=== PATIENT | male | born 1965 | race Caucasian/White ===

== ENCOUNTER 2016-12-04 13:49 | Inpatient (IN) | payer MEDICAID ==
[~2016-12-04] VITALS: Ht 185.4 cm; Wt 93.5 kg
[~2016-12-04 13:49] MED LIST: ASPI-496 PO; ATOR20TA9 PO; BLOOD PRESSURE MED; CARV3.1212 PO; DOCU-131 PO; GABA-826 PO; GABA300C10 PO; INSU100C5 SQ-INSULIN; INSU100I13 SQ; INSU100V8 SQ; LISI-167 PO; LOVA10TA PO; METF500T4 PO; NICO1PAT13 TD; NOVALOG SQ-INSULIN; OMEP-110 PO; OXYC5TAB3 PO; PANT40TA3 PO; POLY17PO5 PO; TRAM50TA2 PO; TRAZ100T15 PO; [UNRECOGNIZED DRUG - REMARK]
[2016-12-04] MEDS ORDERED: ONDANSETRON 2MG/ML, 2ML ONE (14:23)
[2016-12-04] MEDS ORDERED: FAMOTIDINE 20 MG/2 ML ONE (14:23)
[2016-12-04] MEDS ORDERED: FAMOTIDINE 20 MG/2 ML IVPush ONE (14:30)
[2016-12-04] MEDS ORDERED: ONDANSETRON 2MG/ML, 2ML IVPush ONE (14:30)
[2016-12-04] MEDS ORDERED: SODIUM CHLORIDE 0.9% 1,000ML IVBOLUS ONE ×2 (14:30→15:30)
[2016-12-04 14:34] LABS: PH, VENOUS 7.413 pH (7.320-7.420)
[2016-12-04 14:38] LABS: HEMATOCRIT 43.4 % (39.2-51.8); HEMOGLOBIN 14.2 g/dL (13.7-18.0); WHITE BLOOD COUNT 15.6 x10^3/uL (3.4-10)
[2016-12-04 14:47] LABS: ASPARTATE AMINO TRANSFERASE 10 U/L (15-37); BLOOD UREA NITROGEN 30 mg/dL (7-18)
[2016-12-04 14:53] LABS: IS PT STATUS REG ER OR PRE ER? YES
[2016-12-04] MEDS ORDERED: INSULIN REGULAR 100 UNITS/ML, 3ML VIAL IVPush ONE (15:00)
[2016-12-04] MEDS ORDERED: INSULIN SINGLE DOSE, ER SQ-INSULIN ONE (15:19)
[2016-12-04 17:54] VITALS: BP 101/65
[2016-12-04] MEDS ORDERED: ACETAMINOPHEN 325 MG TABLET PO PRN (18:30)
[2016-12-04] MEDS ORDERED: BISACODYL 10 MG SUPP PR PRN (18:30)
[2016-12-04] MEDS ORDERED: hydrALAzine 20 MG/ML, 1ML IVPush PRN (18:30)
[2016-12-04] MEDS ORDERED: ENALAPRILAT 1.25 MG/ML, 2ML IVPush PRN (18:30)
[2016-12-04] MEDS ORDERED: POLYETHYLENE GLYCOL 17 GM PACKET PO PRN (18:30)
[2016-12-04] MEDS ORDERED: ONDANSETRON 2MG/ML, 2ML IVPush PRN (18:30)
[2016-12-04] MEDS: INSULIN DETEMIR 100 UNITS/ML, PEN SQ-INSULIN SCH (19:07)
[2016-12-04 19:35] VITALS: BP 122/67
[2016-12-04] MEDS: HEPARIN 5,000 UNITS/ML, 1ML SQ SCH (19:35)
[2016-12-04] MEDS: PANTOPROZOLE 40MG TABLET PO SCH (19:35)
[2016-12-04] MEDS: SODIUM CHLORIDE 0.9% 1,000 ML IV SCH (19:36)
[2016-12-04] MEDS: OXYcodone IR 5MG TABLET PO PRN (19:43)
[2016-12-04] MEDS: INSULIN ASPART 100 UNITS/ML, PEN SQ-INSULIN SCH (21:00)
[2016-12-04] MEDS ORDERED: GABAPENTIN 300 MG CAPSULE PO SCH (21:00)
[2016-12-04] MEDS ORDERED: OMEPRAZOLE 20 MG CAPSULE.DR PO SCH (21:00)
[2016-12-04] MEDS: ATORVASTATIN 20 MG TABLET PO SCH (21:01)
[2016-12-04] MEDS: CARVEDILOL 3.125 MG TABLET PO SCH (21:01)
[2016-12-04] MEDS: GABAPENTIN 300 MG CAPSULE PO SCH (21:02)
[2016-12-05 00:07] LABS: IS PT STATUS REG ER OR PRE ER? NO
[2016-12-05] MEDS: HYDROmorphone 2 MG/ML, 1ML IVPush PRN ×2 (00:19→07:59)
[2016-12-05] MEDS: HEPARIN 5,000 UNITS/ML, 1ML SQ SCH ×3 (02:30→18:25)
[2016-12-05 05:35] VITALS: BP 124/72
[2016-12-05 05:59] LABS: HEMATOCRIT 38.3 % (39.2-51.8); HEMOGLOBIN 12.5 g/dL (13.7-18.0); WHITE BLOOD COUNT 13.4 x10^3/uL (3.4-10)
[2016-12-05 06:21] LABS: IS PT STATUS REG ER OR PRE ER? NO
[2016-12-05 06:22] LABS: ASPARTATE AMINO TRANSFERASE 57 U/L (15-37); BLOOD UREA NITROGEN 33 mg/dL (7-18)
[2016-12-05] MEDS: INSULIN DETEMIR 100 UNITS/ML, PEN SQ-INSULIN SCH ×2 (07:13→21:42)
[2016-12-05] MEDS: SODIUM CHLORIDE 0.9% 1,000 ML IV SCH (07:16)
[2016-12-05 07:51] VITALS: BP 104/63
[2016-12-05] MEDS: INSULIN ASPART 100 UNITS/ML, PEN SQ-INSULIN SCH ×4 (07:58→21:43)
[2016-12-05] MEDS ORDERED: INSULIN DETEMIR 100 UNITS/ML, PEN SQ-INSULIN ONE (08:00)
[2016-12-05] MEDS: GABAPENTIN 300 MG CAPSULE PO SCH ×3 (08:03→21:15)
[2016-12-05] MEDS: CARVEDILOL 3.125 MG TABLET PO SCH ×2 (08:03→21:15)
[2016-12-05] MEDS: PANTOPROZOLE 40MG TABLET PO SCH (08:03)
[2016-12-05] MEDS: ASPIRIN 81 MG TABLET EC PO SCH (08:03)
[2016-12-05] MEDS ORDERED: CEFTRIAXONE PMX 2GM/50ML 50 ML IV SCH (08:30)
[2016-12-05] MEDS ORDERED: VANCOMYCIN PMX 1GM/200ML 200 ML IV ONE (09:00)
[2016-12-05] MEDS ORDERED: VANCOMYCIN PER PHARMACY MC PRN (09:00)
[2016-12-05] MEDS ORDERED: PHARMACOKINETIC CONSULTATION MC ONE (09:30)
[2016-12-05] MEDS ORDERED: PHARMACOKINETIC MONITORING MC PRN (09:30)
[2016-12-05] MEDS: VANCOMYCIN 1,900 MG in SODIUM CHLORIDE 0.9% 250 ML IV SCH (10:24)
[2016-12-05 14:56] VITALS: BP 133/76
[2016-12-05] MEDS: OXYcodone IR 5MG TABLET PO PRN ×2 (16:54→21:41)
[2016-12-05 18:42] VITALS: BP 102/62
[2016-12-05] MEDS ORDERED: GADOBUTROL 10 MMOL/10 ML PFS ONE (19:26)
[2016-12-05] MEDS: ATORVASTATIN 20 MG TABLET PO SCH (21:15)
[2016-12-06 02:00] VITALS: BP 113/64
[2016-12-06] MEDS: HEPARIN 5,000 UNITS/ML, 1ML SQ SCH ×3 (02:01→18:30)
[2016-12-06 05:04] LABS: HEMATOCRIT 34.1 % (39.2-51.8); HEMOGLOBIN 11.2 g/dL (13.7-18.0); WHITE BLOOD COUNT 9.7 x10^3/uL (3.4-10)
[2016-12-06 05:10] LABS: BLOOD UREA NITROGEN 39 mg/dL (7-18)
[2016-12-06 06:38] VITALS: BP 123/76
[2016-12-06] MEDS: ASPIRIN 81 MG TABLET EC PO SCH (08:19)
[2016-12-06] MEDS: PANTOPROZOLE 40MG TABLET PO SCH (08:19)
[2016-12-06] MEDS: GABAPENTIN 300 MG CAPSULE PO SCH ×3 (08:19→20:46)
[2016-12-06] MEDS: INSULIN DETEMIR 100 UNITS/ML, PEN SQ-INSULIN SCH ×2 (08:20→20:44)
[2016-12-06] MEDS: INSULIN ASPART 100 UNITS/ML, PEN SQ-INSULIN SCH ×4 (08:21→20:45)
[2016-12-06] MEDS: CARVEDILOL 3.125 MG TABLET PO SCH ×2 (08:22→20:46)
[2016-12-06] MEDS: VANCOMYCIN 1,900 MG in SODIUM CHLORIDE 0.9% 250 ML IV SCH (10:06)
[2016-12-06] MEDS: SODIUM CHLORIDE 0.9% 1,000 ML IV SCH ×2 (12:21→20:46)
[2016-12-06 14:08] VITALS: BP 108/64
[2016-12-06 18:30] VITALS: BP 112/60
[2016-12-06 18:55] VITALS: BP 110/65
[2016-12-06] MEDS: ATORVASTATIN 20 MG TABLET PO SCH (20:45)
[2016-12-06] MEDS: OXYcodone IR 5MG TABLET PO PRN (20:45)
[2016-12-07 02:15] VITALS: BP 148/81
[2016-12-07] MEDS: HEPARIN 5,000 UNITS/ML, 1ML SQ SCH ×3 (02:22→20:17)
[2016-12-07] MEDS: OXYcodone IR 5MG TABLET PO PRN ×4 (02:22→20:51)
[2016-12-07 05:38] LABS: BLOOD UREA NITROGEN 37 mg/dL (7-18)
[2016-12-07] MEDS: INSULIN ASPART 100 UNITS/ML, PEN SQ-INSULIN SCH ×4 (07:00→20:19)
[2016-12-07 07:15] VITALS: BP 118/73
[2016-12-07] MEDS: PANTOPROZOLE 40MG TABLET PO SCH (07:30)
[2016-12-07] MEDS ORDERED: NICOTINE 21 MG/24 HR PATCH.TD24 TD ONE (08:00)
[2016-12-07] MEDS: INSULIN DETEMIR 100 UNITS/ML, PEN SQ-INSULIN SCH ×2 (09:23→20:20)
[2016-12-07] MEDS ORDERED: REGADENOSON 0.4 MG/5 ML SYRINGE ONE (10:52)
[2016-12-07] MEDS: GABAPENTIN 300 MG CAPSULE PO SCH ×3 (11:45→20:18)
[2016-12-07] MEDS: CARVEDILOL 3.125 MG TABLET PO SCH ×2 (11:46→20:17)
[2016-12-07] MEDS: ASPIRIN 81 MG TABLET EC PO SCH (11:46)
[2016-12-07] MEDS: VANCOMYCIN 1,900 MG in SODIUM CHLORIDE 0.9% 250 ML IV SCH (11:46)
[2016-12-07 15:32] VITALS: BP 121/75
[2016-12-07 19:00] VITALS: BP 100/67
[2016-12-07 19:50] VITALS: BP 137/76
[2016-12-07] MEDS: ATORVASTATIN 20 MG TABLET PO SCH (20:18)
[2016-12-08 02:00] VITALS: BP 103/65
[2016-12-08] MEDS: OXYcodone IR 5MG TABLET PO PRN ×2 (04:35→14:05)
[2016-12-08] MEDS: HEPARIN 5,000 UNITS/ML, 1ML SQ SCH ×3 (04:50→20:18)
[2016-12-08 06:33] VITALS: BP 125/79
[2016-12-08] MEDS: INSULIN ASPART 100 UNITS/ML, PEN SQ-INSULIN SCH ×5 (08:10→21:00)
[2016-12-08] MEDS: CARVEDILOL 3.125 MG TABLET PO SCH ×2 (08:11→20:17)
[2016-12-08] MEDS: INSULIN DETEMIR 100 UNITS/ML, PEN SQ-INSULIN SCH ×3 (08:11→21:31)
[2016-12-08] MEDS: PANTOPROZOLE 40MG TABLET PO SCH (08:11)
[2016-12-08] MEDS: GABAPENTIN 300 MG CAPSULE PO SCH ×4 (08:12→20:17)
[2016-12-08] MEDS: ASPIRIN 81 MG TABLET EC PO SCH (08:12)
[2016-12-08] MEDS: VANCOMYCIN 1,900 MG in SODIUM CHLORIDE 0.9% 250 ML IV SCH (09:55)
[2016-12-08 13:31] VITALS: BP 151/93
[2016-12-08 20:00] VITALS: BP 142/80
[2016-12-08] MEDS: ATORVASTATIN 20 MG TABLET PO SCH (20:17)
[2016-12-09 03:15] VITALS: BP 127/73
[2016-12-09] MEDS: OXYcodone IR 5MG TABLET PO PRN ×3 (04:23→21:38)
[2016-12-09] MEDS: HEPARIN 5,000 UNITS/ML, 1ML SQ SCH ×3 (04:24→21:35)
[2016-12-09 07:12] VITALS: BP 122/73
[2016-12-09] MEDS: INSULIN ASPART 100 UNITS/ML, PEN SQ-INSULIN SCH ×4 (07:56→21:49)
[2016-12-09] MEDS: INSULIN DETEMIR 100 UNITS/ML, PEN SQ-INSULIN SCH ×2 (07:57→21:48)
[2016-12-09] MEDS: GABAPENTIN 300 MG CAPSULE PO SCH ×3 (07:58→21:36)
[2016-12-09] MEDS: PANTOPROZOLE 40MG TABLET PO SCH (07:58)
[2016-12-09] MEDS: ASPIRIN 81 MG TABLET EC PO SCH (07:58)
[2016-12-09] MEDS: CARVEDILOL 3.125 MG TABLET PO SCH ×2 (07:59→21:36)
[2016-12-09] MEDS ORDERED: INSULIN DETEMIR 100 UNITS/ML, PEN SQ-INSULIN SCH (08:00)
[2016-12-09] MEDS ORDERED: IBUPROFEN 200 MG TABLET PO PRN (08:30)
[2016-12-09] MEDS ORDERED: HYDROmorphone 2MG TABLET PO PRN (08:30)
[2016-12-09] MEDS: VANCOMYCIN 1,900 MG in SODIUM CHLORIDE 0.9% 250 ML IV SCH (10:35)
[2016-12-09] MEDS: NICOTINE 21 MG/24 HR PATCH.TD24 TD SCH (10:35)
[2016-12-09 13:02] VITALS: BP 123/76
[2016-12-09] MEDS: DOCUSATE 100 MG CAPSULE PO PRN (17:31)
[2016-12-09 19:02] VITALS: BP 122/62
[2016-12-09] MEDS: ATORVASTATIN 20 MG TABLET PO SCH (21:36)
[2016-12-09] MEDS ORDERED: ENALAPRILAT 1.25 MG/ML, 2ML IVPush PRN (22:28)
[2016-12-10 02:35] VITALS: BP 122/69
[2016-12-10 05:09] LABS: HEMATOCRIT 28.5 % (39.2-51.8); HEMOGLOBIN 9.4 g/dL (13.7-18.0); WHITE BLOOD COUNT 14.7 x10^3/uL (3.4-10)
[2016-12-10 05:16] LABS: BLOOD UREA NITROGEN 55 mg/dL (7-18)
[2016-12-10] MEDS: HEPARIN 5,000 UNITS/ML, 1ML SQ SCH ×3 (05:25→22:24)
[2016-12-10] MEDS: INSULIN ASPART 100 UNITS/ML, PEN SQ-INSULIN SCH ×4 (07:00→20:07)
[2016-12-10 07:40] VITALS: BP 113/73
[2016-12-10] MEDS ORDERED: SODIUM CHLORIDE 0.9% 1,000 ML IV SCH (08:30)
[2016-12-10] MEDS: PANTOPROZOLE 40MG TABLET PO SCH (08:58)
[2016-12-10] MEDS: GABAPENTIN 300 MG CAPSULE PO SCH ×3 (08:59→20:05)
[2016-12-10] MEDS: CARVEDILOL 3.125 MG TABLET PO SCH ×2 (08:59→20:05)
[2016-12-10] MEDS: ASPIRIN 81 MG TABLET EC PO SCH (08:59)
[2016-12-10] MEDS: NICOTINE 21 MG/24 HR PATCH.TD24 TD SCH (08:59)
[2016-12-10] MEDS: INSULIN DETEMIR 100 UNITS/ML, PEN SQ-INSULIN SCH ×3 (09:00→20:07)
[2016-12-10 10:21] LABS: BLOOD UREA NITROGEN 59 mg/dL (7-18)
[2016-12-10 12:07] LABS: A/G RATIO 0.8 (0.7-1.7); ALBUMIN 2.5 g/dL (2.9-4.4); ALPHA-1-GLOBULIN 0.4 g/dL (0.0-0.4); BETA GLOBULIN 0.9 g/dL (0.7-1.3); GAMMA GLOBULIN 0.5 g/dL (0.4-1.8); PROTEIN TOTAL 5.7 g/dL (6.0-8.5)
[2016-12-10 13:20] VITALS: BP 178/82
[2016-12-10] MEDS: OXYcodone IR 5MG TABLET PO PRN (13:27)
[2016-12-10] MEDS: ERTAPENEM 1 GM in SODIUM CHLORIDE 0.9% 50 ML IV SCH (14:46)
[2016-12-10] MEDS: DOCUSATE 100 MG CAPSULE PO PRN (17:35)
[2016-12-10 19:37] VITALS: BP 110/67
[2016-12-10] MEDS: ATORVASTATIN 20 MG TABLET PO SCH (20:05)
[2016-12-11 01:56] VITALS: BP 100/66
[2016-12-11] MEDS: HEPARIN 5,000 UNITS/ML, 1ML SQ SCH ×3 (05:04→21:33)
[2016-12-11 06:35] VITALS: BP 109/71
[2016-12-11] MEDS: INSULIN ASPART 100 UNITS/ML, PEN SQ-INSULIN SCH ×4 (07:00→21:27)
[2016-12-11 07:19] LABS: ASPARTATE AMINO TRANSFERASE 32 U/L (15-37); BLOOD UREA NITROGEN 68 mg/dL (7-18)
[2016-12-11 07:20] LABS: HEMATOCRIT 25.9 % (39.2-51.8); HEMOGLOBIN 8.7 g/dL (13.7-18.0); WHITE BLOOD COUNT 17.3 x10^3/uL (3.4-10)
[2016-12-11 08:20] LABS: DIFF TOTAL CELLS COUNTED 100 CELL DIFF
[2016-12-11 08:21] LABS: VERIFY COUNTS? YES
[2016-12-11] MEDS: ASPIRIN 81 MG TABLET EC PO SCH (08:44)
[2016-12-11] MEDS: DOCUSATE 100 MG CAPSULE PO PRN (08:44)
[2016-12-11] MEDS: NICOTINE 21 MG/24 HR PATCH.TD24 TD SCH (08:45)
[2016-12-11] MEDS: PANTOPROZOLE 40MG TABLET PO SCH (08:45)
[2016-12-11] MEDS: GABAPENTIN 300 MG CAPSULE PO SCH ×3 (08:45→19:38)
[2016-12-11] MEDS: CARVEDILOL 3.125 MG TABLET PO SCH ×2 (08:45→19:38)
[2016-12-11] MEDS ORDERED: SODIUM POLYSTYRENE SULFONATE ORAL SUSP PO ONE (10:00)
[2016-12-11] MEDS: INSULIN DETEMIR 100 UNITS/ML, PEN SQ-INSULIN SCH ×2 (11:00→21:33)
[2016-12-11] MEDS: ERTAPENEM 1 GM in SODIUM CHLORIDE 0.9% 50 ML IV SCH (14:32)
[2016-12-11] MEDS: OXYcodone IR 5MG TABLET PO PRN ×2 (14:42→21:27)
[2016-12-11 16:16] VITALS: BP 113/69
[2016-12-11] MEDS: ATORVASTATIN 20 MG TABLET PO SCH (19:38)
[2016-12-11 21:17] VITALS: BP 102/65
[2016-12-12] MEDS: HEPARIN 5,000 UNITS/ML, 1ML SQ SCH ×3 (02:56→23:04)
[2016-12-12 03:49] VITALS: BP 115/63
[2016-12-12 07:38] VITALS: BP 118/69
[2016-12-12] MEDS: INSULIN ASPART 100 UNITS/ML, PEN SQ-INSULIN SCH ×4 (08:45→20:52)
[2016-12-12] MEDS: NICOTINE 21 MG/24 HR PATCH.TD24 TD SCH (08:47)
[2016-12-12] MEDS: PANTOPROZOLE 40MG TABLET PO SCH (08:47)
[2016-12-12] MEDS: CARVEDILOL 3.125 MG TABLET PO SCH ×2 (08:47→21:03)
[2016-12-12] MEDS: GABAPENTIN 300 MG CAPSULE PO SCH ×3 (08:47→21:03)
[2016-12-12] MEDS: ASPIRIN 81 MG TABLET EC PO SCH (08:47)
[2016-12-12] MEDS: OXYcodone IR 5MG TABLET PO PRN ×2 (08:48→13:21)
[2016-12-12 11:04] LABS: HEMATOCRIT 26.6 % (39.2-51.8); HEMOGLOBIN 8.9 g/dL (13.7-18.0); WHITE BLOOD COUNT 20.8 x10^3/uL (3.4-10)
[2016-12-12 11:11] LABS: BLOOD UREA NITROGEN 80 mg/dL (7-18)
[2016-12-12] MEDS ORDERED: FUROSEMIDE 40 MG/4 ML IV ONE (11:30)
[2016-12-12 11:36] LABS: DIFF TOTAL CELLS COUNTED 100 CELL DIFF
[2016-12-12 11:37] LABS: VERIFY COUNTS? YES
[2016-12-12 11:46] LABS: POLYCHROMASIA 1+
[2016-12-12 13:17] VITALS: BP 110/69
[2016-12-12] MEDS: INSULIN DETEMIR 100 UNITS/ML, PEN SQ-INSULIN SCH ×2 (13:17→23:00)
[2016-12-12] MEDS: ERTAPENEM 1 GM in SODIUM CHLORIDE 0.9% 50 ML IV SCH (13:49)
[2016-12-12 19:49] VITALS: BP 106/56
[2016-12-12] MEDS: ATORVASTATIN 20 MG TABLET PO SCH (21:03)
[2016-12-13] MEDS: OXYcodone IR 5MG TABLET PO PRN ×2 (00:20→06:07)
[2016-12-13 00:24] VITALS: BP 123/68
[2016-12-13 05:19] LABS: HEMATOCRIT 26.9 % (39.2-51.8); WHITE BLOOD COUNT 20.1 x10^3/uL (3.4-10)
[2016-12-13] MEDS: HEPARIN 5,000 UNITS/ML, 1ML SQ SCH ×3 (05:23→21:55)
[2016-12-13 05:30] LABS: BLOOD UREA NITROGEN 80 mg/dL (7-18)
[2016-12-13 06:34] VITALS: BP 123/72
[2016-12-13] MEDS: PANTOPROZOLE 40MG TABLET PO SCH (08:20)
[2016-12-13] MEDS: ASPIRIN 81 MG TABLET EC PO SCH (08:20)
[2016-12-13] MEDS: GABAPENTIN 300 MG CAPSULE PO SCH ×3 (08:21→21:55)
[2016-12-13] MEDS: CARVEDILOL 3.125 MG TABLET PO SCH (08:21)
[2016-12-13] MEDS: NICOTINE 21 MG/24 HR PATCH.TD24 TD SCH (08:22)
[2016-12-13] MEDS: INSULIN ASPART 100 UNITS/ML, PEN SQ-INSULIN SCH ×4 (08:22→22:29)
[2016-12-13] MEDS: INSULIN DETEMIR 100 UNITS/ML, PEN SQ-INSULIN SCH ×2 (12:08→22:08)
[2016-12-13 13:12] VITALS: BP 118/73
[2016-12-13] MEDS: ALBUMIN HUMAN 25% 100 ML IV SCH ×2 (13:43→19:24)
[2016-12-13] MEDS: ERTAPENEM 0.5 GM in SODIUM CHLORIDE 0.9% 50 ML IV SCH (15:19)
[2016-12-13] MEDS ORDERED: PHENYLEPHRINE 10 MG/ML ONE (17:18)
[2016-12-13] MEDS ORDERED: MIDAZOLAM 1 MG/ML, 2ML ONE (17:20)
[2016-12-13] MEDS ORDERED: FENTANYL PF 250 MCG/5ML ONE (17:20)
[2016-12-13] MEDS ORDERED: PROMETHAZINE 25 MG/ML, 1ML IV PRN ×2 (18:00)
[2016-12-13] MEDS ORDERED: MIDAZOLAM 1 MG/ML, 2ML IV PRN ×2 (18:00)
[2016-12-13] MEDS ORDERED: LABETALOL 5MG/ML, 20ML IV PRN ×2 (18:00)
[2016-12-13] MEDS ORDERED: hydrALAzine 20 MG/ML, 1ML IV PRN ×2 (18:00)
[2016-12-13] MEDS ORDERED: OXYcodone 5 MG/5 ML ORAL.SOL UDC PO PRN ×2 (18:00)
[2016-12-13] MEDS ORDERED: ONDANSETRON 2MG/ML, 2ML IVPush PRN ×2 (18:00)
[2016-12-13] MEDS ORDERED: FENTANYL PF 100 MCG/2ML IV PRN ×2 (18:00)
[2016-12-13] MEDS ORDERED: HYDROmorphone 1 MG/ML, 1ML IV PRN ×2 (18:00)
[2016-12-13] MEDS ORDERED: ALBUTEROL SULFATE 2.5 MG/3 ML NPPB PRN ×2 (18:00)
[2016-12-13] MEDS ORDERED: MEPERIDINE/PF 25MG/0.5ML IVPush PRN ×2 (18:00)
[2016-12-13 20:47] VITALS: BP 111/62
[2016-12-13] MEDS: ATORVASTATIN 20 MG TABLET PO SCH (21:54)
[2016-12-14] MEDS: ALBUMIN HUMAN 25% 100 ML IV SCH ×4 (01:09→19:00)
[2016-12-14 03:43] VITALS: BP 116/67
[2016-12-14 05:32] LABS: HEMOGLOBIN 7.9 g/dL (13.7-18.0); WHITE BLOOD COUNT 21.9 x10^3/uL (3.4-10)
[2016-12-14 06:05] LABS: ASPARTATE AMINO TRANSFERASE 26 U/L (15-37); BLOOD UREA NITROGEN 92 mg/dL (7-18)
[2016-12-14 08:05] VITALS: BP 100/54
[2016-12-14] MEDS: INSULIN ASPART 100 UNITS/ML, PEN SQ-INSULIN SCH ×4 (08:12→23:33)
[2016-12-14] MEDS: PANTOPROZOLE 40MG TABLET PO SCH (08:13)
[2016-12-14] MEDS: ASPIRIN 81 MG TABLET EC PO SCH (08:13)
[2016-12-14] MEDS: GABAPENTIN 300 MG CAPSULE PO SCH ×3 (08:13→23:32)
[2016-12-14] MEDS ORDERED: ALBUMIN HUMAN 25% 100 ML IV SCH (10:30)
[2016-12-14] MEDS ORDERED: INSULIN REGULAR 100 UNITS/ML, 3ML VIAL IVPush ONE (11:00)
[2016-12-14] MEDS ORDERED: DEXTROSE 50%, 50ML SYRINGE IVPush ONE (11:00)
[2016-12-14] MEDS: INSULIN DETEMIR 100 UNITS/ML, PEN SQ-INSULIN SCH ×2 (11:00→23:34)
[2016-12-14 11:55] VITALS: BP 112/56
[2016-12-14 12:20] VITALS: BP 122/70
[2016-12-14 12:45] VITALS: BP 114/66
[2016-12-14] MEDS: ERTAPENEM 0.5 GM in SODIUM CHLORIDE 0.9% 50 ML IV SCH (16:20)
[2016-12-14] MEDS: ATORVASTATIN 20 MG TABLET PO SCH (23:32)
[2016-12-15] MEDS: ALBUMIN HUMAN 25% 100 ML IV SCH ×2 (00:49→08:17)
[2016-12-15 03:18] VITALS: BP 155/75
[2016-12-15] MEDS: OXYcodone IR 5MG TABLET PO PRN (03:19)
[2016-12-15 05:45] LABS: BLOOD UREA NITROGEN 62 mg/dL (7-18)
[2016-12-15 05:47] LABS: HEMOGLOBIN 7.6 g/dL (13.7-18.0); WHITE BLOOD COUNT 16.9 x10^3/uL (3.4-10)
[2016-12-15 05:49] LABS: HEMATOCRIT 22.6 % (39.2-51.8)
[2016-12-15] MEDS: PANTOPROZOLE 40MG TABLET PO SCH (07:30)
[2016-12-15] MEDS: INSULIN ASPART 100 UNITS/ML, PEN SQ-INSULIN SCH ×4 (07:59→21:00)
[2016-12-15 08:45] LABS: HEP B SURF. AB < 3.1 mIU/mL (0.0-10.0)
[2016-12-15 09:00] VITALS: BP 118/63
[2016-12-15] MEDS: GABAPENTIN 300 MG CAPSULE PO SCH ×3 (09:32→21:00)
[2016-12-15] MEDS: ASPIRIN 81 MG TABLET EC PO SCH (09:32)
[2016-12-15 10:30] VITALS: BP 120/63
[2016-12-15] MEDS: INSULIN DETEMIR 100 UNITS/ML, PEN SQ-INSULIN SCH ×2 (11:13→22:17)
[2016-12-15 14:31] VITALS: BP 127/71
[2016-12-15] MEDS: ERTAPENEM 0.5 GM in SODIUM CHLORIDE 0.9% 50 ML IV SCH (15:00)
[2016-12-15] MEDS ORDERED: LORazepam 2 MG/ML, 1ML IVPush ONE (16:30)
[2016-12-15 20:27] VITALS: BP 118/66
[2016-12-15] MEDS: ATORVASTATIN 20 MG TABLET PO SCH (21:00)
[2016-12-16] MEDS: OXYcodone IR 5MG TABLET PO PRN ×3 (03:58→17:24)
[2016-12-16 05:48] VITALS: BP 132/72
[2016-12-16 07:42] VITALS: BP 153/79
[2016-12-16] MEDS: PANTOPROZOLE 40MG TABLET PO SCH (08:27)
[2016-12-16] MEDS: INSULIN ASPART 100 UNITS/ML, PEN SQ-INSULIN SCH ×4 (08:27→21:00)
[2016-12-16] MEDS: GABAPENTIN 300 MG CAPSULE PO SCH ×3 (08:27→21:11)
[2016-12-16] MEDS: ASPIRIN 81 MG TABLET EC PO SCH (08:27)
[2016-12-16] MEDS: INSULIN DETEMIR 100 UNITS/ML, PEN SQ-INSULIN SCH ×2 (11:42→22:47)
[2016-12-16] MEDS: NICOTINE 21 MG/24 HR PATCH.TD24 TD SCH (12:24)
[2016-12-16 13:18] VITALS: BP 125/69
[2016-12-16] MEDS: ERTAPENEM 0.5 GM in SODIUM CHLORIDE 0.9% 50 ML IV SCH (15:59)
[2016-12-16] MEDS ORDERED: DAPTOMYCIN IVPB SCH (16:00)
[2016-12-16] MEDS ORDERED: SODIUM CHLORIDE 0.9% IVPB SCH (16:00)
[2016-12-16] MEDS: DAPTOMYCIN 600 MG in SODIUM CHLORIDE 0.9% 100 ML IVPB SCH (18:24)
[2016-12-16 18:51] VITALS: BP 157/86
[2016-12-16] MEDS: ATORVASTATIN 20 MG TABLET PO SCH (21:11)
[2016-12-17 02:25] VITALS: BP 143/81
[2016-12-17 05:40] LABS: HEMOGLOBIN 8.1 g/dL (13.7-18.0); WHITE BLOOD COUNT 13.8 x10^3/uL (3.4-10)
[2016-12-17 06:33] LABS: ASPARTATE AMINO TRANSFERASE 38 U/L (15-37); BLOOD UREA NITROGEN 54 mg/dL (7-18)
[2016-12-17 08:00] VITALS: BP 158/85
[2016-12-17] MEDS: INSULIN ASPART 100 UNITS/ML, PEN SQ-INSULIN SCH ×4 (08:30→20:57)
[2016-12-17] MEDS: GABAPENTIN 300 MG CAPSULE PO SCH ×3 (08:31→20:56)
[2016-12-17] MEDS: PANTOPROZOLE 40MG TABLET PO SCH (08:31)
[2016-12-17] MEDS: ASPIRIN 81 MG TABLET EC PO SCH (08:31)
[2016-12-17] MEDS: OXYcodone IR 5MG TABLET PO PRN ×3 (08:35→20:56)
[2016-12-17] MEDS: INSULIN DETEMIR 100 UNITS/ML, PEN SQ-INSULIN SCH ×2 (11:59→22:56)
[2016-12-17] MEDS: NICOTINE 21 MG/24 HR PATCH.TD24 TD SCH (12:44)
[2016-12-17 12:50] VITALS: BP 143/71
[2016-12-17] MEDS: ERTAPENEM 0.5 GM in SODIUM CHLORIDE 0.9% 50 ML IV SCH (15:35)
[2016-12-17 19:30] VITALS: BP 160/85
[2016-12-17] MEDS: ATORVASTATIN 20 MG TABLET PO SCH (20:56)
[2016-12-17 21:31] LABS: IS PT STATUS REG ER OR PRE ER? NO
[2016-12-18 02:59] VITALS: BP 127/75
[2016-12-18 06:39] VITALS: BP 140/69
[2016-12-18] MEDS: PANTOPROZOLE 40MG TABLET PO SCH (08:57)
[2016-12-18] MEDS: ASPIRIN 81 MG TABLET EC PO SCH (08:57)
[2016-12-18] MEDS: INSULIN ASPART 100 UNITS/ML, PEN SQ-INSULIN SCH ×4 (08:57→21:00)
[2016-12-18] MEDS: GABAPENTIN 300 MG CAPSULE PO SCH ×3 (08:57→21:11)
[2016-12-18] MEDS: NICOTINE 21 MG/24 HR PATCH.TD24 TD SCH (11:34)
[2016-12-18] MEDS: INSULIN DETEMIR 100 UNITS/ML, PEN SQ-INSULIN SCH ×2 (11:34→22:15)
[2016-12-18 11:47] LABS: BLOOD UREA NITROGEN 58 mg/dL (7-18)
[2016-12-18 11:52] LABS: ASPARTATE AMINO TRANSFERASE 25 U/L (15-37)
[2016-12-18 13:02] VITALS: BP 155/79
[2016-12-18] MEDS: ERTAPENEM 0.5 GM in SODIUM CHLORIDE 0.9% 50 ML IV SCH (15:24)
[2016-12-18] MEDS: OXYcodone IR 5MG TABLET PO PRN ×2 (16:29→21:11)
[2016-12-18] MEDS: DAPTOMYCIN 600 MG in SODIUM CHLORIDE 0.9% 100 ML IVPB SCH (18:02)
[2016-12-18 19:04] VITALS: BP 152/77
[2016-12-18] MEDS: ATORVASTATIN 20 MG TABLET PO SCH (21:11)
[2016-12-18] MEDS: DOCUSATE 100 MG CAPSULE PO SCH (21:11)
[2016-12-19 04:45] VITALS: BP 132/67
[2016-12-19 05:33] LABS: HEMATOCRIT 24.6 % (39.2-51.8); WHITE BLOOD COUNT 11.9 x10^3/uL (3.4-10)
[2016-12-19 05:42] LABS: ASPARTATE AMINO TRANSFERASE 20 U/L (15-37); BLOOD UREA NITROGEN 59 mg/dL (7-18)
[2016-12-19 06:48] VITALS: BP 138/71
[2016-12-19] MEDS: INSULIN ASPART 100 UNITS/ML, PEN SQ-INSULIN SCH ×4 (08:28→21:00)
[2016-12-19] MEDS: PANTOPROZOLE 40MG TABLET PO SCH (08:28)
[2016-12-19] MEDS: ASPIRIN 81 MG TABLET EC PO SCH (08:28)
[2016-12-19] MEDS: DOCUSATE 100 MG CAPSULE PO SCH ×2 (08:28→22:13)
[2016-12-19] MEDS: GABAPENTIN 300 MG CAPSULE PO SCH ×3 (08:29→22:13)
[2016-12-19] MEDS: OXYcodone IR 5MG TABLET PO PRN ×2 (12:48→21:28)
[2016-12-19] MEDS: INSULIN DETEMIR 100 UNITS/ML, PEN SQ-INSULIN SCH ×2 (12:49→21:32)
[2016-12-19] MEDS: NICOTINE 21 MG/24 HR PATCH.TD24 TD SCH (12:50)
[2016-12-19 12:55] VITALS: BP 144/77
[2016-12-19] MEDS: ERTAPENEM 0.5 GM in SODIUM CHLORIDE 0.9% 50 ML IV SCH (17:02)
[2016-12-19 20:00] VITALS: BP 123/60
[2016-12-19] MEDS: ATORVASTATIN 20 MG TABLET PO SCH (21:28)
[2016-12-20 01:37] VITALS: BP 119/65
[2016-12-20] MEDS: OXYcodone IR 5MG TABLET PO PRN ×3 (03:30→22:20)
[2016-12-20 05:40] LABS: HEMATOCRIT 23.3 % (39.2-51.8); HEMOGLOBIN 7.7 g/dL (13.7-18.0); WHITE BLOOD COUNT 13.1 x10^3/uL (3.4-10)
[2016-12-20 05:55] LABS: BLOOD UREA NITROGEN 62 mg/dL (7-18)
[2016-12-20 06:47] VITALS: BP 110/62
[2016-12-20] MEDS: INSULIN ASPART 100 UNITS/ML, PEN SQ-INSULIN SCH ×4 (07:00→21:00)
[2016-12-20] MEDS: ASPIRIN 81 MG TABLET EC PO SCH (08:01)
[2016-12-20] MEDS: PANTOPROZOLE 40MG TABLET PO SCH (08:01)
[2016-12-20] MEDS: DOCUSATE 100 MG CAPSULE PO SCH ×2 (08:02→20:30)
[2016-12-20] MEDS: GABAPENTIN 300 MG CAPSULE PO SCH ×3 (08:02→20:30)
[2016-12-20 09:22] VITALS: BP 138/75
[2016-12-20] MEDS: INSULIN DETEMIR 100 UNITS/ML, PEN SQ-INSULIN SCH ×2 (11:08→22:20)
[2016-12-20] MEDS: NICOTINE 21 MG/24 HR PATCH.TD24 TD SCH (11:11)
[2016-12-20 13:22] VITALS: BP 153/80
[2016-12-20] MEDS: ERTAPENEM 0.5 GM in SODIUM CHLORIDE 0.9% 50 ML IV SCH (17:08)
[2016-12-20] MEDS: DAPTOMYCIN 600 MG in SODIUM CHLORIDE 0.9% 100 ML IVPB SCH (20:29)
[2016-12-20] MEDS: ATORVASTATIN 20 MG TABLET PO SCH (20:30)
[2016-12-20 20:40] VITALS: BP 148/71
[2016-12-21 01:38] VITALS: BP 125/72
[2016-12-21 06:22] LABS: HEMATOCRIT 23.3 % (39.2-51.8); HEMOGLOBIN 7.6 g/dL (13.7-18.0); WHITE BLOOD COUNT 9.6 x10^3/uL (3.4-10)
[2016-12-21 06:24] LABS: BLOOD UREA NITROGEN 58 mg/dL (7-18)
[2016-12-21] MEDS: INSULIN ASPART 100 UNITS/ML, PEN SQ-INSULIN SCH ×4 (07:00→22:21)
[2016-12-21] MEDS: PANTOPROZOLE 40MG TABLET PO SCH (07:30)
[2016-12-21 07:51] VITALS: BP 120/69
[2016-12-21] MEDS: ASPIRIN 81 MG TABLET EC PO SCH (09:00)
[2016-12-21] MEDS: GABAPENTIN 300 MG CAPSULE PO SCH ×3 (09:00→20:58)
[2016-12-21] MEDS: DOCUSATE 100 MG CAPSULE PO SCH ×2 (09:00→20:57)
[2016-12-21] MEDS: INSULIN DETEMIR 100 UNITS/ML, PEN SQ-INSULIN SCH ×2 (11:00→22:20)
[2016-12-21] MEDS: NICOTINE 21 MG/24 HR PATCH.TD24 TD SCH (12:00)
[2016-12-21 12:42] VITALS: BP 143/75
[2016-12-21] MEDS: ERTAPENEM 0.5 GM in SODIUM CHLORIDE 0.9% 50 ML IV SCH (15:34)
[2016-12-21] MEDS: OXYcodone IR 5MG TABLET PO PRN ×2 (15:45→20:58)
[2016-12-21 18:39] VITALS: BP 156/78
[2016-12-21] MEDS: ATORVASTATIN 20 MG TABLET PO SCH (20:58)
[2016-12-22 01:37] VITALS: BP 122/74
[2016-12-22 07:53] VITALS: BP 125/78
[2016-12-22] MEDS: INSULIN ASPART 100 UNITS/ML, PEN SQ-INSULIN SCH ×4 (08:00→20:47)
[2016-12-22 08:50] LABS: HEMATOCRIT 25.6 % (39.2-51.8); HEMOGLOBIN 8.3 g/dL (13.7-18.0); WHITE BLOOD COUNT 9.4 x10^3/uL (3.4-10)
[2016-12-22 09:02] LABS: BLOOD UREA NITROGEN 33 mg/dL (7-18)
[2016-12-22] MEDS: ASPIRIN 81 MG TABLET EC PO SCH (10:24)
[2016-12-22] MEDS: DOCUSATE 100 MG CAPSULE PO SCH ×2 (10:24→20:47)
[2016-12-22] MEDS: GABAPENTIN 300 MG CAPSULE PO SCH ×3 (10:24→20:47)
[2016-12-22] MEDS: HEPARIN 5,000 UNITS/ML, 1ML SQ SCH ×2 (10:25→19:32)
[2016-12-22] MEDS: OXYcodone IR 5MG TABLET PO PRN ×2 (12:19→20:20)
[2016-12-22] MEDS: NICOTINE 21 MG/24 HR PATCH.TD24 TD SCH (12:57)
[2016-12-22] MEDS: INSULIN DETEMIR 100 UNITS/ML, PEN SQ-INSULIN SCH ×2 (12:57→23:05)
[2016-12-22] MEDS ORDERED: OXYcodone IR 5MG TABLET ONE (13:33)
[2016-12-22 14:15] VITALS: BP 164/89
[2016-12-22] MEDS ORDERED: OXYcodone IR 5MG TABLET PO PRN (14:30)
[2016-12-22] MEDS: ERTAPENEM 0.5 GM in SODIUM CHLORIDE 0.9% 50 ML IV SCH (17:30)
[2016-12-22] MEDS ORDERED: POLYETHYLENE GLYCOL 17 GM PACKET PO PRN (18:30)
[2016-12-22] MEDS ORDERED: ONDANSETRON 2MG/ML, 2ML IVPush PRN (18:30)
[2016-12-22] MEDS: DAPTOMYCIN 600 MG in SODIUM CHLORIDE 0.9% 100 ML IVPB SCH (19:32)
[2016-12-22 20:25] VITALS: BP 135/88
[2016-12-22] MEDS: ATORVASTATIN 20 MG TABLET PO SCH (20:46)
[2016-12-23] MEDS: OXYcodone IR 5MG TABLET PO PRN ×4 (00:17→20:21)
[2016-12-23] MEDS: HEPARIN 5,000 UNITS/ML, 1ML SQ SCH ×3 (04:20→20:21)
[2016-12-23 04:22] VITALS: BP 125/77
[2016-12-23 04:50] LABS: HEMATOCRIT 24.6 % (39.2-51.8); WHITE BLOOD COUNT 9.2 x10^3/uL (3.4-10)
[2016-12-23 04:58] LABS: BLOOD UREA NITROGEN 23 mg/dL (7-18)
[2016-12-23] MEDS: INSULIN ASPART 100 UNITS/ML, PEN SQ-INSULIN SCH ×4 (07:00→20:27)
[2016-12-23 08:36] VITALS: BP 149/88
[2016-12-23] MEDS: DOCUSATE 100 MG CAPSULE PO SCH ×2 (09:28→20:21)
[2016-12-23] MEDS: GABAPENTIN 300 MG CAPSULE PO SCH ×3 (09:28→20:21)
[2016-12-23] MEDS: ASPIRIN 81 MG TABLET EC PO SCH (09:28)
[2016-12-23] MEDS: NICOTINE 21 MG/24 HR PATCH.TD24 TD SCH (11:47)
[2016-12-23] MEDS: INSULIN DETEMIR 100 UNITS/ML, PEN SQ-INSULIN SCH ×2 (12:30→23:00)
[2016-12-23 13:22] VITALS: BP 146/79
[2016-12-23] MEDS: ERTAPENEM 0.5 GM in SODIUM CHLORIDE 0.9% 50 ML IV SCH (15:19)
[2016-12-23] MEDS: ATORVASTATIN 20 MG TABLET PO SCH (20:21)
[2016-12-24] MEDS: HEPARIN 5,000 UNITS/ML, 1ML SQ SCH ×3 (04:29→20:43)
[2016-12-24 04:31] VITALS: BP 154/94
[2016-12-24] MEDS: INSULIN ASPART 100 UNITS/ML, PEN SQ-INSULIN SCH ×4 (07:00→20:44)
[2016-12-24] MEDS: DOCUSATE 100 MG CAPSULE PO SCH ×2 (08:30→20:43)
[2016-12-24] MEDS: ASPIRIN 81 MG TABLET EC PO SCH (08:30)
[2016-12-24] MEDS: GABAPENTIN 300 MG CAPSULE PO SCH ×3 (08:31→20:43)
[2016-12-24 09:49] VITALS: BP 148/82
[2016-12-24] MEDS: INSULIN DETEMIR 100 UNITS/ML, PEN SQ-INSULIN SCH ×2 (13:17→23:00)
[2016-12-24] MEDS: NICOTINE 21 MG/24 HR PATCH.TD24 TD SCH (13:18)
[2016-12-24] MEDS: ERTAPENEM 0.5 GM in SODIUM CHLORIDE 0.9% 50 ML IV SCH (15:05)
[2016-12-24] MEDS: OXYcodone IR 5MG TABLET PO PRN ×2 (15:11→20:51)
[2016-12-24 15:15] VITALS: BP 155/85
[2016-12-24 20:27] VITALS: BP 144/72
[2016-12-24] MEDS: DAPTOMYCIN 600 MG in SODIUM CHLORIDE 0.9% 100 ML IVPB SCH (20:29)
[2016-12-24] MEDS: ATORVASTATIN 20 MG TABLET PO SCH (20:43)
[2016-12-24] MEDS: NICOTINE 7 MG/24 HR PATCH.TD24 TD SCH (20:44)
[2016-12-24 23:08] VITALS: BP 123/71
[2016-12-25] MEDS: OXYcodone IR 5MG TABLET PO PRN ×2 (00:53→05:25)
[2016-12-25] MEDS: HEPARIN 5,000 UNITS/ML, 1ML SQ SCH ×3 (04:12→21:38)
[2016-12-25 05:26] VITALS: BP 131/77
[2016-12-25 06:40] LABS: HEMATOCRIT 24.8 % (39.2-51.8); HEMOGLOBIN 8.1 g/dL (13.7-18.0); WHITE BLOOD COUNT 7.8 x10^3/uL (3.4-10)
[2016-12-25 06:52] LABS: BLOOD UREA NITROGEN 28 mg/dL (7-18)
[2016-12-25 07:00] VITALS: BP 120/70
[2016-12-25] MEDS: GABAPENTIN 300 MG CAPSULE PO SCH ×3 (08:35→21:38)
[2016-12-25] MEDS: ASPIRIN 81 MG TABLET EC PO SCH (08:35)
[2016-12-25] MEDS: DOCUSATE 100 MG CAPSULE PO SCH ×2 (08:35→21:38)
[2016-12-25] MEDS: INSULIN ASPART 100 UNITS/ML, PEN SQ-INSULIN SCH ×4 (08:36→21:00)
[2016-12-25] MEDS: NICOTINE 21 MG/24 HR PATCH.TD24 TD SCH (12:00)
[2016-12-25] MEDS: INSULIN DETEMIR 100 UNITS/ML, PEN SQ-INSULIN SCH (12:04)
[2016-12-25 12:16] LABS: BLOOD UREA NITROGEN 31 mg/dL (7-18)
[2016-12-25 14:06] VITALS: BP 145/72
[2016-12-25] MEDS: ERTAPENEM 0.5 GM in SODIUM CHLORIDE 0.9% 50 ML IV SCH (15:57)
[2016-12-25 20:14] VITALS: BP 144/79
[2016-12-25] MEDS: NICOTINE 7 MG/24 HR PATCH.TD24 TD SCH (21:38)
[2016-12-25] MEDS: ATORVASTATIN 20 MG TABLET PO SCH (21:38)
[2016-12-26] MEDS: INSULIN DETEMIR 100 UNITS/ML, PEN SQ-INSULIN SCH ×3 (00:06→22:23)
[2016-12-26] MEDS: HEPARIN 5,000 UNITS/ML, 1ML SQ SCH ×3 (05:05→22:02)
[2016-12-26 06:36] LABS: HEMATOCRIT 27.2 % (39.2-51.8); HEMOGLOBIN 8.8 g/dL (13.7-18.0); WHITE BLOOD COUNT 8.5 x10^3/uL (3.4-10)
[2016-12-26 06:49] LABS: BLOOD UREA NITROGEN 42 mg/dL (7-18)
[2016-12-26 06:58] LABS: FERRITIN 317.9 ng/mL (26-388); TOTAL IRON BINDING CAPACITY 290 mcg/dL (250-450)
[2016-12-26] MEDS: DOCUSATE 100 MG CAPSULE PO SCH ×2 (09:00→22:01)
[2016-12-26] MEDS: INSULIN ASPART 100 UNITS/ML, PEN SQ-INSULIN SCH ×4 (09:41→22:24)
[2016-12-26] MEDS: GABAPENTIN 300 MG CAPSULE PO SCH ×3 (09:42→22:01)
[2016-12-26] MEDS: ASPIRIN 81 MG TABLET EC PO SCH (09:42)
[2016-12-26] MEDS: ERGOCALCIFEROL 50,000 UNIT CAPSULE PO SCH (09:47)
[2016-12-26] MEDS: NICOTINE 21 MG/24 HR PATCH.TD24 TD SCH (11:43)
[2016-12-26 13:39] VITALS: BP 150/82
[2016-12-26] MEDS: ERTAPENEM 0.5 GM in SODIUM CHLORIDE 0.9% 50 ML IV SCH (16:18)
[2016-12-26 20:08] VITALS: BP 155/89
[2016-12-26] MEDS: NICOTINE 7 MG/24 HR PATCH.TD24 TD SCH (21:59)
[2016-12-26] MEDS: ATORVASTATIN 20 MG TABLET PO SCH (22:01)
[2016-12-26] MEDS: DAPTOMYCIN 600 MG in SODIUM CHLORIDE 0.9% 100 ML IVPB SCH (22:05)
[2016-12-27] MEDS: HEPARIN 5,000 UNITS/ML, 1ML SQ SCH ×3 (05:24→19:39)
[2016-12-27 05:37] VITALS: BP 127/74
[2016-12-27 06:08] LABS: HEMATOCRIT 25.1 % (39.2-51.8); HEMOGLOBIN 8.2 g/dL (13.7-18.0); WHITE BLOOD COUNT 9.3 x10^3/uL (3.4-10)
[2016-12-27 06:19] LABS: BLOOD UREA NITROGEN 48 mg/dL (7-18)
[2016-12-27] MEDS: INSULIN ASPART 100 UNITS/ML, PEN SQ-INSULIN SCH ×4 (07:00→21:50)
[2016-12-27] MEDS: ASPIRIN 81 MG TABLET EC PO SCH (10:04)
[2016-12-27] MEDS: GABAPENTIN 300 MG CAPSULE PO SCH ×3 (10:04→21:37)
[2016-12-27] MEDS: DOCUSATE 100 MG CAPSULE PO SCH ×2 (10:04→21:37)
[2016-12-27] MEDS: NICOTINE 21 MG/24 HR PATCH.TD24 TD SCH (13:02)
[2016-12-27 13:07] VITALS: BP 148/82
[2016-12-27] MEDS: INSULIN DETEMIR 100 UNITS/ML, PEN SQ-INSULIN SCH ×2 (13:16→21:54)
[2016-12-27] MEDS: ERTAPENEM 0.5 GM in SODIUM CHLORIDE 0.9% 50 ML IV SCH (15:51)
[2016-12-27 19:50] VITALS: BP 145/72
[2016-12-27] MEDS: ATORVASTATIN 20 MG TABLET PO SCH (21:36)
[2016-12-27] MEDS: NICOTINE 7 MG/24 HR PATCH.TD24 TD SCH (21:43)
[2016-12-28] MEDS: HEPARIN 5,000 UNITS/ML, 1ML SQ SCH ×3 (04:57→21:52)
[2016-12-28 05:43] VITALS: BP 122/86
[2016-12-28 06:24] LABS: HEMATOCRIT 24.9 % (39.2-51.8); WHITE BLOOD COUNT 8.6 x10^3/uL (3.4-10)
[2016-12-28 06:29] LABS: BLOOD UREA NITROGEN 52 mg/dL (7-18)
[2016-12-28 08:15] VITALS: BP 136/83
[2016-12-28] MEDS: DOCUSATE 100 MG CAPSULE PO SCH ×2 (09:00→21:00)
[2016-12-28] MEDS: ASPIRIN 81 MG TABLET EC PO SCH (09:00)
[2016-12-28] MEDS: INSULIN ASPART 100 UNITS/ML, PEN SQ-INSULIN SCH ×4 (10:01→23:58)
[2016-12-28] MEDS: GABAPENTIN 300 MG CAPSULE PO SCH ×3 (10:01→21:51)
[2016-12-28] MEDS: NICOTINE 21 MG/24 HR PATCH.TD24 TD SCH (12:35)
[2016-12-28] MEDS: INSULIN DETEMIR 100 UNITS/ML, PEN SQ-INSULIN SCH ×2 (12:36→22:04)
[2016-12-28 15:44] VITALS: BP 160/88
[2016-12-28] MEDS: ERTAPENEM 0.5 GM in SODIUM CHLORIDE 0.9% 50 ML IV SCH (16:01)
[2016-12-28 20:00] VITALS: BP 160/80
[2016-12-28] MEDS: DAPTOMYCIN 600 MG in SODIUM CHLORIDE 0.9% 100 ML IVPB SCH (21:48)
[2016-12-28] MEDS: ATORVASTATIN 20 MG TABLET PO SCH (21:50)
[2016-12-28] MEDS: NICOTINE 7 MG/24 HR PATCH.TD24 TD SCH (21:51)
[2016-12-29 01:12] VITALS: BP 147/80
[2016-12-29] MEDS: HEPARIN 5,000 UNITS/ML, 1ML SQ SCH ×3 (05:44→20:21)
[2016-12-29] MEDS: INSULIN ASPART 100 UNITS/ML, PEN SQ-INSULIN SCH ×4 (05:57→20:22)
[2016-12-29 06:17] LABS: HEMATOCRIT 26.5 % (39.2-51.8); HEMOGLOBIN 8.6 g/dL (13.7-18.0); WHITE BLOOD COUNT 9.2 x10^3/uL (3.4-10)
[2016-12-29 06:26] LABS: BLOOD UREA NITROGEN 54 mg/dL (7-18)
[2016-12-29] MEDS: DOCUSATE 100 MG CAPSULE PO SCH (08:59)
[2016-12-29 09:02] VITALS: BP 135/81
[2016-12-29] MEDS: GABAPENTIN 300 MG CAPSULE PO SCH ×3 (09:17→19:53)
[2016-12-29] MEDS: ASPIRIN 81 MG TABLET EC PO SCH (09:17)
[2016-12-29] MEDS ORDERED: DIPHENOXYLATE/ATROPINE TABLET PO PRN (10:30)
[2016-12-29] MEDS: NICOTINE 21 MG/24 HR PATCH.TD24 TD SCH (11:42)
[2016-12-29] MEDS: INSULIN DETEMIR 100 UNITS/ML, PEN SQ-INSULIN SCH ×2 (11:45→22:47)
[2016-12-29] MEDS ORDERED: DIPHENOXYLATE/ATROPINE TABLET PO SCH (12:30)
[2016-12-29] MEDS: HYDROmorphone 2MG TABLET PO PRN ×2 (14:27→20:22)
[2016-12-29] MEDS: ERTAPENEM 0.5 GM in SODIUM CHLORIDE 0.9% 50 ML IV SCH (15:19)
[2016-12-29 15:31] VITALS: BP 159/91
[2016-12-29 18:46] VITALS: BP 156/92
[2016-12-29] MEDS: DIPHENOXYLATE/ATROPINE TABLET PO SCH (19:53)
[2016-12-29] MEDS: NICOTINE 7 MG/24 HR PATCH.TD24 TD SCH (19:54)
[2016-12-29] MEDS: ATORVASTATIN 20 MG TABLET PO SCH (19:54)
[2016-12-30] MEDS: HYDROmorphone 2MG TABLET PO PRN ×4 (00:42→21:50)
[2016-12-30 03:16] VITALS: BP 149/80
[2016-12-30 03:59] LABS: HEMATOCRIT 25.5 % (39.2-51.8); HEMOGLOBIN 8.1 g/dL (13.7-18.0); WHITE BLOOD COUNT 8.5 x10^3/uL (3.4-10)
[2016-12-30] MEDS: DIPHENOXYLATE/ATROPINE TABLET PO SCH ×5 (04:00→20:14)
[2016-12-30 04:11] LABS: BLOOD UREA NITROGEN 55 mg/dL (7-18)
[2016-12-30] MEDS: INSULIN ASPART 100 UNITS/ML, PEN SQ-INSULIN SCH ×4 (07:00→21:00)
[2016-12-30] MEDS: HEPARIN 5,000 UNITS/ML, 1ML SQ SCH ×3 (07:38→21:50)
[2016-12-30] MEDS: ASPIRIN 81 MG TABLET EC PO SCH (08:39)
[2016-12-30] MEDS: GABAPENTIN 300 MG CAPSULE PO SCH ×3 (08:39→20:14)
[2016-12-30 09:00] VITALS: BP 142/85
[2016-12-30] MEDS: NICOTINE 21 MG/24 HR PATCH.TD24 TD SCH (12:02)
[2016-12-30] MEDS: INSULIN DETEMIR 100 UNITS/ML, PEN SQ-INSULIN SCH ×2 (12:02→21:51)
[2016-12-30] MEDS: ERTAPENEM 0.5 GM in SODIUM CHLORIDE 0.9% 50 ML IV SCH (15:33)
[2016-12-30 19:46] VITALS: BP 150/92
[2016-12-30] MEDS: ATORVASTATIN 20 MG TABLET PO SCH (20:15)
[2016-12-30] MEDS: NICOTINE 7 MG/24 HR PATCH.TD24 TD SCH (20:17)
[2016-12-30] MEDS: DAPTOMYCIN 600 MG in SODIUM CHLORIDE 0.9% 100 ML IVPB SCH (21:50)
[2016-12-31] MEDS: HYDROmorphone 2MG TABLET PO PRN ×3 (01:38→19:43)
[2016-12-31 01:54] LABS: BLOOD UREA NITROGEN 50 mg/dL (7-18)
[2016-12-31 02:08] VITALS: BP 155/90
[2016-12-31] MEDS: HEPARIN 5,000 UNITS/ML, 1ML SQ SCH ×3 (06:31→21:23)
[2016-12-31] MEDS: DIPHENOXYLATE/ATROPINE TABLET PO SCH ×5 (06:31→19:52)
[2016-12-31] MEDS: INSULIN ASPART 100 UNITS/ML, PEN SQ-INSULIN SCH ×4 (06:37→19:53)
[2016-12-31 06:51] VITALS: BP 117/64
[2016-12-31] MEDS: ASPIRIN 81 MG TABLET EC PO SCH (08:28)
[2016-12-31] MEDS: GABAPENTIN 300 MG CAPSULE PO SCH ×3 (08:28→19:51)
[2016-12-31] MEDS: INSULIN DETEMIR 100 UNITS/ML, PEN SQ-INSULIN SCH ×2 (11:48→21:23)
[2016-12-31] MEDS: NICOTINE 21 MG/24 HR PATCH.TD24 TD SCH (12:00)
[2016-12-31 13:34] VITALS: BP 160/88
[2016-12-31] MEDS: CALCIUM ACETATE 667 MG CAPSULE PO SCH ×2 (16:24→19:51)
[2016-12-31] MEDS: ERTAPENEM 0.5 GM in SODIUM CHLORIDE 0.9% 50 ML IV SCH (16:26)
[2016-12-31] MEDS: ATORVASTATIN 20 MG TABLET PO SCH (19:51)
[2016-12-31] MEDS: NICOTINE 7 MG/24 HR PATCH.TD24 TD SCH (19:54)
[2016-12-31 20:01] VITALS: BP 155/89
[2017-01-01 05:52] LABS: HEMATOCRIT 25.4 % (39.2-51.8); HEMOGLOBIN 8.3 g/dL (13.7-18.0); WHITE BLOOD COUNT 8.2 x10^3/uL (3.4-10)
[2017-01-01] MEDS: DIPHENOXYLATE/ATROPINE TABLET PO SCH ×4 (06:00→21:13)
[2017-01-01] MEDS: HEPARIN 5,000 UNITS/ML, 1ML SQ SCH ×3 (06:02→22:47)
[2017-01-01 06:14] LABS: ASPARTATE AMINO TRANSFERASE 55 U/L (15-37); BLOOD UREA NITROGEN 44 mg/dL (7-18)
[2017-01-01] MEDS: INSULIN ASPART 100 UNITS/ML, PEN SQ-INSULIN SCH ×4 (06:40→21:12)
[2017-01-01] MEDS ORDERED: DEXTROSE 50%, 50ML SYRINGE IVPush STA (06:43)
[2017-01-01] MEDS: D5%-0.9% NACL 1,000 ML IV SCH (06:57)
[2017-01-01 07:51] VITALS: BP 168/84
[2017-01-01] MEDS: CALCIUM ACETATE 667 MG CAPSULE PO SCH ×3 (08:51→21:13)
[2017-01-01] MEDS: GABAPENTIN 300 MG CAPSULE PO SCH ×3 (08:51→21:13)
[2017-01-01] MEDS: ASPIRIN 81 MG TABLET EC PO SCH (08:51)
[2017-01-01] MEDS ORDERED: DEXTROSE 50%, 50ML SYRINGE ONE (09:52)
[2017-01-01] MEDS ORDERED: DEXTROSE 50%, 50ML SYRINGE IVPush ONE (10:00)
[2017-01-01] MEDS ORDERED: ROPIvacaine/PF 0.5%, 20 ML ONE (10:03)
[2017-01-01] MEDS ORDERED: FENTANYL PF 100 MCG/2ML ONE ×2 (10:04)
[2017-01-01] MEDS ORDERED: MIDAZOLAM 1 MG/ML, 2ML ONE (10:04)
[2017-01-01] MEDS: ERTAPENEM 0.5 GM in SODIUM CHLORIDE 0.9% 50 ML IV SCH (10:05)
[2017-01-01] MEDS ORDERED: PROPOFOL 10 MG/ML, 20ML ONE (10:24)
[2017-01-01] MEDS ORDERED: SUCCINYLCHOLINE 20 MG/ML, 10ML ONE (10:24)
[2017-01-01] MEDS ORDERED: ONDANSETRON 2MG/ML, 2ML ONE (10:24)
[2017-01-01] MEDS ORDERED: EPHEDRINE 50 MG/ML, 1ML ONE (10:24)
[2017-01-01] MEDS: INSULIN DETEMIR 100 UNITS/ML, PEN SQ-INSULIN SCH ×2 (10:44→22:47)
[2017-01-01] MEDS: NICOTINE 21 MG/24 HR PATCH.TD24 TD SCH (10:45)
[2017-01-01] MEDS ORDERED: ONDANSETRON 2MG/ML, 2ML IVPush PRN (11:30)
[2017-01-01] MEDS ORDERED: hydrALAzine 20 MG/ML, 1ML IV PRN (11:30)
[2017-01-01] MEDS ORDERED: MIDAZOLAM 1 MG/ML, 2ML IV PRN (11:30)
[2017-01-01] MEDS ORDERED: PROMETHAZINE 25 MG/ML, 1ML IV PRN (11:30)
[2017-01-01] MEDS ORDERED: LABETALOL 5MG/ML, 20ML IV PRN (11:30)
[2017-01-01] MEDS ORDERED: MEPERIDINE/PF 25MG/0.5ML IVPush PRN (11:30)
[2017-01-01] MEDS ORDERED: HYDROcodone/APAP 7.5-325MG/15ML UDC PO PRN (11:30)
[2017-01-01] MEDS ORDERED: OXYcodone 5 MG/5 ML ORAL.SOL UDC PO PRN (11:30)
[2017-01-01] MEDS ORDERED: ACETAMINOPHEN 325 MG TABLET PO PRN (11:30)
[2017-01-01] MEDS ORDERED: EPHEDRINE 50 MG/ML, 1ML IVPush PRN (11:30)
[2017-01-01] MEDS ORDERED: FENTANYL PF 100 MCG/2ML IV PRN (11:30)
[2017-01-01] MEDS ORDERED: HYDROmorphone 1 MG/ML, 1ML ONE (12:37)
[2017-01-01] MEDS: HYDROmorphone 1 MG/ML, 1ML IV PRN ×2 (12:40→12:50)
[2017-01-01 13:19] VITALS: BP 181/99
[2017-01-01 15:05] VITALS: BP 162/88
[2017-01-01] MEDS: OXYcodone IR 5MG TABLET PO PRN ×2 (19:41→21:19)
[2017-01-01 20:38] VITALS: BP 165/78
[2017-01-01] MEDS: NICOTINE 7 MG/24 HR PATCH.TD24 TD SCH (21:00)
[2017-01-01] MEDS: ATORVASTATIN 20 MG TABLET PO SCH (21:13)
[2017-01-01] MEDS: DAPTOMYCIN 600 MG in SODIUM CHLORIDE 0.9% 100 ML IVPB SCH (23:00)
[2017-01-01] MEDS: HYDROmorphone 2MG TABLET PO PRN (23:00)
[2017-01-02] VITALS (7 sets, daily range): BP systolic 120–162; BP diastolic 69–89
[2017-01-02] MEDS ORDERED: KETOROLAC 30 MG/1 ML IVPush SCH (01:00)
[2017-01-02] MEDS: OXYcodone IR 5MG TABLET PO PRN (01:02)
[2017-01-02 05:35] LABS: BLOOD UREA NITROGEN 42 mg/dL (7-18)
[2017-01-02 05:39] LABS: HEMOGLOBIN 7.1 g/dL (13.7-18.0); WHITE BLOOD COUNT 9.1 x10^3/uL (3.4-10)
[2017-01-02 05:57] LABS: HEMATOCRIT 21.8 % (39.2-51.8)
[2017-01-02] MEDS: HEPARIN 5,000 UNITS/ML, 1ML SQ SCH ×3 (07:00→23:29)
[2017-01-02] MEDS ORDERED: KETOROLAC 30 MG/1 ML IVPush PRN (07:00)
[2017-01-02] MEDS: INSULIN ASPART 100 UNITS/ML, PEN SQ-INSULIN SCH ×4 (07:08→20:40)
[2017-01-02] MEDS: DIPHENOXYLATE/ATROPINE TABLET PO SCH ×4 (07:08→21:44)
[2017-01-02] MEDS ORDERED: HYDROmorphone 2MG TABLET ONE ×4 (08:00→21:42)
[2017-01-02] MEDS: HYDROmorphone 4MG TABLET PO PRN ×4 (08:03→21:44)
[2017-01-02] MEDS: morphine SULFATE 10 MG/ML, 1ML IVPush PRN ×4 (09:06→23:29)
[2017-01-02] MEDS: ERGOCALCIFEROL 50,000 UNIT CAPSULE PO SCH (09:29)
[2017-01-02] MEDS: GABAPENTIN 300 MG CAPSULE PO SCH ×3 (09:29→21:44)
[2017-01-02] MEDS: CALCIUM ACETATE 667 MG CAPSULE PO SCH (09:29)
[2017-01-02] MEDS: D5%-0.9% NACL 1,000 ML IV SCH (09:29)
[2017-01-02] MEDS: ASPIRIN 81 MG TABLET EC PO SCH (09:29)
[2017-01-02] MEDS: NICOTINE 21 MG/24 HR PATCH.TD24 TD SCH (11:03)
[2017-01-02] MEDS: INSULIN DETEMIR 100 UNITS/ML, PEN SQ-INSULIN SCH ×2 (11:03→20:40)
[2017-01-02] MEDS ORDERED: FUROSEMIDE 20 MG/2 ML IV ONE (11:30)
[2017-01-02] MEDS ORDERED: SODIUM POLYSTYRENE SULFONATE ORAL SUSP PO ONE (11:30)
[2017-01-02] MEDS: SODIUM BICARBONATE 650 MG TABLET PO SCH ×2 (13:10→21:44)
[2017-01-02 15:21] LABS: PATH.CAST-FLAG NOT PRESENT; SPERM-FLAG NOT PRESENT; SRC-FLAG NOT PRESENT; XTAL-FLAG NOT PRESENT; YLC-FLAG NOT PRESENT
[2017-01-02] MEDS: ERTAPENEM 0.5 GM in SODIUM CHLORIDE 0.9% 50 ML IV SCH (15:53)
[2017-01-02] MEDS: NICOTINE 7 MG/24 HR PATCH.TD24 TD SCH (21:00)
[2017-01-02] MEDS: ATORVASTATIN 20 MG TABLET PO SCH (21:44)
[2017-01-03 02:01] VITALS: BP 130/83
[2017-01-03] MEDS: HYDROmorphone 2MG TABLET PO PRN ×2 (02:03→06:00)
[2017-01-03] MEDS: morphine SULFATE 10 MG/ML, 1ML IVPush PRN ×2 (04:39→19:59)
[2017-01-03 05:22] LABS: HEMATOCRIT 27.5 % (39.2-51.8); HEMOGLOBIN 9.1 g/dL (13.7-18.0); WHITE BLOOD COUNT 11.6 x10^3/uL (3.4-10)
[2017-01-03 05:25] LABS: BLOOD UREA NITROGEN 41 mg/dL (7-18)
[2017-01-03 05:28] LABS: ASPARTATE AMINO TRANSFERASE 64 U/L (15-37)
[2017-01-03] MEDS: DIPHENOXYLATE/ATROPINE TABLET PO SCH ×4 (06:00→21:00)
[2017-01-03] MEDS: HEPARIN 5,000 UNITS/ML, 1ML SQ SCH ×2 (06:37→15:56)
[2017-01-03 07:46] VITALS: BP 146/85
[2017-01-03] MEDS: INSULIN ASPART 100 UNITS/ML, PEN SQ-INSULIN SCH ×4 (08:29→21:04)
[2017-01-03] MEDS: GABAPENTIN 300 MG CAPSULE PO SCH ×3 (08:38→21:07)
[2017-01-03] MEDS: SODIUM BICARBONATE 650 MG TABLET PO SCH ×2 (08:38→21:04)
[2017-01-03] MEDS: OXYcodone IR 5MG TABLET PO PRN (08:38)
[2017-01-03] MEDS: ASPIRIN 81 MG TABLET EC PO SCH (08:38)
[2017-01-03] MEDS: INSULIN DETEMIR 100 UNITS/ML, PEN SQ-INSULIN SCH ×2 (10:00→22:31)
[2017-01-03] MEDS: NICOTINE 21 MG/24 HR PATCH.TD24 TD SCH (12:00)
[2017-01-03 14:42] VITALS: BP 157/82
[2017-01-03] MEDS: ERTAPENEM 0.5 GM in SODIUM CHLORIDE 0.9% 50 ML IV SCH (15:56)
[2017-01-03 20:59] VITALS: BP 135/70
[2017-01-03] MEDS: NICOTINE 7 MG/24 HR PATCH.TD24 TD SCH (21:00)
[2017-01-03] MEDS: ATORVASTATIN 20 MG TABLET PO SCH (21:04)
[2017-01-03] MEDS: DAPTOMYCIN 600 MG in SODIUM CHLORIDE 0.9% 100 ML IVPB SCH (22:30)
[2017-01-04] MEDS: morphine SULFATE 10 MG/ML, 1ML IVPush PRN (00:21)
[2017-01-04] MEDS: HEPARIN 5,000 UNITS/ML, 1ML SQ SCH ×3 (00:23→16:00)
[2017-01-04] MEDS: HYDROmorphone 2MG TABLET PO PRN (01:30)
[2017-01-04 01:43] VITALS: BP 155/82
[2017-01-04 05:02] LABS: HEMATOCRIT 24.2 % (39.2-51.8); HEMOGLOBIN 7.9 g/dL (13.7-18.0); WHITE BLOOD COUNT 11.3 x10^3/uL (3.4-10)
[2017-01-04 05:33] LABS: BLOOD UREA NITROGEN 40 mg/dL (7-18)
[2017-01-04] MEDS: DIPHENOXYLATE/ATROPINE TABLET PO SCH ×3 (05:55→16:00)
[2017-01-04 06:45] VITALS: BP 123/73
[2017-01-04] MEDS: INSULIN ASPART 100 UNITS/ML, PEN SQ-INSULIN SCH ×3 (07:28→16:39)
[2017-01-04] MEDS: SODIUM BICARBONATE 650 MG TABLET PO SCH (09:31)
[2017-01-04] MEDS: GABAPENTIN 300 MG CAPSULE PO SCH ×2 (09:31→16:41)
[2017-01-04] MEDS: OXYcodone IR 5MG TABLET PO PRN ×2 (09:31→16:39)
[2017-01-04] MEDS: ASPIRIN 81 MG TABLET EC PO SCH (09:35)
[2017-01-04] MEDS: INSULIN DETEMIR 100 UNITS/ML, PEN SQ-INSULIN SCH (09:35)
[2017-01-04] MEDS: NICOTINE 21 MG/24 HR PATCH.TD24 TD SCH (10:57)
[2017-01-04 14:00] VITALS: BP 152/91
[2017-01-04] MEDS ORDERED: ERGO500017 PO (14:24)
[2017-01-04] MEDS ORDERED: SODI650T PO (14:24)
[2017-01-04] MEDS: ERTAPENEM 0.5 GM in SODIUM CHLORIDE 0.9% 50 ML IV SCH (15:00)
[2017-01-04 16:32] VITALS: BP 171/83
[2017-01-04 17:17] VITALS: BP 179/101
== END 2017-01-04 17:45 | DRG 853 ==
LOC: ED 16:37 → EDIP 16:38 → ED 17:04 → 3NE 17:42 → 4EST 12-14 19:56 → 4WST 12-20 22:24 → 4NOR 12-28 15:18
PROVIDERS: ADMIT Internal Medicine; ATTEND Family Medicine
PROC: 0JBQ0ZZ Excision of Right Foot Subcutaneous Tissue and Fascia, Open Approach (ICD-10-PCS; 2016-12-13)
PROC: 02HV33Z Insertion of Infusion Device into Superior Vena Cava, Percutaneous Approach (ICD-10-PCS; 2016-12-14)
PROC: B518YZA Fluoroscopy of Superior Vena Cava using Other Contrast, Guidance (ICD-10-PCS; 2016-12-14)
PROC: 5A1D60Z (ICD-10-PCS; 2016-12-14)
PROC: 0Y6H0Z1 Detachment at Right Lower Leg, High, Open Approach (ICD-10-PCS; 2017-01-01)
PROC: 0JBR0ZZ Excision of Left Foot Subcutaneous Tissue and Fascia, Open Approach (ICD-10-PCS; 2017-01-01)
PROC: 0T9B70Z Drainage of Bladder with Drainage Device, Via Natural or Artificial Opening (ICD-10-PCS; principal; 2017-01-02)
PROC: 30233N1 Transfusion of Nonautologous Red Blood Cells into Peripheral Vein, Percutaneous Approach (ICD-10-PCS; 2017-01-02)
DX: A40.1 Sepsis due to streptococcus, group B (principal); N17.0 Acute kidney failure with tubular necrosis; R65.20 Severe sepsis without septic shock; E43 Unspecified severe protein-calorie malnutrition; G93.40 Encephalopathy, unspecified; I13.2 Hypertensive heart and chronic kidney disease with heart failure and with stage 5 chronic kidney disease, or end stage renal disease; N18.6 End stage renal disease; L03.115 Cellulitis of right lower limb; E86.0 Dehydration; M87.88 Other osteonecrosis, other site; M86.171 Other acute osteomyelitis, right ankle and foot; I50.32 Chronic diastolic (congestive) heart failure; E87.1 Hypo-osmolality and hyponatremia; L02.611 Cutaneous abscess of right foot; N13.9 Obstructive and reflux uropathy, unspecified; W01.0XXA Fall on same level from slipping, tripping and stumbling without subsequent striking against object, initial encounter; E11.40 Type 2 diabetes mellitus with diabetic neuropathy, unspecified; E11.65 Type 2 diabetes mellitus with hyperglycemia; E78.5 Hyperlipidemia, unspecified; G47.33 Obstructive sleep apnea (adult) (pediatric); K21.9 Gastro-esophageal reflux disease without esophagitis; I25.10 Atherosclerotic heart disease of native coronary artery without angina pectoris; J44.9 Chronic obstructive pulmonary disease, unspecified; I25.2 Old myocardial infarction; D63.8 Anemia in other chronic diseases classified elsewhere; E11.69 Type 2 diabetes mellitus with other specified complication; E11.21 Type 2 diabetes mellitus with diabetic nephropathy; D75.89 Other specified diseases of blood and blood-forming organs; E55.9 Vitamin D deficiency, unspecified; E87.5 Hyperkalemia; F17.210 Nicotine dependence, cigarettes, uncomplicated; F41.9 Anxiety disorder, unspecified; L97.529 Non-pressure chronic ulcer of other part of left foot with unspecified severity; Z80.0 Family history of malignant neoplasm of digestive organs; Z83.3 Family history of diabetes mellitus; Z88.2 Allergy status to sulfonamides; Z90.49 Acquired absence of other specified parts of digestive tract; Z91.14 Patient's other noncompliance with medication regimen; Z99.2 Dependence on renal dialysis; Z99.81 Dependence on supplemental oxygen; Y93.89 Activity, other specified; Y92.89 Other specified places as the place of occurrence of the external cause; Y99.8 Other external cause status; Z68.27 Body mass index [BMI] 27.0-27.9, adult
CPT/HCPCS: 36415; 36556; 70553; 71020; 72141; 74000; 76770; 77001; 78452; 80048; 80053; 80061; 80069; 80202; 81001; 82010; 82306; 82390; 82436; 82525; 82550; 82570; 82607; 82728; 82746; 82803; 82947; 82962; 83036; 83540; 83550; 83605; 83690; 83735; 83970; 84100; 84133; 84155; 84156; 84165; 84300; 84439; 84443; 84484; 84550; 85025; 85651; 86140; 86480; 86704; 86706; 86850; 86900; 86923; 87040; 87070; 87075; 87077; 87086; 87102; 87147; 87176; 87181; 87186; 87205; 87324; 87340; 88305; 88307; 88311; 93005; 93017; 93306; 93922; 96361; 96374; 96375; A9585; C1894; J0878; J1170; J1335; J1644; J1815; J1940; J2250; J2405; J2704; J2785; J2795; J3010; J3370; J7042; P9047; A9502; C1751; C9898; J0330; J1642; J2060; J2270; J2370; J7030; J7050; P9016; S0028

== ENCOUNTER 2017-02-02 00:43 | Inpatient (IN) | payer MEDICAID ==
[~2017-02-02] VITALS: Ht 185.4 cm; Wt 84.9 kg
[~2017-02-02 00:43] MED LIST changes: +ERGO500017 PO; +NICO-486 TD; -NICO1PAT13 TD; +SODI650T PO
[2017-02-02] MEDS ORDERED: SODIUM CHLORIDE FLUSH 10ML SYR IVF ONE (01:00)
[2017-02-02] MEDS ORDERED: SODIUM CHLORIDE 0.9% 1,000ML IVBOLUS ONE (01:00)
[2017-02-02] MEDS ORDERED: MORPHINE SULFATE 4 MG/ML, 1ML IVPush PRN (01:00)
[2017-02-02] MEDS ORDERED: ONDANSETRON 2MG/ML, 2ML IVPush ONE (01:00)
[2017-02-02] MEDS ORDERED: PROMETHAZINE 25 MG/ML, 1ML IM ONE (01:00)
[2017-02-02] MEDS ORDERED: PROMETHAZINE 25 MG/ML, 1ML ONE (01:07)
[2017-02-02] MEDS ORDERED: MORPHINE SULFATE 4 MG/ML, 1ML ONE (01:07)
[2017-02-02] MEDS ORDERED: ONDANSETRON 2MG/ML, 2ML ONE (01:08)
[2017-02-02 01:14] LABS: HEMATOCRIT 33.5 % (39.2-51.8); HEMOGLOBIN 10.8 g/dL (13.7-18.0); WHITE BLOOD COUNT 9.9 x10^3/uL (3.4-10)
[2017-02-02 01:20] LABS: ASPARTATE AMINO TRANSFERASE 12 U/L (15-37); BLOOD UREA NITROGEN 21 mg/dL (7-18)
[2017-02-02 01:26] LABS: IS PT STATUS REG ER OR PRE ER? YES
[2017-02-02] MEDS ORDERED: ASPIRIN 81 MG TABLET CHEW PO ONE ×2 (01:30→02:00)
[2017-02-02] MEDS ORDERED: NITROGLYCERIN SINGLE TAB 0.4 MG SL PRN (01:30)
[2017-02-02] MEDS ORDERED: ATORVASTATIN 40 MG TABLET PO ONE (01:48)
[2017-02-02] MEDS ORDERED: NITROGLYCERIN 0.4 MG BOTTLE (25 TABS) SL PRN (02:00)
[2017-02-02] MEDS ORDERED: METOPROLOL TARTRATE 50 MG TABLET PO ONE (02:00)
[2017-02-02] MEDS ORDERED: NITROGLYCERIN 0.4 MG/SPRAY SL PRN (02:00)
[2017-02-02] MEDS ORDERED: morphine SULFATE 10 MG/ML, 1ML IVPush PRN (02:00)
[2017-02-02] MEDS ORDERED: HEPARIN 5,000 UNITS/ML, 1ML IV ONE (02:00)
[2017-02-02] MEDS ORDERED: hydrALAzine 20 MG/ML, 1ML IVPush PRN (02:00)
[2017-02-02] MEDS ORDERED: ONDANSETRON 2MG/ML, 2ML IVPush PRN (02:00)
[2017-02-02] MEDS ORDERED: HEPARIN 5,000 UNITS/ML, 1ML ONE (02:12)
[2017-02-02] MEDS ORDERED: HEPARIN 25,000 UNITS/500ML PMX 500 ML ONE (02:12)
[2017-02-02] MEDS: HEPARIN 25,000 UNITS/500ML PMX 500 ML IV PRN ×2 (02:21→20:18)
[2017-02-02] MEDS ORDERED: OXYC10TA6 PO (03:07)
[2017-02-02] MEDS ORDERED: INSU100C5 SQ-INSULIN (03:08)
[2017-02-02] MEDS ORDERED: ASPIRIN 81 MG TABLET CHEW ONE (03:14)
[2017-02-02 03:42] VITALS: BP 168/92
[2017-02-02 03:49] VITALS: BP 168/92
[2017-02-02] MEDS: SODIUM CHLORIDE 0.9% 1,000 ML IV SCH ×2 (04:41→15:19)
[2017-02-02] MEDS: INSULIN ASPART 100 UNITS/ML, PEN SQ-INSULIN SCH ×6 (05:46→20:26)
[2017-02-02 07:44] LABS: IS PT STATUS REG ER OR PRE ER? NO
[2017-02-02 08:09] VITALS: BP 149/90
[2017-02-02] MEDS: PANTOPRAZOLE 40 MG IV IVPush SCH (08:43)
[2017-02-02] MEDS: SODIUM CHLORIDE FLUSH 10ML SYR IVF SCH ×4 (08:45→20:19)
[2017-02-02] MEDS: HEPARIN 5,000 UNITS/ML, 1ML IV PRN ×2 (09:53→17:26)
[2017-02-02 13:05] LABS: BLOOD UREA NITROGEN 20 mg/dL (7-18)
[2017-02-02 13:06] LABS: IS PT STATUS REG ER OR PRE ER? NO
[2017-02-02] MEDS: LISINOPRIL 5 MG TABLET PO SCH (13:07)
[2017-02-02] MEDS ORDERED: POLYETHYLENE GLYCOL 17 GM PACKET ONE (13:41)
[2017-02-02] MEDS: OXYcodone IR 5MG TABLET PO PRN (13:43)
[2017-02-02 13:58] VITALS: BP 142/85
[2017-02-02] MEDS: CARVEDILOL 6.25 MG TABLET PO SCH (18:21)
[2017-02-02 19:08] LABS: IS PT STATUS REG ER OR PRE ER? NO
[2017-02-02 20:32] VITALS: BP 117/72
[2017-02-02] MEDS ORDERED: ATORVASTATIN 20 MG TABLET PO SCH (21:00)
[2017-02-03 00:18] VITALS: BP 149/89
[2017-02-03] MEDS: HEPARIN 5,000 UNITS/ML, 1ML IV PRN (00:23)
[2017-02-03] MEDS: OXYcodone IR 5MG TABLET PO PRN ×2 (00:30→09:22)
[2017-02-03] MEDS ORDERED: OMNIPAQUE 350 MG/ML, 100ML BOTTLE ONE (03:02)
[2017-02-03] MEDS: SODIUM CHLORIDE 0.9% 1,000 ML IV SCH (05:33)
[2017-02-03] MEDS: CARVEDILOL 6.25 MG TABLET PO SCH (05:34)
[2017-02-03] MEDS ORDERED: ASPIRIN 325 MG TABLET EC PO SCH (06:00)
[2017-02-03 06:33] LABS: HEMATOCRIT 29.3 % (39.2-51.8); HEMOGLOBIN 9.6 g/dL (13.7-18.0); WHITE BLOOD COUNT 8.2 x10^3/uL (3.4-10)
[2017-02-03 06:38] LABS: ASPARTATE AMINO TRANSFERASE 9 U/L (15-37); BLOOD UREA NITROGEN 26 mg/dL (7-18)
[2017-02-03] MEDS: INSULIN ASPART 100 UNITS/ML, PEN SQ-INSULIN SCH ×2 (07:00→11:28)
[2017-02-03 07:04] VITALS: BP 147/88
[2017-02-03] MEDS: SODIUM CHLORIDE FLUSH 10ML SYR IVF SCH ×2 (07:58)
[2017-02-03] MEDS: LISINOPRIL 5 MG TABLET PO SCH (07:58)
[2017-02-03] MEDS: PANTOPRAZOLE 40 MG IV IVPush SCH (07:58)
[2017-02-03] MEDS ORDERED: POLYETHYLENE GLYCOL 17 GM PACKET PO SCH (09:00)
[2017-02-03] MEDS ORDERED: LISI5TAB7 PO (16:09)
[2017-02-03] MEDS ORDERED: CARV12.543 PO (16:09)
[2017-02-03] MEDS ORDERED: ASPI-621 PO (16:09)
[2017-02-03] MEDS ORDERED: NITR0.4T SL (16:09)
[2017-02-03] MEDS ORDERED: CARVEDILOL 12.5 MG TABLET PO SCH (18:00)
== END 2017-02-03 16:40 | disposition home or self-care (01) | DRG 391 ==
LOC: ED 01:54 → EDIP 02:00 → 5SO 03:29
PROVIDERS: ADMIT Internal Medicine; ATTEND Internal Medicine
DX: K59.00 Constipation, unspecified (principal); I21.3 ST elevation (STEMI) myocardial infarction of unspecified site; I31.3 Pericardial effusion (noninflammatory); L97.929 Non-pressure chronic ulcer of unspecified part of left lower leg with unspecified severity; I13.0 Hypertensive heart and chronic kidney disease with heart failure and stage 1 through stage 4 chronic kidney disease, or unspecified chronic kidney disease; I50.9 Heart failure, unspecified; E11.22 Type 2 diabetes mellitus with diabetic chronic kidney disease; E11.51 Type 2 diabetes mellitus with diabetic peripheral angiopathy without gangrene; D64.9 Anemia, unspecified; E11.622 Type 2 diabetes mellitus with other skin ulcer; E11.65 Type 2 diabetes mellitus with hyperglycemia; E78.5 Hyperlipidemia, unspecified; F17.200 Nicotine dependence, unspecified, uncomplicated; I25.10 Atherosclerotic heart disease of native coronary artery without angina pectoris; I25.2 Old myocardial infarction; J44.9 Chronic obstructive pulmonary disease, unspecified; N18.9 Chronic kidney disease, unspecified; Z79.4 Long term (current) use of insulin; Z79.82 Long term (current) use of aspirin; Z79.899 Other long term (current) drug therapy; Z88.9 Allergy status to unspecified drugs, medicaments and biological substances; Z89.511 Acquired absence of right leg below knee; Z90.49 Acquired absence of other specified parts of digestive tract; Z91.14 Patient's other noncompliance with medication regimen; Z90.89 Acquired absence of other organs; Z72.0 Tobacco use; Z71.6 Tobacco abuse counseling; Z88.0 Allergy status to penicillin; Z88.2 Allergy status to sulfonamides; Z88.8 Allergy status to other drugs, medicaments and biological substances; Z91.041 Radiographic dye allergy status
CPT/HCPCS: 36415; 71010; 74176; 80048; 80053; 81001; 82010; 82800; 82962; 83036; 83690; 84484; 85025; 85520; 93005; 93306; 96361; 96372; 96374; 96375; J1644; J1815; J2405; J2550; Q9967; C9113; J2270; J7030

== ENCOUNTER 2018-06-10 09:49 | Inpatient (IN) | payer MEDICAID ==
[~2018-06-10] VITALS: Ht 185.4 cm; Wt 87.1 kg
[~2018-06-10 09:49] MED LIST changes: +ASPI81TA45 PO; +ATOR20TA37 PO; -ATOR20TA9 PO; +CARV12.543 PO; +LISI5TAB7 PO; +METF500T17 PO; -METF500T4 PO; +NITR0.4T SL; +OXYC10TA6 PO; +TRAZ-137 PO; -TRAZ100T15 PO
--- NOTE | 2018-06-10 10:06 | NUR ---
BIB [facility] FROM HOME C/O DAYS OF INCREASING TESTICULAR SWELLING AND PAIN. PT VERBALIZED HE HAS NOT VOIDED IN 3 DAYS, NO BM FOR 1 WEEK. PT STATES SOB AND BI-LAT LE EDEMA IS CHRONIC. PT REFUSES TO REMOVE PAJAMA BOTTOMS AND REFUSES TO WEAR A GOWN. PT IS VERBALLY HOSITLE IN ANSWERING QUESTIONS STATES "YOU SHOULD HAVE ALL OF THIS IN MY RECORD" DR PHILLIPS AT BEDSIDE.
[2018-06-10] MEDS ORDERED: SODIUM CHLORIDE FLUSH 10ML SYR IVF ONE (10:30)
[2018-06-10 10:50] LABS: BASOPHILS # (AUTO) 0.04 x10^3/uL (0-0.1); BASOPHILS % (AUTO) 1 % (0-1); EOSINOPHILS # (AUTO) 0.34 x10^3/uL (0-0.4); EOSINOPHILS % (AUTO) 6 % (1-7); LYMPHOCYTES # (AUTO) 1.93 x10^3/uL (1-3.4); LYMPHOCYTES % (AUTO) 32 % (22-44); MD NO; MEAN CORPUSCULAR HEMOGLOBIN 27.3 pg (27.5-34.5); MEAN CORPUSCULAR HGB CONC 32.7 g/dL (33.2-36.2); MEAN CORPUSCULAR VOLUME 83.3 fL (81-97); MEAN PLATELET VOLUME 7.5 fL (7.4-10.4); MONOCYTES # (AUTO) 0.39 x10^3/uL (0.2-0.8); MONOCYTES % (AUTO) 6 % (2-9); NEUTROPHILS # (AUTO) 3.36 x10^3/uL (1.8-6.8); NEUTROPHILS % (AUTO) 55 % (42-75); PLATELET COUNT 481 x10^3/uL (130-400); RED BLOOD COUNT 3.31 x10^6/uL (4.38-5.82); RED CELL DISTRIBUTION WIDTH 16.8 % (9.4-14.8)
[2018-06-10 11:01] LABS: ALANINE AMINOTRANSFERASE 9 U/L (12-78); ALBUMIN 1.7 g/dL (3.4-5.0); ANION GAP 7 mmol/L (5-15); CALCIUM 7.6 mg/dL (8.5-10.1); CHLORIDE 115 mmol/L (98-107); CREATININE 2.69 mg/dL (0.7-1.3)
[2018-06-10 11:05] LABS: ALKALINE PHOSPHATASE 79 U/L (45-117); BILIRUBIN,TOTAL 0.2 mg/dL (0.2-1.0); TOTAL PROTEIN 5.3 g/dL (6.4-8.2)
[2018-06-10 11:07] LABS: TROPONIN I 0.232 ng/mL (0.000-0.045)
[2018-06-10] MEDS ORDERED: FUROSEMIDE 40 MG/4 ML ONE (12:19)
[2018-06-10] MEDS ORDERED: OXYcodone IR 5MG TABLET ONE (12:19)
[2018-06-10] MEDS ORDERED: ASPIRIN 81 MG TABLET CHEW ONE (12:19)
[2018-06-10] MEDS ORDERED: ASPIRIN 81 MG TABLET CHEW PO ONE (12:30)
[2018-06-10] MEDS ORDERED: OXYcodone IR 5MG TABLET PO ONE (12:30)
[2018-06-10] MEDS ORDERED: OXYcodone/APAP 10/325MG TABLET PO ONE (12:30)
[2018-06-10] MEDS ORDERED: FUROSEMIDE 40 MG/4 ML IVPush ONE (12:30)
--- NOTE | 2018-06-10 12:48 | NUR ---
PT RESTING WITH EYES CLOSED, ARROUSES TO VERBAL STIMULI. MED NOTED FOR PAIN 12/20. PT AWARE OF PLAN FOR HOSPITAL ADMIT. CALL LIGHT W/I REACH
[2018-06-10 13:59] VITALS: BP 139/77
[2018-06-10] MEDS ORDERED: DOCUSATE 100 MG CAPSULE PO PRN (14:00)
[2018-06-10] MEDS ORDERED: NITROGLYCERIN 0.4 MG/SPRAY SL PRN (14:00)
[2018-06-10] MEDS ORDERED: DEXTROSE 4 GM TAB.CHEW PO PRN (14:00)
[2018-06-10] MEDS ORDERED: ACETAMINOPHEN 325 MG TABLET PO PRN (14:00)
[2018-06-10] MEDS ORDERED: DEXTROSE 50%, 50ML SYRINGE IVPush PRN (14:00)
[2018-06-10] MEDS ORDERED: TEMPLATE NON-FORMULARY MED. (Oxycodone Hcl** 10 MG) PO PRN (14:00)
[2018-06-10] MEDS ORDERED: GUAIFENESIN/DM 200-20MG, 10ML UDC PO PRN (14:00)
[2018-06-10] MEDS ORDERED: POLYETHYLENE GLYCOL 17 GM PACKET PO PRN (14:00)
[2018-06-10] MEDS ORDERED: NITROGLYCERIN 0.4 MG BOTTLE (25 TABS) SL PRN (14:00)
[2018-06-10] MEDS ORDERED: GLUCAGON 1 MG IM PRN (14:00)
[2018-06-10 14:16] VITALS: BP 139/77
[2018-06-10] MEDS: HEPARIN 5,000 UNITS/ML, 1ML SQ SCH ×2 (15:18→22:33)
[2018-06-10] MEDS: NICOTINE 14MG/24 HR PATCH.TD24 TD SCH (15:20)
[2018-06-10] MEDS: GABAPENTIN 300 MG CAPSULE PO SCH ×2 (15:24→21:00)
[2018-06-10] MEDS: INSULIN LISPRO 100 UNITS/ML, PEN SQ-INSULIN SCH ×2 (15:28→22:32)
[2018-06-10] MEDS ORDERED: METO25TA35 PO (18:00)
[2018-06-10] MEDS ORDERED: ATOR10TA9 PO (18:00)
[2018-06-10] MEDS ORDERED: CYCL5TAB PO (18:00)
[2018-06-10] MEDS ORDERED: ASPI-650 PO (18:00)
[2018-06-10] MEDS ORDERED: INSU100I34 SQ-INSULIN (18:00)
[2018-06-10] MEDS ORDERED: FURO80TA3 PO (18:00)
[2018-06-10] MEDS ORDERED: METO5TAB2 PO (18:00)
[2018-06-10] MEDS ORDERED: LIDOCAINE GEL 2%, 5ML TP ONE (18:00)
[2018-06-10 18:44] VITALS: BP 151/94
[2018-06-10] MEDS: FUROSEMIDE 20 MG/2 ML IV SCH (18:46)
[2018-06-10] MEDS: CARVEDILOL 12.5 MG TABLET PO SCH (18:46)
[2018-06-10 19:30] LABS: MICROSCOPIC INDICATED
[2018-06-10 19:53] LABS: CULTURE INDICATED? NO
[2018-06-10] MEDS ORDERED: SODIUM CHLORIDE FLUSH 10ML SYR IVF SCH (21:00)
[2018-06-10] MEDS ORDERED: ATORVASTATIN 20 MG TABLET PO SCH (21:00)
[2018-06-10] MEDS: SODIUM CHLORIDE FLUSH 10ML SYR IVF SCH (21:20)
[2018-06-10] MEDS: INSULIN GLARGINE 100 UNITS/ML, PEN SQ-INSULIN SCH (21:25)
[2018-06-11 00:37] VITALS: BP 158/90
[2018-06-11] MEDS: OXYcodone IR 5MG TABLET PO PRN ×2 (02:54→08:46)
[2018-06-11] MEDS: CARVEDILOL 12.5 MG TABLET PO SCH ×2 (05:17→17:20)
[2018-06-11] MEDS: HEPARIN 5,000 UNITS/ML, 1ML SQ SCH ×3 (05:17→22:16)
[2018-06-11 05:41] LABS: ALBUMIN 1.6 g/dL (3.4-5.0); ANION GAP 6 mmol/L (5-15); CALCIUM 7.2 mg/dL (8.5-10.1); CHLORIDE 114 mmol/L (98-107)
[2018-06-11 05:45] LABS: ALANINE AMINOTRANSFERASE 10 U/L (12-78); ALKALINE PHOSPHATASE 38 U/L (45-117); BILIRUBIN,TOTAL 0.2 mg/dL (0.2-1.0); CHOL/HDL RATIO 3.8; CHOLESTEROL, TOTAL 178 mg/dL (140-239); CREATININE 3.05 mg/dL (0.7-1.3); HDL CHOL % 26 % (26-37); HDL CHOLESTEROL (DIRECT) 47 mg/dL (40-60); LDL CHOLESTEROL,CALCULATED 113 mg/dL (54-169); LDL/HDL RATIO 2.4 (0.5-3.0); TOTAL PROTEIN 4.8 g/dL (6.4-8.2); TRIGLYCERIDES 92 mg/dL (50-200); TROPONIN I 0.228 ng/mL (0.000-0.045); VLDL CHOLESTEROL 18 mg/dL (0-25)
[2018-06-11] MEDS: INSULIN LISPRO 100 UNITS/ML, PEN SQ-INSULIN SCH ×4 (07:00→21:00)
[2018-06-11] MEDS: FUROSEMIDE 20 MG/2 ML IV SCH ×2 (08:32→17:19)
[2018-06-11] MEDS: POTASSIUM CHLORIDE 20 MEQ TAB.ER.PRT PO SCH ×2 (08:35→09:00)
[2018-06-11] MEDS: LISINOPRIL 5 MG TABLET PO SCH (08:40)
[2018-06-11] MEDS: SODIUM CHLORIDE FLUSH 10ML SYR IVF SCH ×2 (08:40→22:18)
[2018-06-11] MEDS: SENNA/DOCUSATE TABLET PO SCH (08:41)
[2018-06-11] MEDS: GABAPENTIN 300 MG CAPSULE PO SCH ×2 (08:41→14:46)
[2018-06-11] MEDS: INSULIN GLARGINE 100 UNITS/ML, PEN SQ-INSULIN SCH (08:42)
[2018-06-11] MEDS ORDERED: ASPIRIN 81 MG TABLET EC PO SCH (09:00)
[2018-06-11 10:44] VITALS: BP 120/78
[2018-06-11] MEDS ORDERED: ONDA4TAB7 PO (12:56)
[2018-06-11] MEDS: NICOTINE 14MG/24 HR PATCH.TD24 TD SCH (14:35)
[2018-06-11] MEDS: ALBUMIN HUMAN 25% 50 ML IV SCH ×2 (14:37→22:17)
[2018-06-11] MEDS ORDERED: MAGNESIUM SULFATE PMX 2GM/50ML 50 ML IV ONE (15:00)
[2018-06-11 15:47] VITALS: BP 136/76
[2018-06-11] MEDS ORDERED: METOCLOPRAMIDE 10MG TABLET PO PRN (16:30)
[2018-06-11 17:20] VITALS: BP 125/78
[2018-06-11] MEDS: CYCLOBENZAPRINE 10 MG TABLET PO SCH ×2 (17:20→22:16)
[2018-06-11] MEDS: METOPROLOL TARTRATE 50 MG TABLET PO SCH (17:46)
[2018-06-11 19:28] VITALS: BP 118/71
[2018-06-11] MEDS ORDERED: INSULIN GLARGINE 100 UNITS/ML, PEN SQ-INSULIN SCH (21:00)
[2018-06-11] MEDS: METOLAZONE 2.5 MG TABLET PO SCH (22:15)
[2018-06-11] MEDS: ATORVASTATIN 10 MG TABLET PO SCH (22:16)
[2018-06-12] VITALS (11 sets, daily range): BP systolic 118–154; BP diastolic 72–89
[2018-06-12] MEDS: OXYcodone IR 5MG TABLET PO PRN ×3 (01:21→20:44)
[2018-06-12 05:25] LABS: ANION GAP 8 mmol/L (5-15); CALCIUM 7.3 mg/dL (8.5-10.1); CHLORIDE 114 mmol/L (98-107)
[2018-06-12 05:28] LABS: CREATININE 3.25 mg/dL (0.7-1.3)
[2018-06-12 05:30] LABS: BASOPHILS # (AUTO) 0.03 x10^3/uL (0-0.1); BASOPHILS % (AUTO) 1 % (0-1); EOSINOPHILS # (AUTO) 0.24 x10^3/uL (0-0.4); EOSINOPHILS % (AUTO) 4 % (1-7); LYMPHOCYTES # (AUTO) 2.06 x10^3/uL (1-3.4); LYMPHOCYTES % (AUTO) 31 % (22-44); MD NO; MEAN CORPUSCULAR HEMOGLOBIN 27.8 pg (27.5-34.5); MEAN CORPUSCULAR VOLUME 84.4 fL (81-97); MEAN PLATELET VOLUME 7.9 fL (7.4-10.4); MONOCYTES # (AUTO) 0.59 x10^3/uL (0.2-0.8); MONOCYTES % (AUTO) 9 % (2-9); NEUTROPHILS # (AUTO) 3.67 x10^3/uL (1.8-6.8); NEUTROPHILS % (AUTO) 56 % (42-75); PLATELET COUNT 344 x10^3/uL (130-400); RED CELL DISTRIBUTION WIDTH 17.3 % (9.4-14.8)
[2018-06-12] MEDS: ALBUMIN HUMAN 25% 50 ML IV SCH ×3 (06:20→23:30)
[2018-06-12] MEDS: HEPARIN 5,000 UNITS/ML, 1ML SQ SCH ×3 (06:20→22:18)
[2018-06-12] MEDS: ASPIRIN 325 MG TABLET EC PO SCH (06:20)
[2018-06-12] MEDS: INSULIN LISPRO 100 UNITS/ML, PEN SQ-INSULIN SCH ×4 (07:00→20:44)
[2018-06-12] MEDS: POTASSIUM CHLORIDE 20 MEQ TAB.ER.PRT PO SCH ×2 (08:00→10:03)
[2018-06-12] MEDS: FUROSEMIDE 20 MG/2 ML IV SCH ×2 (10:01→20:42)
[2018-06-12] MEDS: SODIUM CHLORIDE FLUSH 10ML SYR IVF SCH ×2 (10:04→20:45)
[2018-06-12] MEDS: METOLAZONE 2.5 MG TABLET PO SCH ×2 (10:04→20:43)
[2018-06-12] MEDS: METOPROLOL TARTRATE 50 MG TABLET PO SCH ×2 (10:04→20:42)
[2018-06-12] MEDS: SENNA/DOCUSATE TABLET PO SCH (10:05)
[2018-06-12] MEDS: LISINOPRIL 5 MG TABLET PO SCH (10:05)
[2018-06-12] MEDS: CYCLOBENZAPRINE 10 MG TABLET PO SCH ×3 (10:06→20:43)
[2018-06-12] MEDS: NICOTINE 14MG/24 HR PATCH.TD24 TD SCH (13:58)
[2018-06-12] MEDS ORDERED: ALBUTEROL/IPRATROPIUM 2.5MG/0.5MG, 3 ML NPPB PRN (16:30)
[2018-06-12] MEDS: ALBUTEROL/IPRATROPIUM 2.5MG/0.5MG, 3 ML NPPB SCH (19:58)
[2018-06-12] MEDS: INSULIN GLARGINE 100 UNITS/ML, PEN SQ-INSULIN SCH (20:42)
[2018-06-12] MEDS: ATORVASTATIN 10 MG TABLET PO SCH (20:44)
[2018-06-13 00:34] VITALS: BP 144/87
[2018-06-13] MEDS: ALBUMIN HUMAN 25% 50 ML IV SCH ×3 (03:32→19:50)
[2018-06-13] MEDS: OXYcodone IR 5MG TABLET PO PRN ×4 (04:01→18:23)
[2018-06-13] MEDS: ASPIRIN 325 MG TABLET EC PO SCH (06:10)
[2018-06-13] MEDS: HEPARIN 5,000 UNITS/ML, 1ML SQ SCH ×3 (06:10→22:43)
[2018-06-13 07:00] VITALS: BP 124/79
[2018-06-13 07:32] LABS: BASOPHILS # (AUTO) 0.03 x10^3/uL (0-0.1); BASOPHILS % (AUTO) 0 % (0-1); EOSINOPHILS % (AUTO) 3 % (1-7); LYMPHOCYTES # (AUTO) 1.88 x10^3/uL (1-3.4); LYMPHOCYTES % (AUTO) 26 % (22-44); MD NO; MEAN CORPUSCULAR HGB CONC 32.9 g/dL (33.2-36.2); MEAN CORPUSCULAR VOLUME 85.2 fL (81-97); MEAN PLATELET VOLUME 7.9 fL (7.4-10.4); MONOCYTES # (AUTO) 0.73 x10^3/uL (0.2-0.8); MONOCYTES % (AUTO) 10 % (2-9); NEUTROPHILS # (AUTO) 4.29 x10^3/uL (1.8-6.8); NEUTROPHILS % (AUTO) 60 % (42-75); PLATELET COUNT 318 x10^3/uL (130-400); RED CELL DISTRIBUTION WIDTH 16.8 % (9.4-14.8)
[2018-06-13 07:37] LABS: ANION GAP 7 mmol/L (5-15); CALCIUM 7.9 mg/dL (8.5-10.1); CHLORIDE 114 mmol/L (98-107); CREATININE 3.43 mg/dL (0.7-1.3)
[2018-06-13] MEDS: INSULIN LISPRO 100 UNITS/ML, PEN SQ-INSULIN SCH ×4 (07:55→21:00)
[2018-06-13] MEDS: POTASSIUM CHLORIDE 20 MEQ TAB.ER.PRT PO SCH (08:51)
[2018-06-13] MEDS: METOLAZONE 2.5 MG TABLET PO SCH ×2 (08:51→22:44)
[2018-06-13] MEDS: LISINOPRIL 5 MG TABLET PO SCH (08:51)
[2018-06-13] MEDS: SENNA/DOCUSATE TABLET PO SCH (08:51)
[2018-06-13] MEDS: CYCLOBENZAPRINE 10 MG TABLET PO SCH ×3 (08:51→22:44)
[2018-06-13] MEDS: METOPROLOL TARTRATE 50 MG TABLET PO SCH ×2 (08:52→22:44)
[2018-06-13] MEDS: SODIUM CHLORIDE FLUSH 10ML SYR IVF SCH ×2 (12:05→22:46)
[2018-06-13] MEDS: ALBUTEROL/IPRATROPIUM 2.5MG/0.5MG, 3 ML NPPB SCH ×2 (12:40→21:30)
[2018-06-13 13:00] VITALS: BP 139/79
[2018-06-13] MEDS: FUROSEMIDE 20 MG/2 ML IV SCH ×2 (13:19→20:42)
[2018-06-13] MEDS: NICOTINE 14MG/24 HR PATCH.TD24 TD SCH (15:37)
[2018-06-13 18:55] VITALS: BP 144/76
[2018-06-13] MEDS: INSULIN GLARGINE 100 UNITS/ML, PEN SQ-INSULIN SCH (22:43)
[2018-06-13] MEDS: ATORVASTATIN 10 MG TABLET PO SCH (22:43)
[2018-06-14 00:49] VITALS: BP 122/77
[2018-06-14] MEDS: ALBUMIN HUMAN 25% 50 ML IV SCH ×2 (04:08→11:48)
[2018-06-14] MEDS: HEPARIN 5,000 UNITS/ML, 1ML SQ SCH ×3 (05:17→22:06)
[2018-06-14] MEDS: ASPIRIN 325 MG TABLET EC PO SCH (05:17)
[2018-06-14 05:35] LABS: BASOPHILS # (AUTO) 0.05 x10^3/uL (0-0.1); BASOPHILS % (AUTO) 1 % (0-1); EOSINOPHILS # (AUTO) 0.12 x10^3/uL (0-0.4); EOSINOPHILS % (AUTO) 2 % (1-7); LYMPHOCYTES # (AUTO) 1.17 x10^3/uL (1-3.4); LYMPHOCYTES % (AUTO) 16 % (22-44); MD NO; MEAN CORPUSCULAR HEMOGLOBIN 27.5 pg (27.5-34.5); MEAN CORPUSCULAR HGB CONC 32.6 g/dL (33.2-36.2); MEAN CORPUSCULAR VOLUME 84.5 fL (81-97); MEAN PLATELET VOLUME 8.2 fL (7.4-10.4); MONOCYTES # (AUTO) 0.81 x10^3/uL (0.2-0.8); MONOCYTES % (AUTO) 11 % (2-9); NEUTROPHILS # (AUTO) 5.04 x10^3/uL (1.8-6.8); NEUTROPHILS % (AUTO) 70 % (42-75); PLATELET COUNT 278 x10^3/uL (130-400); RED BLOOD COUNT 2.82 x10^6/uL (4.38-5.82)
[2018-06-14 05:39] LABS: ANION GAP 9 mmol/L (5-15); CALCIUM 7.3 mg/dL (8.5-10.1); CHLORIDE 114 mmol/L (98-107)
[2018-06-14 05:40] LABS: CREATININE 3.31 mg/dL (0.7-1.3)
[2018-06-14] MEDS: INSULIN LISPRO 100 UNITS/ML, PEN SQ-INSULIN SCH ×4 (07:00→21:00)
[2018-06-14] MEDS: SENNA/DOCUSATE TABLET PO SCH (09:00)
[2018-06-14] MEDS: ALBUTEROL/IPRATROPIUM 2.5MG/0.5MG, 3 ML NPPB SCH ×2 (09:00→21:00)
[2018-06-14] MEDS: POTASSIUM CHLORIDE 20 MEQ TAB.ER.PRT PO SCH (09:57)
[2018-06-14] MEDS: SODIUM CHLORIDE FLUSH 10ML SYR IVF SCH ×2 (09:58→20:59)
[2018-06-14 09:59] VITALS: BP 155/84
[2018-06-14] MEDS: METOPROLOL TARTRATE 50 MG TABLET PO SCH ×2 (09:59→20:57)
[2018-06-14] MEDS: METOLAZONE 2.5 MG TABLET PO SCH ×2 (09:59→20:57)
[2018-06-14] MEDS: CYCLOBENZAPRINE 10 MG TABLET PO SCH ×3 (09:59→20:57)
[2018-06-14] MEDS: LISINOPRIL 5 MG TABLET PO SCH (10:00)
[2018-06-14] MEDS: ONDANSETRON 2MG/ML, 2ML IVPush PRN ×2 (10:17→22:13)
[2018-06-14] MEDS: FUROSEMIDE 20 MG/2 ML IV SCH ×2 (12:26→20:53)
[2018-06-14] MEDS: NICOTINE 14MG/24 HR PATCH.TD24 TD SCH (16:07)
[2018-06-14 16:12] VITALS: BP 131/80
[2018-06-14] MEDS: OXYcodone IR 5MG TABLET PO PRN ×2 (16:19→20:56)
[2018-06-14 18:50] VITALS: BP 148/79
[2018-06-14] MEDS: ATORVASTATIN 10 MG TABLET PO SCH (20:57)
[2018-06-14] MEDS: INSULIN GLARGINE 100 UNITS/ML, PEN SQ-INSULIN SCH (21:02)
[2018-06-15] MEDS: ONDANSETRON 2MG/ML, 2ML IVPush PRN ×3 (03:26→22:43)
[2018-06-15] MEDS: OXYcodone IR 5MG TABLET PO PRN ×3 (03:40→22:10)
[2018-06-15 03:50] VITALS: BP 114/72
[2018-06-15 05:54] LABS: BASOPHILS # (AUTO) 0.03 x10^3/uL (0-0.1); BASOPHILS % (AUTO) 0 % (0-1); EOSINOPHILS # (AUTO) 0.12 x10^3/uL (0-0.4); EOSINOPHILS % (AUTO) 2 % (1-7); LYMPHOCYTES # (AUTO) 1.03 x10^3/uL (1-3.4); LYMPHOCYTES % (AUTO) 15 % (22-44); MD NO; MEAN CORPUSCULAR HEMOGLOBIN 27.2 pg (27.5-34.5); MEAN CORPUSCULAR HGB CONC 32.2 g/dL (33.2-36.2); MEAN CORPUSCULAR VOLUME 84.5 fL (81-97); MEAN PLATELET VOLUME 8.3 fL (7.4-10.4); MONOCYTES # (AUTO) 1.12 x10^3/uL (0.2-0.8); MONOCYTES % (AUTO) 16 % (2-9); NEUTROPHILS # (AUTO) 4.71 x10^3/uL (1.8-6.8); NEUTROPHILS % (AUTO) 67 % (42-75); PLATELET COUNT 273 x10^3/uL (130-400); RED BLOOD COUNT 2.91 x10^6/uL (4.38-5.82); RED CELL DISTRIBUTION WIDTH 16.8 % (9.4-14.8)
[2018-06-15 06:03] LABS: ALBUMIN 2.1 g/dL (3.4-5.0); CHLORIDE 113 mmol/L (98-107)
[2018-06-15 06:10] LABS: ALANINE AMINOTRANSFERASE 16 U/L (12-78); ALKALINE PHOSPHATASE 96 U/L (45-117); ANION GAP 10 mmol/L (5-15); BILIRUBIN,TOTAL 0.7 mg/dL (0.2-1.0); CALCIUM 8.2 mg/dL (8.5-10.1); CREATININE 3.66 mg/dL (0.7-1.3); TOTAL PROTEIN 5.5 g/dL (6.4-8.2)
[2018-06-15] MEDS: ASPIRIN 325 MG TABLET EC PO SCH (06:25)
[2018-06-15] MEDS: HEPARIN 5,000 UNITS/ML, 1ML SQ SCH ×3 (06:27→22:06)
[2018-06-15] MEDS: INSULIN LISPRO 100 UNITS/ML, PEN SQ-INSULIN SCH ×4 (07:00→20:05)
[2018-06-15] MEDS: FUROSEMIDE 20 MG/2 ML IV SCH ×2 (08:40→16:46)
[2018-06-15] MEDS: METOPROLOL TARTRATE 50 MG TABLET PO SCH ×2 (08:41→20:04)
[2018-06-15] MEDS: LISINOPRIL 5 MG TABLET PO SCH (08:41)
[2018-06-15] MEDS: CYCLOBENZAPRINE 10 MG TABLET PO SCH ×3 (08:42→20:03)
[2018-06-15] MEDS: SENNA/DOCUSATE TABLET PO SCH (08:44)
[2018-06-15] MEDS: METOLAZONE 2.5 MG TABLET PO SCH ×2 (08:44→20:02)
[2018-06-15] MEDS: SODIUM CHLORIDE FLUSH 10ML SYR IVF SCH ×2 (09:00→22:05)
[2018-06-15] MEDS: ALBUTEROL/IPRATROPIUM 2.5MG/0.5MG, 3 ML NPPB SCH ×2 (10:50→20:46)
[2018-06-15 13:01] VITALS: BP 122/73
[2018-06-15 13:22] LABS: BASOPHILS # (AUTO) 0.04 x10^3/uL (0-0.1); BASOPHILS % (AUTO) 1 % (0-1); EOSINOPHILS # (AUTO) 0.18 x10^3/uL (0-0.4); EOSINOPHILS % (AUTO) 3 % (1-7); LYMPHOCYTES # (AUTO) 1.46 x10^3/uL (1-3.4); LYMPHOCYTES % (AUTO) 20 % (22-44); MD NO; MEAN CORPUSCULAR HEMOGLOBIN 28.1 pg (27.5-34.5); MEAN CORPUSCULAR HGB CONC 33.1 g/dL (33.2-36.2); MEAN CORPUSCULAR VOLUME 85.1 fL (81-97); MEAN PLATELET VOLUME 8.1 fL (7.4-10.4); MONOCYTES # (AUTO) 1.04 x10^3/uL (0.2-0.8); MONOCYTES % (AUTO) 15 % (2-9); NEUTROPHILS # (AUTO) 4.43 x10^3/uL (1.8-6.8); NEUTROPHILS % (AUTO) 62 % (42-75); PLATELET COUNT 289 x10^3/uL (130-400); RED BLOOD COUNT 2.93 x10^6/uL (4.38-5.82); RED CELL DISTRIBUTION WIDTH 16.8 % (9.4-14.8)
[2018-06-15 13:35] LABS: ALANINE AMINOTRANSFERASE 17 U/L (12-78); ALBUMIN 2.1 g/dL (3.4-5.0); ANION GAP 9 mmol/L (5-15); CALCIUM 8.6 mg/dL (8.5-10.1); CHLORIDE 111 mmol/L (98-107); CREATININE 3.69 mg/dL (0.7-1.3)
[2018-06-15 13:37] LABS: ALKALINE PHOSPHATASE 106 U/L (45-117); BILIRUBIN,TOTAL 0.5 mg/dL (0.2-1.0); TOTAL PROTEIN 5.9 g/dL (6.4-8.2)
[2018-06-15] MEDS: NICOTINE 14MG/24 HR PATCH.TD24 TD SCH (14:05)
[2018-06-15 15:46] VITALS: BP 117/80
[2018-06-15 17:37] LABS: TROPONIN I 0.116 ng/mL (0.000-0.045)
[2018-06-15 19:09] VITALS: BP 118/70
[2018-06-15] MEDS: ATORVASTATIN 10 MG TABLET PO SCH (20:05)
[2018-06-15] MEDS: INSULIN GLARGINE 100 UNITS/ML, PEN SQ-INSULIN SCH (21:00)
[2018-06-15 21:24] LABS: TROPONIN I 0.114 ng/mL (0.000-0.045)
[2018-06-16] VITALS (7 sets, daily range): BP systolic 115–148; BP diastolic 75–98
[2018-06-16 00:54] LABS: TROPONIN I 0.121 ng/mL (0.000-0.045)
[2018-06-16] MEDS: NITROGLYCERIN 0.4 MG BOTTLE (25 TABS) SL PRN ×3 (02:26→02:40)
[2018-06-16] MEDS ORDERED: SODIUM CHLORIDE 0.9% 1,000ML IVBOLUS ONE (03:30)
[2018-06-16] MEDS ORDERED: DIGOXIN 0.25 MG/ML, 2ML IVPush ONE ×2 (03:30→09:30)
[2018-06-16] MEDS: ASPIRIN 325 MG TABLET EC PO SCH (06:00)
[2018-06-16] MEDS: HEPARIN 5,000 UNITS/ML, 1ML SQ SCH (06:15)
[2018-06-16] MEDS ORDERED: HEPARIN 5,000 UNITS/ML, 1ML IV ONE (07:00)
[2018-06-16] MEDS: INSULIN LISPRO 100 UNITS/ML, PEN SQ-INSULIN SCH ×4 (07:50→20:03)
[2018-06-16] MEDS: ONDANSETRON 2MG/ML, 2ML IVPush PRN ×2 (07:51→20:07)
[2018-06-16] MEDS: PANTOPRAZOLE 40 MG IV IVPush SCH ×2 (07:51→19:59)
[2018-06-16] MEDS: FUROSEMIDE 20 MG/2 ML IV SCH ×2 (07:51→16:31)
[2018-06-16] MEDS ORDERED: METOPROLOL 1 MG/ML, 5ML IVPush PRN (08:00)
[2018-06-16] MEDS: IRON SUCROSE COMPLEX 100MG/5ML IV SCH (08:03)
[2018-06-16] MEDS: CYCLOBENZAPRINE 10 MG TABLET PO SCH ×3 (08:03→20:00)
[2018-06-16] MEDS: METOPROLOL TARTRATE 50 MG TABLET PO SCH ×2 (08:03→20:01)
[2018-06-16] MEDS: SENNA/DOCUSATE TABLET PO SCH (08:03)
[2018-06-16] MEDS: METOLAZONE 2.5 MG TABLET PO SCH ×2 (08:04→20:00)
[2018-06-16] MEDS: OXYcodone IR 5MG TABLET PO PRN ×2 (08:04→20:20)
[2018-06-16] MEDS: SODIUM CHLORIDE FLUSH 10ML SYR IVF SCH ×2 (08:04→20:02)
[2018-06-16 08:32] LABS: BASOPHILS # (AUTO) 0.04 x10^3/uL (0-0.1); BASOPHILS % (AUTO) 1 % (0-1); EOSINOPHILS # (AUTO) 0.04 x10^3/uL (0-0.4); EOSINOPHILS % (AUTO) 1 % (1-7); LYMPHOCYTES # (AUTO) 1.18 x10^3/uL (1-3.4); LYMPHOCYTES % (AUTO) 14 % (22-44); MD NO; MEAN CORPUSCULAR HEMOGLOBIN 27.4 pg (27.5-34.5); MEAN CORPUSCULAR HGB CONC 32.4 g/dL (33.2-36.2); MEAN CORPUSCULAR VOLUME 84.7 fL (81-97); MEAN PLATELET VOLUME 8.8 fL (7.4-10.4); MONOCYTES # (AUTO) 0.77 x10^3/uL (0.2-0.8); MONOCYTES % (AUTO) 9 % (2-9); NEUTROPHILS # (AUTO) 6.17 x10^3/uL (1.8-6.8); NEUTROPHILS % (AUTO) 75 % (42-75); PLATELET COUNT 333 x10^3/uL (130-400); RED BLOOD COUNT 3.25 x10^6/uL (4.38-5.82); RED CELL DISTRIBUTION WIDTH 16.9 % (9.4-14.8)
[2018-06-16 08:40] LABS: ALBUMIN 1.9 g/dL (3.4-5.0); ANION GAP 10 mmol/L (5-15); CALCIUM 8.5 mg/dL (8.5-10.1); CHLORIDE 109 mmol/L (98-107); CREATININE 3.91 mg/dL (0.7-1.3)
[2018-06-16] MEDS: ALBUTEROL/IPRATROPIUM 2.5MG/0.5MG, 3 ML NPPB SCH ×2 (09:00→21:00)
[2018-06-16] MEDS ORDERED: AMIODARONE 150 MG in DEXTROSE 5% 100 ML IV ONE (10:00)
[2018-06-16] MEDS ORDERED: AMIODARONE 900 MG in DEXTROSE 5% 482 ML IV PRN (10:00)
[2018-06-16] MEDS: HEPARIN 25,000 UNITS/500ML PMX 500 ML IV PRN (10:01)
[2018-06-16 10:07] LABS: INTERNATIONAL NORMALIZED RATIO 1.08 (0.93-1.1); PROTHROMBIN TIME 11.4 Seconds (9.6-11.5)
[2018-06-16] MEDS ORDERED: FILTER 0.22 MICRON FOR AMIODARONE IV PRN (10:30)
[2018-06-16] MEDS: NICOTINE 14MG/24 HR PATCH.TD24 TD SCH (14:47)
[2018-06-16] MEDS: HEPARIN 5,000 UNITS/ML, 1ML IV PRN ×2 (16:30→22:58)
[2018-06-16] MEDS: ATORVASTATIN 10 MG TABLET PO SCH (20:02)
[2018-06-17] MEDS: ONDANSETRON 2MG/ML, 2ML IVPush PRN (03:21)
[2018-06-17] MEDS: OXYcodone IR 5MG TABLET PO PRN ×3 (03:30→20:15)
[2018-06-17 05:30] VITALS: BP 126/75
[2018-06-17] MEDS: HEPARIN 25,000 UNITS/500ML PMX 500 ML IV PRN (05:45)
[2018-06-17 06:26] LABS: ALBUMIN 1.8 g/dL (3.4-5.0); ANION GAP 9 mmol/L (5-15); CALCIUM 8.4 mg/dL (8.5-10.1); CHLORIDE 109 mmol/L (98-107); CREATININE 3.93 mg/dL (0.7-1.3)
[2018-06-17 06:26] LABS: BASOPHILS # (AUTO) 0.05 x10^3/uL (0-0.1); BASOPHILS % (AUTO) 1 % (0-1); EOSINOPHILS # (AUTO) 0.23 x10^3/uL (0-0.4); EOSINOPHILS % (AUTO) 4 % (1-7); LYMPHOCYTES # (AUTO) 1.59 x10^3/uL (1-3.4); LYMPHOCYTES % (AUTO) 25 % (22-44); MD NO; MEAN CORPUSCULAR HEMOGLOBIN 28.3 pg (27.5-34.5); MEAN CORPUSCULAR HGB CONC 33.3 g/dL (33.2-36.2); MEAN CORPUSCULAR VOLUME 85.1 fL (81-97); MONOCYTES # (AUTO) 0.58 x10^3/uL (0.2-0.8); MONOCYTES % (AUTO) 9 % (2-9); NEUTROPHILS # (AUTO) 3.85 x10^3/uL (1.8-6.8); NEUTROPHILS % (AUTO) 61 % (42-75); PLATELET COUNT 311 x10^3/uL (130-400); RED BLOOD COUNT 2.82 x10^6/uL (4.38-5.82); RED CELL DISTRIBUTION WIDTH 16.6 % (9.4-14.8)
[2018-06-17] MEDS: INSULIN LISPRO 100 UNITS/ML, PEN SQ-INSULIN SCH ×4 (07:00→20:20)
[2018-06-17] MEDS ORDERED: MAGNESIUM SULFATE 1 GM in SODIUM CHLORIDE 0.9% 50 ML IV ONE ×2 (07:00→10:00)
[2018-06-17] MEDS: ALBUTEROL/IPRATROPIUM 2.5MG/0.5MG, 3 ML NPPB SCH ×2 (09:00→20:58)
[2018-06-17 09:56] VITALS: BP 116/70
[2018-06-17] MEDS: SODIUM BICARBONATE 650 MG TABLET PO SCH ×2 (09:58→20:18)
[2018-06-17] MEDS: PANTOPRAZOLE 40 MG IV IVPush SCH ×2 (09:58→20:18)
[2018-06-17] MEDS: METOLAZONE 2.5 MG TABLET PO SCH ×2 (09:59→20:17)
[2018-06-17] MEDS: METOPROLOL TARTRATE 50 MG TABLET PO SCH ×2 (10:01→20:16)
[2018-06-17] MEDS: IRON SUCROSE COMPLEX 100MG/5ML IV SCH (10:02)
[2018-06-17] MEDS: CYCLOBENZAPRINE 10 MG TABLET PO SCH ×3 (10:02→20:16)
[2018-06-17] MEDS: SODIUM CHLORIDE FLUSH 10ML SYR IVF SCH ×2 (10:03→20:15)
[2018-06-17] MEDS: SENNA/DOCUSATE TABLET PO SCH (10:03)
[2018-06-17] MEDS: SEVELAMER CARBONATE 800MG TAB PO SCH ×2 (12:08→17:45)
[2018-06-17] MEDS: NICOTINE 14MG/24 HR PATCH.TD24 TD SCH (15:29)
[2018-06-17 15:45] VITALS: BP 112/71
[2018-06-17] MEDS: FUROSEMIDE 40 MG/4 ML IV SCH (17:43)
[2018-06-17] MEDS: ATORVASTATIN 10 MG TABLET PO SCH (20:16)
[2018-06-17 20:43] VITALS: BP 125/69
[2018-06-18 01:05] VITALS: BP 133/78
[2018-06-18] MEDS: OXYcodone IR 5MG TABLET PO PRN ×2 (01:23→15:40)
[2018-06-18 05:01] LABS: BASOPHILS # (AUTO) 0.03 x10^3/uL (0-0.1); BASOPHILS % (AUTO) 1 % (0-1); EOSINOPHILS # (AUTO) 0.18 x10^3/uL (0-0.4); EOSINOPHILS % (AUTO) 3 % (1-7); LYMPHOCYTES # (AUTO) 1.58 x10^3/uL (1-3.4); LYMPHOCYTES % (AUTO) 25 % (22-44); MD NO; MEAN CORPUSCULAR HGB CONC 32.9 g/dL (33.2-36.2); MEAN CORPUSCULAR VOLUME 84.9 fL (81-97); MEAN PLATELET VOLUME 8.6 fL (7.4-10.4); MONOCYTES # (AUTO) 0.75 x10^3/uL (0.2-0.8); MONOCYTES % (AUTO) 12 % (2-9); NEUTROPHILS # (AUTO) 3.72 x10^3/uL (1.8-6.8); NEUTROPHILS % (AUTO) 59 % (42-75); PLATELET COUNT 314 x10^3/uL (130-400); RED BLOOD COUNT 2.94 x10^6/uL (4.38-5.82); RED CELL DISTRIBUTION WIDTH 16.6 % (9.4-14.8)
[2018-06-18 05:15] LABS: ALBUMIN 1.9 g/dL (3.4-5.0); ANION GAP 9 mmol/L (5-15); CALCIUM 8.3 mg/dL (8.5-10.1); CHLORIDE 108 mmol/L (98-107); CREATININE 4.19 mg/dL (0.7-1.3)
[2018-06-18] MEDS: INSULIN LISPRO 100 UNITS/ML, PEN SQ-INSULIN SCH ×4 (07:00→21:10)
[2018-06-18 08:45] VITALS: BP 143/79
[2018-06-18] MEDS: SEVELAMER CARBONATE 800MG TAB PO SCH (08:47)
[2018-06-18] MEDS: CYCLOBENZAPRINE 10 MG TABLET PO SCH ×3 (08:47→21:11)
[2018-06-18] MEDS: SODIUM BICARBONATE 650 MG TABLET PO SCH ×2 (08:48→21:12)
[2018-06-18] MEDS: METOLAZONE 2.5 MG TABLET PO SCH ×2 (08:48→21:11)
[2018-06-18] MEDS: METOPROLOL TARTRATE 50 MG TABLET PO SCH ×2 (08:48→21:12)
[2018-06-18] MEDS: SENNA/DOCUSATE TABLET PO SCH (08:48)
[2018-06-18] MEDS: IRON SUCROSE COMPLEX 100MG/5ML IV SCH (08:59)
[2018-06-18] MEDS: PANTOPRAZOLE 40 MG IV IVPush SCH (08:59)
[2018-06-18] MEDS: FUROSEMIDE 40 MG/4 ML IV SCH (09:00)
[2018-06-18] MEDS: SODIUM CHLORIDE FLUSH 10ML SYR IVF SCH ×2 (09:00→21:10)
[2018-06-18] MEDS: ALBUTEROL/IPRATROPIUM 2.5MG/0.5MG, 3 ML NPPB SCH ×2 (10:00→20:50)
[2018-06-18] MEDS ORDERED: [UNRECOGNIZED DRUG - REMARK] MC SCH (12:50)
[2018-06-18] MEDS: SEVELAMER 2.4 GM POWD.PACK PO SCH ×2 (13:22→18:04)
[2018-06-18] MEDS: NICOTINE 14MG/24 HR PATCH.TD24 TD SCH (13:22)
[2018-06-18 14:14] VITALS: BP 147/82
[2018-06-18] MEDS ORDERED: FUROSEMIDE 40 MG/4 ML ONE (18:00)
[2018-06-18] MEDS: PANTOPRAZOLE 20MG TABLET PO SCH (18:04)
[2018-06-18] MEDS: FUROSEMIDE 100 MG/10 ML IV SCH (18:05)
[2018-06-18 21:03] VITALS: BP 138/66
[2018-06-18] MEDS: ATORVASTATIN 10 MG TABLET PO SCH (21:10)
[2018-06-19 00:48] VITALS: BP 139/71
[2018-06-19] MEDS: PANTOPRAZOLE 20MG TABLET PO SCH ×2 (05:15→17:56)
[2018-06-19] MEDS: OXYcodone IR 5MG TABLET PO PRN (05:15)
[2018-06-19 05:52] LABS: BASOPHILS # (AUTO) 0.03 x10^3/uL (0-0.1); BASOPHILS % (AUTO) 1 % (0-1); EOSINOPHILS # (AUTO) 0.22 x10^3/uL (0-0.4); EOSINOPHILS % (AUTO) 4 % (1-7); LYMPHOCYTES # (AUTO) 1.42 x10^3/uL (1-3.4); LYMPHOCYTES % (AUTO) 24 % (22-44); MD NO; MEAN CORPUSCULAR HEMOGLOBIN 28.1 pg (27.5-34.5); MEAN CORPUSCULAR VOLUME 85.2 fL (81-97); MEAN PLATELET VOLUME 8.7 fL (7.4-10.4); MONOCYTES # (AUTO) 0.57 x10^3/uL (0.2-0.8); MONOCYTES % (AUTO) 10 % (2-9); NEUTROPHILS # (AUTO) 3.71 x10^3/uL (1.8-6.8); NEUTROPHILS % (AUTO) 62 % (42-75); PLATELET COUNT 333 x10^3/uL (130-400); RED BLOOD COUNT 2.93 x10^6/uL (4.38-5.82); RED CELL DISTRIBUTION WIDTH 16.8 % (9.4-14.8)
[2018-06-19 06:01] LABS: ALANINE AMINOTRANSFERASE 9 U/L (12-78); ALBUMIN 1.8 g/dL (3.4-5.0); ANION GAP 7 mmol/L (5-15); CALCIUM 7.7 mg/dL (8.5-10.1); CHLORIDE 108 mmol/L (98-107); CREATININE 4.64 mg/dL (0.7-1.3)
[2018-06-19 06:04] LABS: ALKALINE PHOSPHATASE 92 U/L (45-117); BILIRUBIN,TOTAL 0.1 mg/dL (0.2-1.0); TOTAL PROTEIN 5.4 g/dL (6.4-8.2)
[2018-06-19] MEDS: INSULIN LISPRO 100 UNITS/ML, PEN SQ-INSULIN SCH ×4 (07:00→20:33)
[2018-06-19] MEDS: ALBUTEROL/IPRATROPIUM 2.5MG/0.5MG, 3 ML NPPB SCH ×2 (07:16→21:00)
[2018-06-19 07:37] VITALS: BP 154/75
[2018-06-19] MEDS: SODIUM CHLORIDE FLUSH 10ML SYR IVF SCH ×2 (09:00→20:35)
[2018-06-19] MEDS: SODIUM BICARBONATE 650 MG TABLET PO SCH ×2 (09:30→20:34)
[2018-06-19] MEDS: METOLAZONE 2.5 MG TABLET PO SCH ×2 (09:31→20:35)
[2018-06-19] MEDS: CYCLOBENZAPRINE 10 MG TABLET PO SCH ×3 (09:31→20:34)
[2018-06-19] MEDS: METOPROLOL TARTRATE 50 MG TABLET PO SCH ×2 (09:31→20:34)
[2018-06-19] MEDS: SEVELAMER 2.4 GM POWD.PACK PO SCH ×3 (09:32→17:00)
[2018-06-19] MEDS: SENNA/DOCUSATE TABLET PO SCH (09:34)
[2018-06-19] MEDS: IRON SUCROSE COMPLEX 100MG/5ML IV SCH (09:41)
[2018-06-19] MEDS: FUROSEMIDE 100 MG/10 ML IV SCH ×2 (09:41→17:57)
[2018-06-19] MEDS: NICOTINE 14MG/24 HR PATCH.TD24 TD SCH (13:02)
[2018-06-19 14:33] VITALS: BP 130/73
[2018-06-19 20:11] VITALS: BP 149/77
[2018-06-19] MEDS: ATORVASTATIN 10 MG TABLET PO SCH (20:33)
[2018-06-20 00:20] VITALS: BP 143/76
[2018-06-20] MEDS: OXYcodone IR 5MG TABLET PO PRN ×3 (03:42→19:50)
[2018-06-20] MEDS: PANTOPRAZOLE 20MG TABLET PO SCH ×2 (05:47→16:55)
[2018-06-20] MEDS: INSULIN LISPRO 100 UNITS/ML, PEN SQ-INSULIN SCH ×4 (07:00→20:00)
[2018-06-20 07:14] LABS: ALBUMIN 1.8 g/dL (3.4-5.0); ANION GAP 9 mmol/L (5-15); CALCIUM 8.2 mg/dL (8.5-10.1); CHLORIDE 106 mmol/L (98-107); CREATININE 4.19 mg/dL (0.7-1.3)
[2018-06-20 08:30] VITALS: BP 153/75
[2018-06-20] MEDS: SEVELAMER 2.4 GM POWD.PACK PO SCH ×3 (08:47→16:55)
[2018-06-20] MEDS: FUROSEMIDE 100 MG/10 ML IV SCH ×2 (08:48→16:55)
[2018-06-20] MEDS: IRON SUCROSE COMPLEX 100MG/5ML IV SCH (08:48)
[2018-06-20] MEDS: SODIUM CHLORIDE FLUSH 10ML SYR IVF SCH ×2 (08:48→19:49)
[2018-06-20] MEDS: SODIUM BICARBONATE 650 MG TABLET PO SCH ×2 (08:49→19:51)
[2018-06-20] MEDS: SENNA/DOCUSATE TABLET PO SCH (08:49)
[2018-06-20] MEDS: METOLAZONE 2.5 MG TABLET PO SCH ×2 (08:49→19:51)
[2018-06-20] MEDS: METOPROLOL TARTRATE 50 MG TABLET PO SCH ×2 (08:50→19:51)
[2018-06-20] MEDS: CYCLOBENZAPRINE 10 MG TABLET PO SCH ×3 (08:50→19:50)
[2018-06-20] MEDS: ALBUTEROL/IPRATROPIUM 2.5MG/0.5MG, 3 ML NPPB SCH (10:18)
[2018-06-20] MEDS ORDERED: MAGNESIUM SULFATE PMX 2GM/50ML 50 ML IV ONE (11:00)
[2018-06-20] MEDS: ONDANSETRON 2MG/ML, 2ML IVPush PRN (12:38)
[2018-06-20] MEDS: NICOTINE 14MG/24 HR PATCH.TD24 TD SCH (13:34)
[2018-06-20 15:09] VITALS: BP 143/75
[2018-06-20 18:50] VITALS: BP 147/83
[2018-06-20] MEDS: ATORVASTATIN 10 MG TABLET PO SCH (19:52)
[2018-06-20] MEDS: MELATONIN 5 MG TABLET PO SCH (19:52)
[2018-06-20 22:54] LABS: OCCULT BLOOD POSITIVE (NEGATIVE)
[2018-06-21] VITALS: BP 128/73
[2018-06-21] MEDS: PANTOPRAZOLE 20MG TABLET PO SCH ×2 (06:02→16:29)
[2018-06-21] MEDS: OXYcodone IR 5MG TABLET PO PRN ×2 (06:03→16:25)
[2018-06-21] MEDS: INSULIN LISPRO 100 UNITS/ML, PEN SQ-INSULIN SCH ×4 (07:00→20:23)
[2018-06-21] MEDS: SEVELAMER 2.4 GM POWD.PACK PO SCH ×3 (08:00→16:26)
[2018-06-21 08:30] VITALS: BP 153/81
[2018-06-21] MEDS: SENNA/DOCUSATE TABLET PO SCH (08:42)
[2018-06-21] MEDS: METOLAZONE 2.5 MG TABLET PO SCH ×2 (08:42→16:26)
[2018-06-21] MEDS: METOPROLOL TARTRATE 50 MG TABLET PO SCH ×2 (08:42→20:25)
[2018-06-21] MEDS: SODIUM BICARBONATE 650 MG TABLET PO SCH ×2 (08:42→20:23)
[2018-06-21] MEDS: IRON SUCROSE COMPLEX 100MG/5ML IV SCH (08:43)
[2018-06-21] MEDS: CYCLOBENZAPRINE 10 MG TABLET PO SCH ×3 (08:43→20:24)
[2018-06-21] MEDS: FUROSEMIDE 100 MG/10 ML IV SCH ×2 (08:43→16:27)
[2018-06-21] MEDS: SODIUM CHLORIDE FLUSH 10ML SYR IVF SCH ×2 (08:44→20:22)
[2018-06-21] MEDS: NICOTINE 14MG/24 HR PATCH.TD24 TD SCH (14:11)
[2018-06-21 16:30] VITALS: BP 146/81
[2018-06-21 19:23] VITALS: BP 143/83
[2018-06-21] MEDS: MELATONIN 5 MG TABLET PO SCH (20:24)
[2018-06-21] MEDS: ATORVASTATIN 10 MG TABLET PO SCH (20:24)
[2018-06-22 00:46] VITALS: BP 159/88
[2018-06-22] MEDS: PANTOPRAZOLE 20MG TABLET PO SCH ×2 (05:05→17:09)
[2018-06-22] MEDS: OXYcodone IR 5MG TABLET PO PRN ×2 (05:06→14:34)
[2018-06-22 05:29] LABS: ALBUMIN 1.8 g/dL (3.4-5.0); ANION GAP 7 mmol/L (5-15); CHLORIDE 106 mmol/L (98-107)
[2018-06-22] MEDS: INSULIN LISPRO 100 UNITS/ML, PEN SQ-INSULIN SCH ×4 (07:00→20:37)
[2018-06-22 07:42] VITALS: BP 167/92
[2018-06-22] MEDS: SEVELAMER 2.4 GM POWD.PACK PO SCH ×3 (08:00→17:00)
[2018-06-22] MEDS: IRON SUCROSE COMPLEX 100MG/5ML IV SCH (08:15)
[2018-06-22] MEDS: FUROSEMIDE 100 MG/10 ML IV SCH ×2 (08:15→16:27)
[2018-06-22] MEDS: METOPROLOL TARTRATE 50 MG TABLET PO SCH ×2 (08:16→20:35)
[2018-06-22] MEDS: SODIUM BICARBONATE 650 MG TABLET PO SCH ×2 (08:17→20:36)
[2018-06-22] MEDS: METOLAZONE 2.5 MG TABLET PO SCH ×2 (08:18→20:36)
[2018-06-22] MEDS: TAMSULOSIN 0.4 MG CAP.ER.24H PO SCH (08:18)
[2018-06-22] MEDS: CYCLOBENZAPRINE 10 MG TABLET PO SCH ×3 (08:18→20:36)
[2018-06-22] MEDS: SENNA/DOCUSATE TABLET PO SCH (08:19)
[2018-06-22] MEDS: SODIUM CHLORIDE FLUSH 10ML SYR IVF SCH ×2 (08:20→20:34)
[2018-06-22 13:26] VITALS: BP 126/72
[2018-06-22] MEDS: NICOTINE 14MG/24 HR PATCH.TD24 TD SCH (13:59)
[2018-06-22 20:28] VITALS: BP 126/78
[2018-06-22] MEDS: MELATONIN 5 MG TABLET PO SCH (20:36)
[2018-06-22] MEDS: ATORVASTATIN 10 MG TABLET PO SCH (20:37)
[2018-06-23 00:13] VITALS: BP 128/77
[2018-06-23] MEDS: OXYcodone IR 5MG TABLET PO PRN ×3 (04:25→17:49)
[2018-06-23] MEDS: PANTOPRAZOLE 20MG TABLET PO SCH ×2 (05:31→17:39)
[2018-06-23 05:35] LABS: ALBUMIN 1.9 g/dL (3.4-5.0); ANION GAP 8 mmol/L (5-15); CHLORIDE 105 mmol/L (98-107); CREATININE 4.02 mg/dL (0.7-1.3)
[2018-06-23] MEDS: INSULIN LISPRO 100 UNITS/ML, PEN SQ-INSULIN SCH ×4 (07:00→21:15)
[2018-06-23 07:29] VITALS: BP_SYST 166; BP_DIAS 92; BP_DIAS 98
[2018-06-23] MEDS: FUROSEMIDE 100 MG/10 ML IV SCH (07:57)
[2018-06-23] MEDS: SEVELAMER 2.4 GM POWD.PACK PO SCH ×3 (08:00→16:11)
[2018-06-23] MEDS: IRON SUCROSE COMPLEX 100MG/5ML IV SCH (08:32)
[2018-06-23] MEDS: HEPARIN 5,000 UNITS/ML, 1ML SQ SCH ×2 (08:32→21:13)
[2018-06-23] MEDS: SODIUM BICARBONATE 650 MG TABLET PO SCH ×2 (08:32→21:12)
[2018-06-23] MEDS: TAMSULOSIN 0.4 MG CAP.ER.24H PO SCH (08:32)
[2018-06-23] MEDS: MAGNESIUM OXIDE 400 MG TABLET PO SCH ×2 (08:32→21:10)
[2018-06-23] MEDS: SENNA/DOCUSATE TABLET PO SCH ×2 (08:33→09:00)
[2018-06-23] MEDS: METOLAZONE 2.5 MG TABLET PO SCH ×2 (08:33→21:09)
[2018-06-23] MEDS: METOPROLOL TARTRATE 50 MG TABLET PO SCH ×2 (08:33→21:06)
[2018-06-23] MEDS: SODIUM CHLORIDE FLUSH 10ML SYR IVF SCH ×2 (08:35→21:05)
[2018-06-23] MEDS: CYCLOBENZAPRINE 10 MG TABLET PO SCH ×3 (08:40→21:10)
[2018-06-23] MEDS: NICOTINE 14MG/24 HR PATCH.TD24 TD SCH (13:25)
[2018-06-23 14:20] VITALS: BP 136/69
[2018-06-23 20:59] VITALS: BP 145/73
[2018-06-23] MEDS: FUROSEMIDE 40 MG TABLET PO SCH (21:08)
[2018-06-23] MEDS: ATORVASTATIN 10 MG TABLET PO SCH (21:08)
[2018-06-23] MEDS: MELATONIN 5 MG TABLET PO SCH (21:12)
[2018-06-24 01:54] VITALS: BP 145/84
[2018-06-24] MEDS: OXYcodone IR 5MG TABLET PO PRN (01:54)
[2018-06-24] MEDS: PANTOPRAZOLE 20MG TABLET PO SCH (06:01)
[2018-06-24] MEDS: INSULIN LISPRO 100 UNITS/ML, PEN SQ-INSULIN SCH ×2 (07:00→11:00)
[2018-06-24] MEDS: SODIUM BICARBONATE 650 MG TABLET PO SCH (08:02)
[2018-06-24] MEDS: MAGNESIUM OXIDE 400 MG TABLET PO SCH (08:03)
[2018-06-24] MEDS: METOLAZONE 2.5 MG TABLET PO SCH (08:03)
[2018-06-24] MEDS: SENNA/DOCUSATE TABLET PO SCH (08:03)
[2018-06-24] MEDS: METOPROLOL TARTRATE 50 MG TABLET PO SCH (08:05)
[2018-06-24 08:22] VITALS: BP 168/83
[2018-06-24] MEDS: SEVELAMER 2.4 GM POWD.PACK PO SCH ×2 (08:22→12:00)
[2018-06-24] MEDS: FUROSEMIDE 40 MG TABLET PO SCH (08:22)
[2018-06-24] MEDS: CYCLOBENZAPRINE 10 MG TABLET PO SCH (08:28)
[2018-06-24] MEDS: HEPARIN 5,000 UNITS/ML, 1ML SQ SCH (08:44)
[2018-06-24] MEDS: TAMSULOSIN 0.4 MG CAP.ER.24H PO SCH (08:44)
[2018-06-24] MEDS: SODIUM CHLORIDE FLUSH 10ML SYR IVF SCH (09:00)
[2018-06-24 10:37] LABS: MEAN CORPUSCULAR HGB CONC 33.3 g/dL (33.2-36.2); MEAN PLATELET VOLUME 7.6 fL (7.4-10.4); PLATELET COUNT 444 x10^3/uL (130-400); RED BLOOD COUNT 3.36 x10^6/uL (4.38-5.82); RED CELL DISTRIBUTION WIDTH 16.5 % (9.4-14.8)
[2018-06-24 10:40] LABS: ALBUMIN 1.8 g/dL (3.4-5.0); ANION GAP 7 mmol/L (5-15); CALCIUM 8.3 mg/dL (8.5-10.1); CHLORIDE 103 mmol/L (98-107)
[2018-06-24 10:44] LABS: ALANINE AMINOTRANSFERASE 8 U/L (12-78); ALKALINE PHOSPHATASE 85 U/L (45-117); BILIRUBIN,TOTAL 0.2 mg/dL (0.2-1.0); CREATININE 3.94 mg/dL (0.7-1.3); TOTAL PROTEIN 5.6 g/dL (6.4-8.2)
[2018-06-24 11:03] LABS: MD YES
[2018-06-24 11:05] LABS: BAND#(MANUAL) 0.23 x10^3/uL; BANDS%(MANUAL) 2 % (0-7); EOS#(MANUAL) 0.46 x10^3/uL (0.0-0.4); EOS% (MANUAL) 4 % (1-7); LYMPH#(MANUAL) 1.71 x10^3/uL (1-3.4); LYMPHS% (MANUAL) 15 % (22-44); MONOS#(MANUAL) 0.34 x10^3/uL (0.3-2.7); MONOS% (MANUAL) 3 % (2-9); REACTIVE LYMPHS # (MANUAL) 0.11 x10^3/uL (0-0); REACTIVE LYMPHS % (MANUAL) 1 % (0-0); SEG#(MANUAL) 8.55 x10^3/uL (1.8-6.8); SEGS% (MANUAL) 75 % (42-75)
[2018-06-24 11:07] LABS: <PLATELET ESTIMATE> INCREASED; <PLT MORPHOLOGY> NORMAL PLT MORPH; ANISOCYTOSIS 1+
[2018-06-24] MEDS ORDERED: PANT20TA3 PO (13:09)
[2018-06-24] MEDS ORDERED: FURO40TA6 PO (13:09)
[2018-06-24] MEDS ORDERED: SEVE2.4P PO (13:09)
[2018-06-24] MEDS ORDERED: METO50TA82 PO (13:09)
[2018-06-24] MEDS ORDERED: TAMS-11 PO (13:09)
[2018-06-24] MEDS ORDERED: SODI650T PO (13:09)
[2018-06-24] MEDS ORDERED: METO2.5T PO (13:09)
[2018-06-24] MEDS ORDERED: MAGN400T50 PO (13:09)
[2018-06-24] MEDS: NICOTINE 14MG/24 HR PATCH.TD24 TD SCH (13:37)
== END 2018-06-24 15:06 | disposition home or self-care (01) | DRG 682 ==
LOC: ED 10:04 → EDIP 12:37 → 5SO 13:52
PROVIDERS: ADMIT Family Medicine; ATTEND Hospitalist
PROC: 0T9B70Z Drainage of Bladder with Drainage Device, Via Natural or Artificial Opening (ICD-10-PCS; 2018-06-10)
PROC: 30233N1 Transfusion of Nonautologous Red Blood Cells into Peripheral Vein, Percutaneous Approach (ICD-10-PCS; principal; 2018-06-12)
PROC: 5A2204Z Restoration of Cardiac Rhythm, Single (ICD-10-PCS; 2018-06-17)
DX: N17.0 Acute kidney failure with tubular necrosis (principal); E43 Unspecified severe protein-calorie malnutrition; I50.43 Acute on chronic combined systolic (congestive) and diastolic (congestive) heart failure; I13.0 Hypertensive heart and chronic kidney disease with heart failure and stage 1 through stage 4 chronic kidney disease, or unspecified chronic kidney disease; D68.69 Other thrombophilia; I48.92 Unspecified atrial flutter; N50.89 Other specified disorders of the male genital organs; R74.8 Abnormal levels of other serum enzymes; J44.9 Chronic obstructive pulmonary disease, unspecified; E11.649 Type 2 diabetes mellitus with hypoglycemia without coma; I25.2 Old myocardial infarction; I25.10 Atherosclerotic heart disease of native coronary artery without angina pectoris; I48.0 Paroxysmal atrial fibrillation; I95.9 Hypotension, unspecified; D50.9 Iron deficiency anemia, unspecified; D63.8 Anemia in other chronic diseases classified elsewhere; N18.2 Chronic kidney disease, stage 2 (mild); E11.22 Type 2 diabetes mellitus with diabetic chronic kidney disease; E83.39 Other disorders of phosphorus metabolism; R33.9 Retention of urine, unspecified; E83.42 Hypomagnesemia; F17.210 Nicotine dependence, cigarettes, uncomplicated; E11.40 Type 2 diabetes mellitus with diabetic neuropathy, unspecified; E11.65 Type 2 diabetes mellitus with hyperglycemia; N50.819 Testicular pain, unspecified; Z89.511 Acquired absence of right leg below knee; Z82.3 Family history of stroke; Z80.9 Family history of malignant neoplasm, unspecified; Z90.49 Acquired absence of other specified parts of digestive tract; Z88.0 Allergy status to penicillin; Z88.6 Allergy status to analgesic agent; Z88.2 Allergy status to sulfonamides; Z91.041 Radiographic dye allergy status; Z79.4 Long term (current) use of insulin; Z91.013 Allergy to seafood; Z68.25 Body mass index [BMI] 25.0-25.9, adult
CPT/HCPCS: 36415; 87338; 99285; J7620; 71045; 72131; 74176; 80048; 80053; 80061; 80069; 81001; 81050; 82040; 82272; 82306; 82570; 82728; 82962; 83540; 83550; 83735; 83880; 83970; 84100; 84443; 84466; 84484; 85025; 85520; 85610; 85730; 86850; 86900; 86923; 93005; 93306; 94640; 96374; G0378; J1644; J1756; J1940; J2405; J3475; P9047; C9113; J0282; J1160; J1815; J7030; J7060; P9016

== ENCOUNTER 2018-07-31 17:51 | Inpatient (IN) | payer MEDICAID ==
[~2018-07-31] VITALS: Ht 185.4 cm; Wt 99.2 kg
[~2018-07-31 17:51] MED LIST changes: +ASPI-650 PO; +ATOR10TA9 PO; +CYCL5TAB PO; +FURO40TA6 PO; +FURO80TA3 PO; +INSU100I34 SQ-INSULIN; +MAGN400T50 PO; +METO2.5T PO; +METO25TA35 PO; +METO50TA82 PO; +METO5TAB2 PO; +ONDA4TAB7 PO; +PANT20TA3 PO; +SEVE2.4P PO; +TAMS-11 PO
--- NOTE | 2018-07-31 18:04 | NUR ---
PT BIB [facility] FOR DIFFICULTY OF URINATION, SWOLLEN SCROTUM, AND BLOOD IN URINE. PT HAS HISTROY OF RENAL FAILURE. PT DENIES BLOOD IN URINE. STATED THAT HIS URINE IS DARK ORANGE. PT STATED THAT SHE SCROTUM HAS BEEN SWOLLEN FOR 4 TO 5 DAYS AND THAT THIS HAS HAPPENED BEFORE AND WAS TOLD THAT HE WAS RETAINING FLUID. PT IS ALERT, ORIENTED, WITH NAD. PT IS CONNECTED TO THE MONITOR. CALL LIGHT WITHIN REACH. Addendum: 07/31/18 at 1811 by BRIANNE [id number]
[2018-07-31] MEDS ORDERED: ALBU0.63 NEB (18:10)
--- NOTE | 2018-07-31 18:58 | NUR ---
REPORT TO SHARON FLORES.
[2018-07-31] MEDS ORDERED: SODIUM CHLORIDE FLUSH 10ML SYR IVF ONE (19:00)
[2018-07-31 19:04] LABS: BASOPHILS # (AUTO) 0.01 x10^3/uL (0-0.1); BASOPHILS % (AUTO) 0 % (0-1); EOSINOPHILS # (AUTO) 0.01 x10^3/uL (0-0.4); EOSINOPHILS % (AUTO) 0 % (1-7); LYMPHOCYTES # (AUTO) 0.57 x10^3/uL (1-3.4); LYMPHOCYTES % (AUTO) 6 % (22-44); MD NO; MEAN CORPUSCULAR HEMOGLOBIN 27.7 pg (27.5-34.5); MEAN CORPUSCULAR HGB CONC 32.5 g/dL (33.2-36.2); MEAN CORPUSCULAR VOLUME 85.2 fL (81-97); MEAN PLATELET VOLUME 7.8 fL (7.4-10.4); MONOCYTES # (AUTO) 0.84 x10^3/uL (0.2-0.8); MONOCYTES % (AUTO) 8 % (2-9); NEUTROPHILS # (AUTO) 8.73 x10^3/uL (1.8-6.8); NEUTROPHILS % (AUTO) 86 % (42-75); PLATELET COUNT 349 x10^3/uL (130-400); RED CELL DISTRIBUTION WIDTH 18.8 % (9.4-14.8)
--- NOTE | 2018-07-31 19:14 | NUR ---
PT UPDATED ON POC. PIV INSERTED FOR CT SCAN. PT PLACED ON CONT. SPO2, BP, AND PRODUCTION LINE ASSEMBLER. PT IS VERY DEFENSIVE WITH THIS RN WITH EVERY INTERVENTION, PT EDUCATED ON EACH INTERVENTION AND IMPORTANCE TO POC.
[2018-07-31 19:16] LABS: ALANINE AMINOTRANSFERASE 21 U/L (12-78); ANION GAP 10 mmol/L (5-15); CALCIUM 8.1 mg/dL (8.5-10.1); CHLORIDE 120 mmol/L (98-107); CREATININE 4.43 mg/dL (0.7-1.3)
[2018-07-31 19:20] LABS: ALKALINE PHOSPHATASE 166 U/L (45-117); BILIRUBIN,TOTAL 0.3 mg/dL (0.2-1.0); TOTAL PROTEIN 6.3 g/dL (6.4-8.2)
[2018-07-31] MEDS ORDERED: MORPHINE SULFATE 4 MG/ML, 1ML ONE (19:59)
[2018-07-31] MEDS ORDERED: MORPHINE SULFATE 4 MG/ML, 1ML IVPush PRN (20:00)
[2018-07-31] MEDS ORDERED: FUROSEMIDE 40 MG/4 ML IV ONE (20:00)
[2018-07-31] MEDS ORDERED: FUROSEMIDE 40 MG/4 ML ONE (20:52)
[2018-07-31] MEDS: METOPROLOL TARTRATE 50 MG TABLET PO SCH (21:00)
[2018-07-31] MEDS: HEPARIN 5,000 UNITS/ML, 1ML SQ SCH (21:00)
[2018-07-31] MEDS ORDERED: INSULIN GLARGINE 100 UNITS/ML, PEN SQ-INSULIN SCH (21:00)
[2018-07-31] MEDS ORDERED: POLYETHYLENE GLYCOL 17 GM PACKET PO PRN (21:00)
[2018-07-31] MEDS ORDERED: BISACODYL 10 MG SUPP PR PRN (21:00)
[2018-07-31 21:23] LABS: HEMOGLOBIN A1C 6.7 % (4.2-6.3)
[2018-07-31] MEDS ORDERED: METOPROLOL 1 MG/ML, 5ML IVPush PRN (21:30)
--- NOTE | 2018-07-31 21:30 | NUR ---
PT WENT INTO AFIB WITH RVR, RATE IN THE 160S. EKG DONE, DR CHANG NOTIFIED, LABETALOL REQUESTED FROM PHARM
[2018-07-31] MEDS: ONDANSETRON 4 MG TABLET PO PRN (21:47)
[2018-07-31] MEDS ORDERED: ONDANSETRON ODT 4 MG ONE (21:48)
[2018-07-31] MEDS: LABETALOL 5 MG/ML SYRINGE IVPush SCH ×3 (22:01→22:31)
[2018-07-31 22:05] LABS: TROPONIN I 0.279 ng/mL (0.000-0.045)
[2018-07-31] MEDS ORDERED: HEPARIN 5,000 UNITS/ML, 1ML ONE (22:36)
[2018-07-31] MEDS ORDERED: METOPROLOL TARTRATE 50 MG TABLET ONE (22:37)
[2018-07-31] MEDS ORDERED: METOPROLOL TARTRATE 25 MG TABLET ONE (22:37)
[2018-07-31 23:31] LABS: FREE T4 (FREE THYROXINE) 1.02 ng/dL (0.76-1.46); THYROID STIMULATING HORMONE 1.71 mIU/L (0.358-3.740)
[2018-07-31] MEDS ORDERED: CALCIUM GLUCONATE 4.6 MEQ/10 ML ONE (23:42)
[2018-07-31] MEDS ORDERED: DEXTROSE 50%, 50ML SYRINGE ONE (23:42)
[2018-07-31] MEDS ORDERED: CALCIUM CHLORIDE 10%, 10ML SYR ONE (23:43)
[2018-07-31] MEDS ORDERED: INSULIN LISPRO 100 UNITS/ML, PEN ONE (23:43)
--- NOTE | 2018-07-31 23:56 | NUR ---
PT'S POTASSIUM 6.9. PLACED A CALL OUT TO [facility] CORRAL. WHILE WATING FOR CALLBACK, APPROACHED DR. RED, TOLD HER "ONE OF SHAYNA'S PATIENTS HAS A K+ OF 6.9, CAN WE DO SOMETHING?" SHE STATED "CAN WE STOP ADMITTING PATIENTS" AND THEN CONTINUED TO DICTATE. NOTIFIED DR. CHANG, HE PLACED ORDERS FOR K LEVEL
[2018-08-01] MEDS ORDERED: SODIUM POLY SULFONATE UDC 15 GM/60 ML PO ONE
[2018-08-01] MEDS ORDERED: CALCIUM CHLORIDE 10%, 10ML SYR IVPush ONE
[2018-08-01] MEDS ORDERED: ALBUTEROL 0.5%, 20ML NPPB ONE
--- NOTE | 2018-08-01 00:01 | NUR ---
BS 225
--- NOTE | 2018-08-01 00:04 | NUR ---
PT IS VOMITING, SHAYNA FAY NOTIFIED.
--- NOTE | 2018-08-01 00:15 | NUR ---
DILTIAZEM DRIP ORDERED FROM PHARM
[2018-08-01] MEDS: DILTIAZEM 125 MG in SODIUM CHLORIDE 0.9% 100 ML IV SCH ×2 (00:39→13:00)
[2018-08-01 00:47] LABS: CULTURE INDICATED? YES; MICROSCOPIC AUTO
--- NOTE | 2018-08-01 01:01 | NUR ---
REPORT REC AT THIS TIME. PT REMAINS IN A FIB, RVR.
--- NOTE | 2018-08-01 01:22 | NUR ---
PT GIVEN BRENDAN PER REQUEST, STATES THAT HE WILL NOT EAT A TURKEY SANDWHICH, GIVEN ROAST BEEF SANDWHICH AT THIS TIME, WILL RECHECK SUGAR IN 30 MINUTES.
--- NOTE | 2018-08-01 01:27 | NUR ---
PT REFUSING KAYEXALATE, "IT TASTE LIKE DIRT", AWARE THAT THIS IS A LIFESAVING MEDICATION RELATED TO ELEVATED POTASSIUM.
--- NOTE | 2018-08-01 01:31 | NUR ---
PT REFUSE NEB AT THIS TIME.
[2018-08-01] MEDS ORDERED: DEXTROSE 50%, 50ML SYRINGE ONE (01:51)
--- NOTE | 2018-08-01 01:55 | NUR ---
FSBS 47, PT STATES THAT HE DOES NOT WANT TO EAT OR DRINK, DEXTROSE GIVEN IV. SECOND IV STARTED.
[2018-08-01] MEDS ORDERED: DEXTROSE 50%, 50ML SYRINGE IVPush ONE ×5 (02:30→23:00)
[2018-08-01 03:30] VITALS: BP 122/81
[2018-08-01] MEDS: SODIUM CHLORIDE FLUSH 10ML SYR IVF SCH ×3 (03:45→23:43)
[2018-08-01] MEDS: NICOTINE 21 MG/24 HR PATCH.TD24 TD SCH ×2 (04:00→21:22)
[2018-08-01] MEDS: METOLAZONE 2.5 MG TABLET PO SCH ×3 (04:00→21:16)
[2018-08-01] MEDS: HEPARIN 5,000 UNITS/ML, 1ML SQ SCH ×3 (05:45→21:16)
[2018-08-01] MEDS ORDERED: FUROSEMIDE 40 MG/4 ML IV SCH ×2 (07:30→17:00)
[2018-08-01] MEDS ORDERED: MAGNESIUM SULFATE PMX 2GM/50ML 50 ML IV ONE (08:00)
[2018-08-01 08:08] LABS: BASOPHILS # (AUTO) 0.01 x10^3/uL (0-0.1); BASOPHILS % (AUTO) 0 % (0-1); EOSINOPHILS # (AUTO) 0.01 x10^3/uL (0-0.4); EOSINOPHILS % (AUTO) 0 % (1-7); LYMPHOCYTES # (AUTO) 0.53 x10^3/uL (1-3.4); LYMPHOCYTES % (AUTO) 5 % (22-44); MD NO; MEAN CORPUSCULAR HEMOGLOBIN 27.5 pg (27.5-34.5); MEAN CORPUSCULAR HGB CONC 32.2 g/dL (33.2-36.2); MEAN CORPUSCULAR VOLUME 85.3 fL (81-97); MEAN PLATELET VOLUME 8.1 fL (7.4-10.4); MONOCYTES # (AUTO) 0.69 x10^3/uL (0.2-0.8); MONOCYTES % (AUTO) 7 % (2-9); NEUTROPHILS # (AUTO) 8.91 x10^3/uL (1.8-6.8); NEUTROPHILS % (AUTO) 88 % (42-75); PLATELET COUNT 365 x10^3/uL (130-400); RED BLOOD COUNT 3.54 x10^6/uL (4.38-5.82); RED CELL DISTRIBUTION WIDTH 18.5 % (9.4-14.8)
[2018-08-01 08:16] LABS: ALANINE AMINOTRANSFERASE 18 U/L (12-78); ALBUMIN 1.8 g/dL (3.4-5.0); ANION GAP 8 mmol/L (5-15); CALCIUM 8.1 mg/dL (8.5-10.1); CHLORIDE 119 mmol/L (98-107); CREATININE 4.47 mg/dL (0.7-1.3)
[2018-08-01 08:18] LABS: ALKALINE PHOSPHATASE 160 U/L (45-117); BILIRUBIN,TOTAL 0.2 mg/dL (0.2-1.0); TOTAL PROTEIN 6.1 g/dL (6.4-8.2)
[2018-08-01 08:20] VITALS: BP 141/84
[2018-08-01] MEDS ORDERED: SODIUM BICARB 8.4%, 50ML SYRINGE IVPush SCH (08:30)
[2018-08-01 08:42] LABS: TROPONIN I 0.252 ng/mL (0.000-0.045)
[2018-08-01] MEDS: METOPROLOL TARTRATE 50 MG TABLET PO SCH ×3 (08:57→21:16)
[2018-08-01] MEDS: ASPIRIN 325 MG TABLET EC PO SCH (08:58)
[2018-08-01] MEDS: OXYcodone IR 5MG TABLET PO PRN (08:58)
[2018-08-01] MEDS: SODIUM BICARBONATE 650 MG TABLET PO SCH ×4 (08:58→21:22)
[2018-08-01] MEDS: TAMSULOSIN 0.4 MG CAP.ER.24H PO SCH (08:58)
[2018-08-01] MEDS: SENNA/DOCUSATE TABLET PO SCH (09:00)
[2018-08-01] MEDS ORDERED: INSULIN REGULAR 100 UNITS/ML, 3ML VIAL IVPush ONE ×5 (09:30→23:00)
[2018-08-01] MEDS ORDERED: DEXTROSE 50%, 50ML VIAL IVPush ONE (09:30)
[2018-08-01] MEDS ORDERED: SODIUM POLYSTYRENE SULFONATE ORAL SUSP PO ONE (09:30)
[2018-08-01] MEDS ORDERED: LORazepam 2 MG/ML, 1ML IVPush PRN (10:30)
[2018-08-01] MEDS ORDERED: CALCIUM GLUCONATE 4.6 MEQ in SODIUM CHLORIDE 0.9% 50 ML IV ONE (10:30)
[2018-08-01] MEDS: MORPHINE SULFATE 4 MG/ML, 1ML IVPush PRN (10:41)
[2018-08-01] MEDS: PANTOPRAZOLE 40 MG IV IVPush SCH (11:10)
[2018-08-01 11:30] LABS: ANION GAP 8 mmol/L (5-15); CALCIUM 8.1 mg/dL (8.5-10.1); CHLORIDE 121 mmol/L (98-107); CREATININE 4.46 mg/dL (0.7-1.3)
[2018-08-01] MEDS: CEFTRIAXONE PMX 1GM/50ML 50 ML IV SCH (12:41)
[2018-08-01 14:30] VITALS: BP 123/76
[2018-08-01 14:58] LABS: ANION GAP 9 mmol/L (5-15); CALCIUM 8.1 mg/dL (8.5-10.1); CHLORIDE 121 mmol/L (98-107)
[2018-08-01 14:59] LABS: CREATININE 4.49 mg/dL (0.7-1.3)
[2018-08-01 18:28] LABS: ANION GAP 8 mmol/L (5-15); CALCIUM 8.1 mg/dL (8.5-10.1); CHLORIDE 120 mmol/L (98-107)
[2018-08-01 18:29] LABS: CREATININE 4.59 mg/dL (0.7-1.3)
[2018-08-01 19:00] VITALS: BP 136/78
[2018-08-01] MEDS ORDERED: INSULIN GLARGINE 100 UNITS/ML, PEN SQ-INSULIN SCH ×2 (21:00)
[2018-08-01 23:00] LABS: ANION GAP 6 mmol/L (5-15); CHLORIDE 119 mmol/L (98-107)
[2018-08-01 23:01] LABS: CREATININE 4.64 mg/dL (0.7-1.3)
[2018-08-02 01:46] VITALS: BP 119/72
[2018-08-02 03:17] LABS: ANION GAP 7 mmol/L (5-15); CHLORIDE 119 mmol/L (98-107); CREATININE 4.84 mg/dL (0.7-1.3)
[2018-08-02] MEDS ORDERED: INSULIN REGULAR 100 UNITS/ML, 3ML VIAL IVPush ONE ×4 (04:00→23:00)
[2018-08-02] MEDS ORDERED: DEXTROSE 50%, 50ML SYRINGE IVPush ONE ×4 (04:00→23:00)
[2018-08-02] MEDS: NICOTINE 21 MG/24 HR PATCH.TD24 TD SCH (04:21)
[2018-08-02] MEDS: HEPARIN 5,000 UNITS/ML, 1ML SQ SCH ×3 (04:21→20:26)
[2018-08-02 08:15] VITALS: BP 137/62
[2018-08-02 08:24] LABS: BASOPHILS # (AUTO) 0.01 x10^3/uL (0-0.1); BASOPHILS % (AUTO) 0 % (0-1); EOSINOPHILS # (AUTO) 0.08 x10^3/uL (0-0.4); EOSINOPHILS % (AUTO) 1 % (1-7); LYMPHOCYTES # (AUTO) 0.73 x10^3/uL (1-3.4); LYMPHOCYTES % (AUTO) 7 % (22-44); MD NO; MEAN CORPUSCULAR HEMOGLOBIN 27.1 pg (27.5-34.5); MEAN CORPUSCULAR VOLUME 84.6 fL (81-97); MEAN PLATELET VOLUME 8.2 fL (7.4-10.4); MONOCYTES # (AUTO) 0.78 x10^3/uL (0.2-0.8); MONOCYTES % (AUTO) 7 % (2-9); NEUTROPHILS % (AUTO) 85 % (42-75); PLATELET COUNT 371 x10^3/uL (130-400); RED BLOOD COUNT 3.29 x10^6/uL (4.38-5.82); RED CELL DISTRIBUTION WIDTH 19.2 % (9.4-14.8)
[2018-08-02 08:29] LABS: ALBUMIN 1.9 g/dL (3.4-5.0); ANION GAP 9 mmol/L (5-15); CALCIUM 7.9 mg/dL (8.5-10.1); CHLORIDE 117 mmol/L (98-107)
[2018-08-02 08:30] LABS: CREATININE 4.62 mg/dL (0.7-1.3)
[2018-08-02] MEDS: SENNA/DOCUSATE TABLET PO SCH (09:00)
[2018-08-02] MEDS: SODIUM CHLORIDE FLUSH 10ML SYR IVF SCH ×2 (09:00→20:15)
[2018-08-02] MEDS: SODIUM BICARBONATE 650 MG TABLET PO SCH ×3 (09:00→20:29)
[2018-08-02] MEDS: FUROSEMIDE 40 MG/4 ML IV SCH ×3 (09:25→20:15)
[2018-08-02] MEDS: PANTOPRAZOLE 40 MG IV IVPush SCH (09:25)
[2018-08-02] MEDS: TAMSULOSIN 0.4 MG CAP.ER.24H PO SCH (09:26)
[2018-08-02] MEDS: ASPIRIN 325 MG TABLET EC PO SCH (09:26)
[2018-08-02] MEDS: METOLAZONE 2.5 MG TABLET PO SCH ×2 (09:27→20:16)
[2018-08-02] MEDS: METOPROLOL TARTRATE 50 MG TABLET PO SCH ×2 (09:27→20:15)
[2018-08-02 10:22] LABS: ANION GAP 9 mmol/L (5-15); CALCIUM 7.8 mg/dL (8.5-10.1); CHLORIDE 117 mmol/L (98-107); CREATININE 4.71 mg/dL (0.7-1.3)
[2018-08-02] MEDS: CEFTRIAXONE PMX 1GM/50ML 50 ML IV SCH (12:12)
[2018-08-02 13:20] VITALS: BP 125/75
[2018-08-02 14:19] LABS: ANION GAP 9 mmol/L (5-15); CALCIUM 7.8 mg/dL (8.5-10.1); CHLORIDE 117 mmol/L (98-107); CREATININE 4.67 mg/dL (0.7-1.3)
[2018-08-02] MEDS: ONDANSETRON 4 MG TABLET PO PRN (18:28)
[2018-08-02 18:29] LABS: CALCIUM 7.7 mg/dL (8.5-10.1)
[2018-08-02 19:07] LABS: ANION GAP 9 mmol/L (5-15); CHLORIDE 117 mmol/L (98-107)
[2018-08-02] MEDS: MESALAMINE ENEMA 4 GM/60 ML ENEMA PR SCH (19:51)
[2018-08-02] MEDS: MORPHINE SULFATE 4 MG/ML, 1ML IVPush PRN (20:16)
[2018-08-02 20:30] VITALS: BP 154/71
[2018-08-02 22:46] LABS: ANION GAP 13 mmol/L (5-15); CALCIUM 7.6 mg/dL (8.5-10.1); CHLORIDE 114 mmol/L (98-107)
[2018-08-02 22:47] LABS: CREATININE 4.68 mg/dL (0.7-1.3)
[2018-08-03 02:27] VITALS: BP 124/75
[2018-08-03] MEDS: OXYcodone IR 5MG TABLET PO PRN (03:00)
[2018-08-03] MEDS: HEPARIN 5,000 UNITS/ML, 1ML SQ SCH ×3 (05:41→21:04)
[2018-08-03 06:05] LABS: BASOPHILS # (AUTO) 0.06 x10^3/uL (0-0.1); BASOPHILS % (AUTO) 1 % (0-1); EOSINOPHILS # (AUTO) 0.11 x10^3/uL (0-0.4); EOSINOPHILS % (AUTO) 1 % (1-7); LYMPHOCYTES # (AUTO) 0.95 x10^3/uL (1-3.4); LYMPHOCYTES % (AUTO) 12 % (22-44); MD NO; MEAN CORPUSCULAR HGB CONC 32.2 g/dL (33.2-36.2); MEAN CORPUSCULAR VOLUME 83.8 fL (81-97); MEAN PLATELET VOLUME 8.5 fL (7.4-10.4); MONOCYTES # (AUTO) 0.63 x10^3/uL (0.2-0.8); MONOCYTES % (AUTO) 8 % (2-9); NEUTROPHILS % (AUTO) 78 % (42-75); PLATELET COUNT 323 x10^3/uL (130-400); RED BLOOD COUNT 3.21 x10^6/uL (4.38-5.82); RED CELL DISTRIBUTION WIDTH 18.7 % (9.4-14.8)
[2018-08-03 06:12] LABS: ALBUMIN 1.7 g/dL (3.4-5.0); ANION GAP 10 mmol/L (5-15); CALCIUM 7.6 mg/dL (8.5-10.1); CHLORIDE 113 mmol/L (98-107); CREATININE 4.58 mg/dL (0.7-1.3)
[2018-08-03 06:15] LABS: ALBUMIN 1.7 g/dL (3.4-5.0); ANION GAP 7 mmol/L (5-15); CALCIUM 7.7 mg/dL (8.5-10.1); CHLORIDE 115 mmol/L (98-107)
[2018-08-03 06:19] LABS: ALANINE AMINOTRANSFERASE 15 U/L (12-78); ALKALINE PHOSPHATASE 143 U/L (45-117); BILIRUBIN,TOTAL 0.3 mg/dL (0.2-1.0); TOTAL PROTEIN 5.5 g/dL (6.4-8.2)
[2018-08-03 06:55] VITALS: BP 137/81
[2018-08-03] MEDS ORDERED: DEXTROSE 50%, 50ML SYRINGE IVPush ONE (07:30)
[2018-08-03] MEDS ORDERED: INSULIN REGULAR 100 UNITS/ML, 3ML VIAL IVPush ONE (07:30)
[2018-08-03] MEDS: SODIUM BICARBONATE 650 MG TABLET PO SCH ×2 (07:42→21:00)
[2018-08-03] MEDS: SENNA/DOCUSATE TABLET PO SCH (07:44)
[2018-08-03] MEDS: CEFDINIR 300 MG CAPSULE PO SCH (07:52)
[2018-08-03] MEDS: METOPROLOL TARTRATE 50 MG TABLET PO SCH ×2 (07:53→21:04)
[2018-08-03] MEDS: FUROSEMIDE 40 MG/4 ML IV SCH ×3 (07:53→21:03)
[2018-08-03] MEDS: ASPIRIN 325 MG TABLET EC PO SCH (07:53)
[2018-08-03] MEDS: TAMSULOSIN 0.4 MG CAP.ER.24H PO SCH (07:53)
[2018-08-03] MEDS: METOLAZONE 2.5 MG TABLET PO SCH ×2 (07:54→21:03)
[2018-08-03] MEDS: SODIUM CHLORIDE FLUSH 10ML SYR IVF SCH ×2 (07:54→21:05)
[2018-08-03] MEDS: PANTOPROZOLE 40MG TABLET PO SCH (07:56)
[2018-08-03] MEDS ORDERED: DOCUSATE 100 MG CAPSULE PO SCH (09:00)
[2018-08-03] MEDS ORDERED: ERGOCALCIFEROL 50,000 UNIT CAPSULE PO SCH (09:00)
[2018-08-03] MEDS: CALCITRIOL 0.25 MCG CAPSULE PO SCH (09:51)
[2018-08-03 12:15] LABS: ANION GAP 10 mmol/L (5-15); CALCIUM 7.6 mg/dL (8.5-10.1); CHLORIDE 113 mmol/L (98-107); CREATININE 4.66 mg/dL (0.7-1.3)
[2018-08-03] MEDS: ALBUTEROL SULFATE 2.5 MG/3 ML NEB PRN (12:15)
[2018-08-03 15:59] VITALS: BP 157/82
[2018-08-03 16:22] LABS: ANION GAP 9 mmol/L (5-15); CALCIUM 7.5 mg/dL (8.5-10.1); CHLORIDE 112 mmol/L (98-107); CREATININE 4.67 mg/dL (0.7-1.3)
[2018-08-03] MEDS ORDERED: MAGNESIUM HYDROXIDE 8%, 30ML UDC PO SCH (21:00)
[2018-08-03] MEDS: MESALAMINE ENEMA 4 GM/60 ML ENEMA PR SCH (21:00)
[2018-08-03 21:01] VITALS: BP 133/75
[2018-08-03] MEDS: NICOTINE 21 MG/24 HR PATCH.TD24 TD SCH (21:04)
[2018-08-03 21:39] LABS: ANION GAP 9 mmol/L (5-15); CALCIUM 7.3 mg/dL (8.5-10.1); CHLORIDE 112 mmol/L (98-107)
[2018-08-03 21:40] LABS: CREATININE 4.64 mg/dL (0.7-1.3)
[2018-08-04] MEDS: ALBUTEROL SULFATE 2.5 MG/3 ML NEB PRN (02:10)
[2018-08-04] MEDS: HEPARIN 5,000 UNITS/ML, 1ML SQ SCH ×3 (04:43→21:27)
[2018-08-04] MEDS: PANTOPROZOLE 40MG TABLET PO SCH (04:46)
[2018-08-04 05:33] VITALS: BP 151/78
[2018-08-04 06:13] LABS: CHLORIDE 110 mmol/L (98-107)
[2018-08-04 06:17] LABS: CALCIUM 7.5 mg/dL (8.5-10.1)
[2018-08-04 06:22] LABS: ANION GAP 10 mmol/L (5-15)
[2018-08-04 07:35] VITALS: BP 147/82
[2018-08-04] MEDS: CEFDINIR 300 MG CAPSULE PO SCH (08:30)
[2018-08-04] MEDS: CALCITRIOL 0.25 MCG CAPSULE PO SCH (08:30)
[2018-08-04] MEDS: METOPROLOL TARTRATE 50 MG TABLET PO SCH ×2 (08:31→21:26)
[2018-08-04] MEDS: FUROSEMIDE 40 MG/4 ML IV SCH ×3 (08:32→21:26)
[2018-08-04] MEDS: TAMSULOSIN 0.4 MG CAP.ER.24H PO SCH (08:32)
[2018-08-04] MEDS: ASPIRIN 325 MG TABLET EC PO SCH (08:32)
[2018-08-04] MEDS: SENNA/DOCUSATE TABLET PO SCH (08:32)
[2018-08-04] MEDS: SODIUM CHLORIDE FLUSH 10ML SYR IVF SCH ×2 (08:32→21:27)
[2018-08-04] MEDS: SODIUM BICARBONATE 650 MG TABLET PO SCH ×2 (08:33→21:25)
[2018-08-04] MEDS: METOLAZONE 2.5 MG TABLET PO SCH ×2 (08:36→21:26)
[2018-08-04] MEDS: OXYcodone IR 5MG TABLET PO PRN (08:45)
[2018-08-04] MEDS: ALBUTEROL SULFATE 2.5 MG/3 ML NPPB SCH ×3 (10:00→21:00)
[2018-08-04 13:09] LABS: ANION GAP 8 mmol/L (5-15); CALCIUM 7.6 mg/dL (8.5-10.1); CHLORIDE 110 mmol/L (98-107); CREATININE 4.48 mg/dL (0.7-1.3)
[2018-08-04 13:39] VITALS: BP 133/76
[2018-08-04 18:52] LABS: ANION GAP 13 mmol/L (5-15); CALCIUM 7.8 mg/dL (8.5-10.1); CHLORIDE 110 mmol/L (98-107); CREATININE 4.29 mg/dL (0.7-1.3)
[2018-08-04 19:04] VITALS: BP 161/88
[2018-08-04] MEDS: MESALAMINE ENEMA 4 GM/60 ML ENEMA PR SCH (21:25)
[2018-08-04] MEDS: NICOTINE 21 MG/24 HR PATCH.TD24 TD SCH (21:29)
[2018-08-04 23:02] LABS: ANION GAP 10 mmol/L (5-15); CALCIUM 7.5 mg/dL (8.5-10.1); CHLORIDE 111 mmol/L (98-107); CREATININE 4.23 mg/dL (0.7-1.3)
[2018-08-05] MEDS ORDERED: ALBUTEROL SULFATE 2.5 MG/3 ML NPPB PRN (01:30)
[2018-08-05 02:00] VITALS: BP 150/72
[2018-08-05] MEDS: OXYcodone IR 5MG TABLET PO PRN ×3 (03:25→14:36)
[2018-08-05] MEDS: PANTOPROZOLE 40MG TABLET PO SCH (05:02)
[2018-08-05] MEDS: HEPARIN 5,000 UNITS/ML, 1ML SQ SCH ×3 (05:03→21:09)
[2018-08-05 07:38] LABS: ALANINE AMINOTRANSFERASE 12 U/L (12-78); ALBUMIN 1.7 g/dL (3.4-5.0); ANION GAP 8 mmol/L (5-15); CALCIUM 7.6 mg/dL (8.5-10.1); CHLORIDE 108 mmol/L (98-107); CREATININE 4.06 mg/dL (0.7-1.3)
[2018-08-05 07:42] LABS: ALKALINE PHOSPHATASE 133 U/L (45-117); BILIRUBIN,TOTAL 0.1 mg/dL (0.2-1.0); PSA SCREEN 1.88 ng/mL (0.00-4.00); TOTAL PROTEIN 5.7 g/dL (6.4-8.2)
[2018-08-05 08:03] VITALS: BP 154/77
[2018-08-05 08:05] LABS: BASOPHILS # (AUTO) 0.03 x10^3/uL (0-0.1); BASOPHILS % (AUTO) 0 % (0-1); EOSINOPHILS # (AUTO) 0.18 x10^3/uL (0-0.4); EOSINOPHILS % (AUTO) 2 % (1-7); LYMPHOCYTES # (AUTO) 1.02 x10^3/uL (1-3.4); LYMPHOCYTES % (AUTO) 12 % (22-44); MD NO; MEAN CORPUSCULAR HEMOGLOBIN 26.8 pg (27.5-34.5); MEAN CORPUSCULAR HGB CONC 32.1 g/dL (33.2-36.2); MEAN CORPUSCULAR VOLUME 83.5 fL (81-97); MONOCYTES # (AUTO) 0.67 x10^3/uL (0.2-0.8); MONOCYTES % (AUTO) 8 % (2-9); NEUTROPHILS # (AUTO) 6.51 x10^3/uL (1.8-6.8); NEUTROPHILS % (AUTO) 77 % (42-75); PLATELET COUNT 399 x10^3/uL (130-400); RED BLOOD COUNT 3.53 x10^6/uL (4.38-5.82)
[2018-08-05] MEDS: SENNA/DOCUSATE TABLET PO SCH (09:00)
[2018-08-05] MEDS: SODIUM BICARBONATE 650 MG TABLET PO SCH ×3 (09:00→21:09)
[2018-08-05] MEDS: TAMSULOSIN 0.4 MG CAP.ER.24H PO SCH (09:21)
[2018-08-05] MEDS: METOLAZONE 2.5 MG TABLET PO SCH ×2 (09:21→21:08)
[2018-08-05] MEDS: CEFDINIR 300 MG CAPSULE PO SCH (09:21)
[2018-08-05] MEDS: FUROSEMIDE 40 MG/4 ML IV SCH ×2 (09:21→21:09)
[2018-08-05] MEDS: ASPIRIN 325 MG TABLET EC PO SCH (09:21)
[2018-08-05] MEDS: CALCITRIOL 0.25 MCG CAPSULE PO SCH (09:21)
[2018-08-05] MEDS: METOPROLOL TARTRATE 50 MG TABLET PO SCH ×2 (09:22→21:07)
[2018-08-05] MEDS: SODIUM CHLORIDE FLUSH 10ML SYR IVF SCH ×2 (09:23→21:10)
[2018-08-05 12:11] VITALS: BP 118/66
[2018-08-05] MEDS: ONDANSETRON 4 MG TABLET PO PRN (14:19)
[2018-08-05 20:26] VITALS: BP 130/74
[2018-08-05] MEDS: NICOTINE 21 MG/24 HR PATCH.TD24 TD SCH (21:09)
[2018-08-05] MEDS: MESALAMINE ENEMA 4 GM/60 ML ENEMA PR SCH (21:10)
[2018-08-06 00:37] VITALS: BP 143/84
[2018-08-06] MEDS: PANTOPROZOLE 40MG TABLET PO SCH (05:26)
[2018-08-06] MEDS: HEPARIN 5,000 UNITS/ML, 1ML SQ SCH ×2 (05:26→13:00)
[2018-08-06 06:35] LABS: BASOPHILS % (AUTO) 1 % (0-1); EOSINOPHILS % (AUTO) 4 % (1-7); LYMPHOCYTES # (AUTO) 1.66 x10^3/uL (1-3.4); LYMPHOCYTES % (AUTO) 19 % (22-44); MD NO; MEAN CORPUSCULAR HEMOGLOBIN 26.3 pg (27.5-34.5); MEAN CORPUSCULAR HGB CONC 31.7 g/dL (33.2-36.2); MEAN CORPUSCULAR VOLUME 83.1 fL (81-97); MEAN PLATELET VOLUME 8.6 fL (7.4-10.4); MONOCYTES # (AUTO) 0.59 x10^3/uL (0.2-0.8); MONOCYTES % (AUTO) 7 % (2-9); NEUTROPHILS % (AUTO) 69 % (42-75); PLATELET COUNT 441 x10^3/uL (130-400); RED BLOOD COUNT 3.85 x10^6/uL (4.38-5.82)
[2018-08-06 06:46] LABS: CHLORIDE 105 mmol/L (98-107)
[2018-08-06 06:53] LABS: ALANINE AMINOTRANSFERASE 11 U/L (12-78); ALBUMIN 1.7 g/dL (3.4-5.0); ALKALINE PHOSPHATASE 121 U/L (45-117); ANION GAP 9 mmol/L (5-15); BILIRUBIN,TOTAL 0.2 mg/dL (0.2-1.0); CALCIUM 7.6 mg/dL (8.5-10.1); CREATININE 3.66 mg/dL (0.7-1.3); TOTAL PROTEIN 5.9 g/dL (6.4-8.2)
[2018-08-06 08:25] VITALS: BP 162/86
[2018-08-06] MEDS: SODIUM BICARBONATE 650 MG TABLET PO SCH (08:27)
[2018-08-06] MEDS: SENNA/DOCUSATE TABLET PO SCH (08:27)
[2018-08-06] MEDS: FUROSEMIDE 40 MG/4 ML IV SCH (08:28)
[2018-08-06] MEDS: SODIUM CHLORIDE FLUSH 10ML SYR IVF SCH (08:28)
[2018-08-06] MEDS: CALCITRIOL 0.25 MCG CAPSULE PO SCH (08:29)
[2018-08-06] MEDS: METOLAZONE 2.5 MG TABLET PO SCH (08:29)
[2018-08-06] MEDS: CEFDINIR 300 MG CAPSULE PO SCH (08:29)
[2018-08-06] MEDS: OXYcodone IR 5MG TABLET PO PRN (08:29)
[2018-08-06] MEDS: TAMSULOSIN 0.4 MG CAP.ER.24H PO SCH (08:29)
[2018-08-06] MEDS: METOPROLOL TARTRATE 50 MG TABLET PO SCH (08:30)
[2018-08-06] MEDS: ASPIRIN 325 MG TABLET EC PO SCH (08:30)
[2018-08-06] MEDS ORDERED: ERGO500017 PO (13:21)
[2018-08-06] MEDS ORDERED: CEFD300C37 PO (13:21)
[2018-08-06] MEDS ORDERED: CALC0.25 PO (13:21)
[2018-08-06] MEDS ORDERED: PANT40TA5 PO (13:21)
[2018-08-06] MEDS ORDERED: FURO40TA6 PO (13:21)
[2018-08-06] MEDS ORDERED: SODI650T PO (13:21)
[2018-08-06] MEDS ORDERED: SEVE800T8 PO (13:26)
[2018-08-06] MEDS ORDERED: FUROSEMIDE 40 MG TABLET PO SCH (17:00)
== END 2018-08-06 15:35 | disposition home or self-care (01) | DRG 682 ==
LOC: ED 18:23 → EDIP 20:09 → 5SO 08-01 03:30 → 4EST 08-04 05:26 → DCLOUNGE 08-06 15:30
PROVIDERS: ADMIT Family Medicine; ATTEND Family Medicine
DX: N17.0 Acute kidney failure with tubular necrosis (principal); E43 Unspecified severe protein-calorie malnutrition; D68.59 Other primary thrombophilia; E87.2 Acidosis; I13.2 Hypertensive heart and chronic kidney disease with heart failure and with stage 5 chronic kidney disease, or end stage renal disease; J96.10 Chronic respiratory failure, unspecified whether with hypoxia or hypercapnia; J98.11 Atelectasis; N39.0 Urinary tract infection, site not specified; B96.20 Unspecified Escherichia coli [E. coli] as the cause of diseases classified elsewhere; N18.5 Chronic kidney disease, stage 5; D64.9 Anemia, unspecified; E11.21 Type 2 diabetes mellitus with diabetic nephropathy; E11.22 Type 2 diabetes mellitus with diabetic chronic kidney disease; E11.69 Type 2 diabetes mellitus with other specified complication; E83.39 Other disorders of phosphorus metabolism; E87.5 Hyperkalemia; F17.210 Nicotine dependence, cigarettes, uncomplicated; I25.10 Atherosclerotic heart disease of native coronary artery without angina pectoris; I45.81 Long QT syndrome; I48.0 Paroxysmal atrial fibrillation; I50.9 Heart failure, unspecified; J44.9 Chronic obstructive pulmonary disease, unspecified; N50.89 Other specified disorders of the male genital organs; Z79.4 Long term (current) use of insulin; Z68.28 Body mass index [BMI] 28.0-28.9, adult; I25.2 Old myocardial infarction; Z80.9 Family history of malignant neoplasm, unspecified; Z82.3 Family history of stroke; Z89.511 Acquired absence of right leg below knee; Z91.14 Patient's other noncompliance with medication regimen; Z90.49 Acquired absence of other specified parts of digestive tract; Z88.0 Allergy status to penicillin; Z88.2 Allergy status to sulfonamides; Z88.8 Allergy status to other drugs, medicaments and biological substances; Z91.013 Allergy to seafood
CPT/HCPCS: 36415; 99291; J7613; 71045; 74176; 76770; 80048; 80053; 80069; 81001; 82306; 82962; 83036; 83735; 83880; 83970; 84132; 84439; 84443; 84484; 85025; 87077; 87086; 87186; 93005; 93306; 94640; 96374; 96375; G0103; G0378; J0610; J0696; J1644; J1815; J1940; Q0162; C9113; J2060; J3475

== ENCOUNTER 2018-10-11 11:57 | Inpatient (IN) | payer MEDICAID ==
[~2018-10-11] VITALS: Ht 182.9 cm; Wt 97.0 kg
[~2018-10-11 11:57] MED LIST changes: +ALBU0.63 NEB; +CALC0.25 PO; +CALC667C PO; +CEFD300C37 PO; +FURO80TA77 PO; +INSU100I11 SQ-INSULIN; +INSU100I13 SQ-INSULIN; +METO10TA6 PO; -NITR0.4T SL; +NITR0.4T41 SL; +PANT40TA5 PO; +SEVE800T8 PO
[2018-10-11] MEDS ORDERED: MORPHINE SULFATE 4 MG/ML, 1ML ONE ×2 (12:15→14:28)
[2018-10-11] MEDS ORDERED: FAMOTIDINE 20 MG/2 ML ONE (12:15)
[2018-10-11] MEDS ORDERED: ONDANSETRON 2MG/ML, 2ML ONE (12:15)
[2018-10-11] MEDS: MORPHINE SULFATE 4 MG/ML, 1ML IVPush PRN ×2 (12:19→14:31)
[2018-10-11] MEDS ORDERED: FAMOTIDINE 20 MG/2 ML IVP ONE (12:30)
[2018-10-11] MEDS ORDERED: ONDANSETRON 2MG/ML, 2ML IVPush ONE (12:30)
[2018-10-11] MEDS ORDERED: SODIUM CHLORIDE FLUSH 10ML SYR IVF ONE (12:30)
[2018-10-11 12:38] LABS: BASOPHILS % (AUTO) 0 % (0-1); EOSINOPHILS % (AUTO) 2 % (1-7); LYMPHOCYTES # (AUTO) 1.17 x10^3/uL (1-3.4); LYMPHOCYTES % (AUTO) 11 % (22-44); MD NO; MEAN CORPUSCULAR HEMOGLOBIN 27.3 pg (27.5-34.5); MEAN CORPUSCULAR HGB CONC 31.6 g/dL (33.2-36.2); MEAN CORPUSCULAR VOLUME 86.6 fL (81-97); MEAN PLATELET VOLUME 8.7 fL (7.4-10.4); MONOCYTES # (AUTO) 0.73 x10^3/uL (0.2-0.8); MONOCYTES % (AUTO) 7 % (2-9); NEUTROPHILS # (AUTO) 8.88 x10^3/uL (1.8-6.8); NEUTROPHILS % (AUTO) 81 % (42-75); PLATELET COUNT 373 x10^3/uL (130-400); RED BLOOD COUNT 4.15 x10^6/uL (4.38-5.82); RED CELL DISTRIBUTION WIDTH 17.5 % (9.4-14.8)
[2018-10-11 12:39] LABS: PH, VENOUS 7.189 pH (7.320-7.420)
[2018-10-11 12:41] LABS: O2 FLOW ROOM AIR L/min
[2018-10-11 12:50] LABS: ALANINE AMINOTRANSFERASE 66 U/L (12-78); ALBUMIN 2.7 g/dL (3.4-5.0); ANION GAP 11 mmol/L (5-15); CALCIUM 7.4 mg/dL (8.5-10.1); CHLORIDE 114 mmol/L (98-107); CREATININE 4.18 mg/dL (0.7-1.3)
[2018-10-11 12:53] LABS: ACETONE, SERUM Small (20mg/dL) mg/dL (Negative)
[2018-10-11 12:55] LABS: ALKALINE PHOSPHATASE 280 U/L (45-117); BILIRUBIN,TOTAL 0.5 mg/dL (0.2-1.0); TOTAL PROTEIN 7.2 g/dL (6.4-8.2)
[2018-10-11 12:57] LABS: TROPONIN I 0.277 ng/mL (0.000-0.045)
[2018-10-11] MEDS ORDERED: DEXTROSE 50%, 50ML SYRINGE IVPush ONE (13:30)
[2018-10-11] MEDS ORDERED: CALCIUM CHLORIDE 10%, 10ML SYR IVPush ONE (13:30)
[2018-10-11] MEDS ORDERED: INSULIN REGULAR 100 UNITS/ML, 3ML VIAL IVPush ONE (13:30)
[2018-10-11] MEDS ORDERED: CALCIUM CHLORIDE 10%, 10ML SYR ONE (13:32)
--- NOTE | 2018-10-11 13:37 | NUR ---
Sent yellow slip to pharmacy to request medication per EMAR.
--- NOTE | 2018-10-11 13:43 | NUR ---
Pt transported on gurney to imaging. Pt not in ED room at this time.
--- NOTE | 2018-10-11 14:04 | NUR ---
Provided report to MARK Smith. All questions answered.
[2018-10-11] MEDS: SODIUM POLY SULFONATE UDC 15 GM/60 ML PO ONE ×2 (14:10→14:11)
[2018-10-11] MEDS: ERGOCALCIFEROL 50,000 UNIT CAPSULE PO SCH ×2 (14:30→20:42)
[2018-10-11] MEDS: NICOTINE 7 MG/24 HR PATCH.TD24 TD SCH (15:00)
[2018-10-11] MEDS ORDERED: ONDANSETRON 2MG/ML, 2ML IVPush PRN (15:00)
[2018-10-11] MEDS: HEPARIN 5,000 UNITS/ML, 1ML SQ SCH ×2 (15:00→23:20)
[2018-10-11] MEDS ORDERED: morphine SULFATE 10 MG/ML, 1ML IVPush PRN (15:00)
[2018-10-11] MEDS ORDERED: ACETAMINOPHEN 325 MG TABLET PO PRN (15:00)
[2018-10-11] MEDS ORDERED: hydrALAzine 20 MG/ML, 1ML IVPush PRN (15:00)
[2018-10-11 15:19] VITALS: BP 120/77
[2018-10-11] MEDS ORDERED: LORazepam 2 MG/ML, 1ML IVPush PRN (15:30)
[2018-10-11 15:36] LABS: HEMOGLOBIN A1C 6.8 % (4.2-6.3)
[2018-10-11] MEDS: INSULIN LISPRO 100 UNITS/ML, PEN SQ-INSULIN SCH ×2 (16:00→21:00)
[2018-10-11] MEDS: CALCIUM ACETATE 667 MG CAPSULE PO SCH (17:00)
[2018-10-11] MEDS ORDERED: CARVEDILOL 12.5 MG TABLET PO SCH (18:00)
[2018-10-11 18:35] LABS: MICROSCOPIC INDICATED
[2018-10-11 18:38] LABS: CULTURE INDICATED? YES
[2018-10-11 18:51] LABS: ANION GAP 11 mmol/L (5-15); CALCIUM 7.1 mg/dL (8.5-10.1); CHLORIDE 114 mmol/L (98-107); CREATININE 4.32 mg/dL (0.7-1.3)
[2018-10-11 18:55] LABS: TROPONIN I 0.319 ng/mL (0.000-0.045)
[2018-10-11] MEDS ORDERED: FUROSEMIDE 80 MG TABLET PO SCH (19:36)
[2018-10-11] MEDS ORDERED: FUROSEMIDE 100 MG/10 ML IV SCH ×3 (19:38→21:00)
[2018-10-11] MEDS ORDERED: FUROSEMIDE 40 MG/4 ML IV SCH (20:30)
[2018-10-11 20:42] VITALS: BP 125/89
[2018-10-11] MEDS: SODIUM BICARBONATE 650 MG TABLET PO SCH (20:42)
[2018-10-12 00:57] LABS: TROPONIN I 0.293 ng/mL (0.000-0.045)
[2018-10-12] MEDS ORDERED: LIDOCAINE 2%,20 ML JEL.PF.APP MM ONE (01:25)
[2018-10-12] MEDS ORDERED: LIDOCAINE JELLY 2%, 30GM TP ONE (01:30)
[2018-10-12 01:34] VITALS: BP 94/62
[2018-10-12] MEDS ORDERED: LIDOCAINE JELLY 2%, 30GM TP PRN (05:00)
[2018-10-12] MEDS ORDERED: FUROSEMIDE 100 MG/10 ML IV SCH (06:00)
[2018-10-12 07:15] VITALS: BP 111/80
[2018-10-12] MEDS: INSULIN LISPRO 100 UNITS/ML, PEN SQ-INSULIN SCH ×4 (08:22→20:44)
[2018-10-12] MEDS: FUROSEMIDE 40 MG/4 ML IV SCH ×2 (08:23→16:28)
[2018-10-12] MEDS: CARVEDILOL 12.5 MG TABLET PO SCH ×2 (08:23→16:27)
[2018-10-12] MEDS: TAMSULOSIN 0.4 MG CAP.ER.24H PO SCH (08:24)
[2018-10-12] MEDS: CALCIUM ACETATE 667 MG CAPSULE PO SCH ×3 (08:24→16:27)
[2018-10-12] MEDS: SODIUM BICARBONATE 650 MG TABLET PO SCH ×3 (08:26→20:44)
[2018-10-12 08:28] LABS: ALBUMIN 2.3 g/dL (3.4-5.0); ANION GAP 11 mmol/L (5-15); CALCIUM 7.2 mg/dL (8.5-10.1); CHLORIDE 117 mmol/L (98-107)
[2018-10-12 08:30] LABS: BASOPHILS # (AUTO) 0.02 x10^3/uL (0-0.1); BASOPHILS % (AUTO) 0 % (0-1); EOSINOPHILS % (AUTO) 4 % (1-7); LYMPHOCYTES # (AUTO) 1.19 x10^3/uL (1-3.4); LYMPHOCYTES % (AUTO) 22 % (22-44); MD NO; MEAN CORPUSCULAR HEMOGLOBIN 26.4 pg (27.5-34.5); MEAN CORPUSCULAR HGB CONC 30.6 g/dL (33.2-36.2); MEAN CORPUSCULAR VOLUME 86.1 fL (81-97); MEAN PLATELET VOLUME 8.7 fL (7.4-10.4); MONOCYTES # (AUTO) 0.46 x10^3/uL (0.2-0.8); MONOCYTES % (AUTO) 8 % (2-9); NEUTROPHILS # (AUTO) 3.59 x10^3/uL (1.8-6.8); NEUTROPHILS % (AUTO) 66 % (42-75); PLATELET COUNT 282 x10^3/uL (130-400); RED BLOOD COUNT 3.59 x10^6/uL (4.38-5.82); RED CELL DISTRIBUTION WIDTH 17.5 % (9.4-14.8)
[2018-10-12 08:31] LABS: ALANINE AMINOTRANSFERASE 53 U/L (12-78); ALKALINE PHOSPHATASE 221 U/L (45-117); BILIRUBIN,TOTAL 0.4 mg/dL (0.2-1.0); CREATININE 4.27 mg/dL (0.7-1.3)
[2018-10-12] MEDS: HEPARIN 5,000 UNITS/ML, 1ML SQ SCH ×3 (08:32→23:30)
[2018-10-12] MEDS ORDERED: ASPIRIN 325 MG TABLET EC PO SCH (09:00)
[2018-10-12] MEDS ORDERED: DIGOXIN 0.25 MG/ML, 2ML IVPush ONE (09:30)
[2018-10-12] MEDS ORDERED: SODIUM POLYSTYRENE SULFONATE ORAL SUSP PO ONE (10:30)
[2018-10-12 12:37] VITALS: BP 116/84
[2018-10-12] MEDS: NICOTINE 7 MG/24 HR PATCH.TD24 TD SCH (16:19)
[2018-10-12 19:16] VITALS: BP 132/73
[2018-10-13 03:55] VITALS: BP 103/69
[2018-10-13 04:54] LABS: BASOPHILS # (AUTO) 0.05 x10^3/uL (0-0.1); BASOPHILS % (AUTO) 1 % (0-1); EOSINOPHILS # (AUTO) 0.27 x10^3/uL (0-0.4); EOSINOPHILS % (AUTO) 4 % (1-7); LYMPHOCYTES # (AUTO) 1.44 x10^3/uL (1-3.4); LYMPHOCYTES % (AUTO) 23 % (22-44); MD NO; MEAN CORPUSCULAR HEMOGLOBIN 27.3 pg (27.5-34.5); MEAN CORPUSCULAR HGB CONC 31.6 g/dL (33.2-36.2); MEAN CORPUSCULAR VOLUME 86.5 fL (81-97); MONOCYTES # (AUTO) 0.44 x10^3/uL (0.2-0.8); MONOCYTES % (AUTO) 7 % (2-9); NEUTROPHILS # (AUTO) 4.13 x10^3/uL (1.8-6.8); NEUTROPHILS % (AUTO) 65 % (42-75); PLATELET COUNT 269 x10^3/uL (130-400); RED BLOOD COUNT 3.51 x10^6/uL (4.38-5.82); RED CELL DISTRIBUTION WIDTH 17.9 % (9.4-14.8)
[2018-10-13 05:02] LABS: CALCIUM 6.7 mg/dL (8.5-10.1); CHLORIDE 111 mmol/L (98-107)
[2018-10-13 05:11] LABS: % IRON SATURATION 11 % (20-55); ALANINE AMINOTRANSFERASE 47 U/L (12-78); ALBUMIN 2.1 g/dL (3.4-5.0); ALKALINE PHOSPHATASE 197 U/L (45-117); ANION GAP 12 mmol/L (5-15); BILIRUBIN,TOTAL 0.2 mg/dL (0.2-1.0); CREATININE 4.35 mg/dL (0.7-1.3); IRON LEVEL 28 mcg/dL (65-175); TOTAL IRON BINDING CAPACITY 254 mcg/dL (250-450); TOTAL PROTEIN 5.9 g/dL (6.4-8.2)
[2018-10-13] MEDS: HEPARIN 5,000 UNITS/ML, 1ML SQ SCH ×2 (07:30→17:47)
[2018-10-13 07:31] VITALS: BP 132/77
[2018-10-13] MEDS: CALCIUM ACETATE 667 MG CAPSULE PO SCH ×3 (08:00→17:46)
[2018-10-13] MEDS: INSULIN LISPRO 100 UNITS/ML, PEN SQ-INSULIN SCH ×4 (08:23→20:04)
[2018-10-13] MEDS ORDERED: VANCOMYCIN PMX 1GM/200ML 200 ML IV ONE ×2 (08:44→19:00)
[2018-10-13] MEDS: FUROSEMIDE 40 MG/4 ML IV SCH ×2 (08:48→17:46)
[2018-10-13] MEDS: TAMSULOSIN 0.4 MG CAP.ER.24H PO SCH (08:48)
[2018-10-13] MEDS: CARVEDILOL 12.5 MG TABLET PO SCH ×2 (08:49→17:46)
[2018-10-13] MEDS ORDERED: MAGNESIUM SULFATE PMX 2GM/50ML 50 ML IV ONE (09:00)
[2018-10-13] MEDS ORDERED: LIDOCAINE-MPF 1%, 5ML ONE ×2 (10:48)
[2018-10-13] MEDS ORDERED: FLUMAZENIL 0.1 MG/1 ML, 5ML ONE (10:59)
[2018-10-13] MEDS ORDERED: FENTANYL PF 100 MCG/2ML ONE (10:59)
[2018-10-13] MEDS ORDERED: MIDAZOLAM 1 MG/ML, 5ML ONE (10:59)
[2018-10-13] MEDS ORDERED: NALOXONE 1 MG/ML, 2ML ONE (11:00)
[2018-10-13] MEDS: SODIUM BICARBONATE 650 MG TABLET PO SCH (12:13)
[2018-10-13 12:51] VITALS: BP 98/63
[2018-10-13] MEDS: NICOTINE 7 MG/24 HR PATCH.TD24 TD SCH (15:00)
[2018-10-13] MEDS ORDERED: VANCOMYCIN PER PHARMACY MC PRN (19:00)
[2018-10-13 19:21] VITALS: BP 120/87
[2018-10-13] MEDS ORDERED: PHARMACOKINETIC CONSULTATION MC ONE (19:30)
[2018-10-13] MEDS ORDERED: VANCOMYCIN PMX 1GM/200ML 200 ML IVPB ONE (19:30)
[2018-10-13] MEDS ORDERED: PHARMACOKINETIC MONITORING MC PRN (19:30)
[2018-10-14] VITALS (7 sets, daily range): BP systolic 93–120; BP diastolic 55–80
[2018-10-14] MEDS: HEPARIN 5,000 UNITS/ML, 1ML SQ SCH ×3 (01:10→18:24)
[2018-10-14] MEDS: MORPHINE SULFATE 4 MG/ML, 1ML IVPush PRN ×3 (01:10→20:14)
[2018-10-14] MEDS: INSULIN LISPRO 100 UNITS/ML, PEN SQ-INSULIN SCH ×4 (07:45→22:11)
[2018-10-14] MEDS: TAMSULOSIN 0.4 MG CAP.ER.24H PO SCH (08:50)
[2018-10-14] MEDS: CALCITRIOL 0.25 MCG CAPSULE PO SCH (08:50)
[2018-10-14] MEDS: FUROSEMIDE 40 MG/4 ML IV SCH (08:51)
[2018-10-14] MEDS: CARVEDILOL 12.5 MG TABLET PO SCH ×2 (08:51→17:00)
[2018-10-14] MEDS: CALCIUM ACETATE 667 MG CAPSULE PO SCH ×3 (08:51→18:26)
[2018-10-14] MEDS ORDERED: DILTIAZEM 5 MG/ML, 5ML IVPush ONE ×2 (12:00→14:00)
[2018-10-14 12:40] LABS: ANION GAP 8 mmol/L (5-15); CALCIUM 6.2 mg/dL (8.5-10.1); CHLORIDE 106 mmol/L (98-107); CREATININE 4.03 mg/dL (0.7-1.3)
[2018-10-14] MEDS: NICOTINE 7 MG/24 HR PATCH.TD24 TD SCH (15:00)
[2018-10-14] MEDS: DILTIAZEM 60 MG TABLET PO SCH ×2 (15:19→22:10)
[2018-10-14] MEDS ORDERED: DILTIAZEM 30 MG TABLET PO ONE (17:30)
[2018-10-15 00:22] VITALS: BP 113/67
[2018-10-15] MEDS: MORPHINE SULFATE 4 MG/ML, 1ML IVPush PRN ×4 (02:15→21:14)
[2018-10-15] MEDS: HEPARIN 5,000 UNITS/ML, 1ML SQ SCH ×3 (02:15→17:45)
[2018-10-15 04:17] VITALS: BP 101/66
[2018-10-15] MEDS: DILTIAZEM 60 MG TABLET PO SCH ×4 (04:17→21:14)
[2018-10-15 07:46] VITALS: BP 120/68
[2018-10-15] MEDS: INSULIN LISPRO 100 UNITS/ML, PEN SQ-INSULIN SCH ×4 (08:14→20:42)
[2018-10-15] MEDS ORDERED: VANCOMYCIN 2,000 MG in SODIUM CHLORIDE 0.9% 500 ML IV ONE (09:30)
[2018-10-15] MEDS: CALCITRIOL 0.25 MCG CAPSULE PO SCH (11:40)
[2018-10-15] MEDS: CARVEDILOL 12.5 MG TABLET PO SCH ×2 (11:41→17:46)
[2018-10-15] MEDS: CALCIUM ACETATE 667 MG CAPSULE PO SCH ×3 (11:41→17:46)
[2018-10-15] MEDS: TAMSULOSIN 0.4 MG CAP.ER.24H PO SCH (11:42)
[2018-10-15 13:50] VITALS: BP 91/60
[2018-10-15] MEDS ORDERED: DILTIAZEM 60 MG TABLET PO SCH (15:00)
[2018-10-15] MEDS ORDERED: BISACODYL 10 MG SUPP PR PRN (15:00)
[2018-10-15] MEDS: NICOTINE 7 MG/24 HR PATCH.TD24 TD SCH (15:00)
[2018-10-15 16:40] LABS: TROPONIN I 0.248 ng/mL (0.000-0.045)
[2018-10-15 18:32] VITALS: BP 98/64
[2018-10-15] MEDS ORDERED: DILTIAZEM 60 MG TABLET PO ONE (21:00)
[2018-10-16 00:41] VITALS: BP 88/58
[2018-10-16] MEDS: HEPARIN 5,000 UNITS/ML, 1ML SQ SCH ×2 (02:00→13:05)
[2018-10-16] MEDS: MORPHINE SULFATE 4 MG/ML, 1ML IVPush PRN ×2 (02:40→23:04)
[2018-10-16] MEDS: DILTIAZEM 60 MG TABLET PO SCH ×3 (02:54→15:01)
[2018-10-16] MEDS: INSULIN LISPRO 100 UNITS/ML, PEN SQ-INSULIN SCH ×4 (07:00→21:24)
[2018-10-16] MEDS: CARVEDILOL 12.5 MG TABLET PO SCH ×2 (07:30→21:24)
[2018-10-16 08:24] VITALS: BP 113/75
[2018-10-16] MEDS: CALCITRIOL 0.25 MCG CAPSULE PO SCH (08:45)
[2018-10-16] MEDS: CALCIUM ACETATE 667 MG CAPSULE PO SCH ×3 (08:45→16:59)
[2018-10-16] MEDS: TAMSULOSIN 0.4 MG CAP.ER.24H PO SCH (08:45)
[2018-10-16] MEDS ORDERED: DIGOXIN 0.25 MG/ML, 2ML IVPush ONE (09:00)
[2018-10-16 12:00] VITALS: BP 161/101
[2018-10-16] MEDS ORDERED: DILTIAZEM 5 MG/ML, 5ML IVPush ONE (12:00)
[2018-10-16 13:15] VITALS: BP 121/78
[2018-10-16 14:53] VITALS: BP 143/87
[2018-10-16] MEDS: NICOTINE 7 MG/24 HR PATCH.TD24 TD SCH (15:00)
[2018-10-16] MEDS ORDERED: AMIODARONE 150 MG in DEXTROSE 5% 100 ML IV ONE (15:30)
[2018-10-16] MEDS ORDERED: AMIODARONE 900 MG in DEXTROSE 5% 482 ML IV PRN (16:00)
[2018-10-16] MEDS: AMIODARONE IN D5W 200 ML IV PRN ×2 (16:21→21:25)
[2018-10-16] MEDS: FILTER 0.22 MICRON IV PRN (16:21)
[2018-10-16 19:48] VITALS: BP 117/66
[2018-10-16] MEDS ORDERED: DILTIAZEM 60 MG TABLET PO SCH (21:00)
[2018-10-16] MEDS: APIXABAN 2.5 MG TABLET PO SCH (21:23)
[2018-10-17] MEDS: CARVEDILOL 12.5 MG TABLET PO SCH ×3 (06:24→20:19)
[2018-10-17 07:00] VITALS: BP 119/83
[2018-10-17] MEDS: INSULIN LISPRO 100 UNITS/ML, PEN SQ-INSULIN SCH ×4 (07:00→20:18)
[2018-10-17] MEDS: CALCIUM ACETATE 667 MG CAPSULE PO SCH ×3 (08:00→16:54)
[2018-10-17 08:36] LABS: ANION GAP 7 mmol/L (5-15); CALCIUM 6.8 mg/dL (8.5-10.1); CHLORIDE 105 mmol/L (98-107); CREATININE 2.69 mg/dL (0.7-1.3)
[2018-10-17] MEDS ORDERED: AMIODARONE IN D5W 100 ML IV ONE (09:00)
[2018-10-17] MEDS ORDERED: AMIODARONE 150MG/100ML PREMIX IV ONE ×2 (09:00→11:00)
[2018-10-17 09:02] LABS: MEAN CORPUSCULAR HEMOGLOBIN 27.2 pg (27.5-34.5); MEAN CORPUSCULAR HGB CONC 31.6 g/dL (33.2-36.2); MEAN PLATELET VOLUME 8.5 fL (7.4-10.4); PLATELET COUNT 99 x10^3/uL (130-400); RED BLOOD COUNT 3.36 x10^6/uL (4.38-5.82); RED CELL DISTRIBUTION WIDTH 18.5 % (9.4-14.8)
[2018-10-17 09:05] LABS: BASOPHILS # (AUTO) 0.02 x10^3/uL (0-0.1); BASOPHILS % (AUTO) 1 % (0-1); EOSINOPHILS # (AUTO) 0.23 x10^3/uL (0-0.4); EOSINOPHILS % (AUTO) 6 % (1-7); LYMPHOCYTES # (AUTO) 1.23 x10^3/uL (1-3.4); LYMPHOCYTES % (AUTO) 32 % (22-44); MD MORPH REVIEW ONLY; MONOCYTES # (AUTO) 0.35 x10^3/uL (0.2-0.8); MONOCYTES % (AUTO) 9 % (2-9); NEUTROPHILS # (AUTO) 2.08 x10^3/uL (1.8-6.8); NEUTROPHILS % (AUTO) 53 % (42-75)
[2018-10-17 09:06] LABS: ANISOCYTOSIS 1+; OVALOCYTES 1+
[2018-10-17 09:07] LABS: <PLATELET ESTIMATE> DECREASED; <PLT MORPHOLOGY> NORMAL PLT MORPH; HYPOCHROMIA 1+; TARGET CELLS 1+
[2018-10-17] MEDS: AMIODARONE IN D5W 200 ML IV PRN ×2 (09:11→21:47)
[2018-10-17] MEDS: FILTER 0.22 MICRON IV PRN (09:28)
[2018-10-17] MEDS ORDERED: VANCOMYCIN 2,000 MG in SODIUM CHLORIDE 0.9% 500 ML IV SCH (12:00)
[2018-10-17] MEDS: APIXABAN 2.5 MG TABLET PO SCH ×2 (12:03→20:19)
[2018-10-17] MEDS: CALCITRIOL 0.25 MCG CAPSULE PO SCH (12:03)
[2018-10-17] MEDS: TAMSULOSIN 0.4 MG CAP.ER.24H PO SCH (12:03)
[2018-10-17] MEDS: MORPHINE SULFATE 4 MG/ML, 1ML IVPush PRN ×2 (12:04→20:19)
[2018-10-17 14:08] VITALS: BP 124/87
[2018-10-17] MEDS: NICOTINE 7 MG/24 HR PATCH.TD24 TD SCH (14:14)
[2018-10-17] MEDS ORDERED: AMIODARONE 150 MG in DEXTROSE 5% 100 ML IV ONE (17:30)
[2018-10-17 19:39] VITALS: BP 114/73
[2018-10-18] MEDS: INSULIN LISPRO 100 UNITS/ML, PEN SQ-INSULIN SCH ×4 (07:00→20:17)
[2018-10-18 07:19] LABS: CHLORIDE 106 mmol/L (98-107)
[2018-10-18 07:28] LABS: MEAN CORPUSCULAR HEMOGLOBIN 27.2 pg (27.5-34.5); MEAN CORPUSCULAR HGB CONC 31.7 g/dL (33.2-36.2); MEAN CORPUSCULAR VOLUME 85.6 fL (81-97); RED BLOOD COUNT 3.63 x10^6/uL (4.38-5.82); RED CELL DISTRIBUTION WIDTH 18.9 % (9.4-14.8)
[2018-10-18 07:30] LABS: ALANINE AMINOTRANSFERASE 35 U/L (12-78); ALKALINE PHOSPHATASE 173 U/L (45-117); ANION GAP 6 mmol/L (5-15); BILIRUBIN,TOTAL 0.2 mg/dL (0.2-1.0); CREATININE 2.87 mg/dL (0.7-1.3); TOTAL PROTEIN 5.8 g/dL (6.4-8.2)
[2018-10-18 08:17] LABS: BASOPHILS # (AUTO) 0.03 x10^3/uL (0-0.1); BASOPHILS % (AUTO) 1 % (0-1); EOSINOPHILS # (AUTO) 0.31 x10^3/uL (0-0.4); EOSINOPHILS % (AUTO) 6 % (1-7); LYMPHOCYTES # (AUTO) 1.44 x10^3/uL (1-3.4); LYMPHOCYTES % (AUTO) 28 % (22-44); MD SCAN; MEAN PLATELET VOLUME 8.7 fL (7.4-10.4); MONOCYTES # (AUTO) 0.62 x10^3/uL (0.2-0.8); MONOCYTES % (AUTO) 12 % (2-9); NEUTROPHILS # (AUTO) 2.73 x10^3/uL (1.8-6.8); NEUTROPHILS % (AUTO) 53 % (42-75); PLATELET COUNT 83 x10^3/uL (130-400)
[2018-10-18] MEDS ORDERED: AMIODARONE 50 MG/ML, 3ML IVPush ONE (09:00)
[2018-10-18] MEDS ORDERED: AMIODARONE 150 MG in DEXTROSE 5% 100 ML IV ONE (09:00)
[2018-10-18] MEDS: CALCIUM ACETATE 667 MG CAPSULE PO SCH ×3 (09:07→17:46)
[2018-10-18] MEDS: APIXABAN 2.5 MG TABLET PO SCH ×2 (09:07→20:04)
[2018-10-18] MEDS: CARVEDILOL 12.5 MG TABLET PO SCH (09:07)
[2018-10-18] MEDS: TAMSULOSIN 0.4 MG CAP.ER.24H PO SCH (09:07)
[2018-10-18] MEDS: CALCITRIOL 0.25 MCG CAPSULE PO SCH (09:07)
[2018-10-18] MEDS: AMIODARONE IN D5W 200 ML IV PRN ×2 (09:15→22:35)
[2018-10-18] MEDS: FILTER 0.22 MICRON IV PRN (09:16)
[2018-10-18 09:40] VITALS: BP 115/83
[2018-10-18 13:37] VITALS: BP 124/83
[2018-10-18] MEDS: NICOTINE 7 MG/24 HR PATCH.TD24 TD SCH (15:00)
[2018-10-18] MEDS: ERGOCALCIFEROL 50,000 UNIT CAPSULE PO SCH (15:03)
[2018-10-18 19:03] VITALS: BP 112/77
[2018-10-18] MEDS: CARVEDILOL 25 MG TABLET PO SCH (20:04)
[2018-10-19] MEDS ORDERED: NITROGLYCERIN 0.4 MG/SPRAY SL PRN (02:30)
[2018-10-19 02:31] VITALS: BP 120/83
[2018-10-19] MEDS: NITROGLYCERIN 0.4 MG BOTTLE (25 TABS) SL PRN ×2 (02:42→02:47)
[2018-10-19 02:45] VITALS: BP 97/64
[2018-10-19 02:51] VITALS: BP 92/62
[2018-10-19] MEDS: MORPHINE SULFATE 4 MG/ML, 1ML IVPush PRN (02:55)
[2018-10-19] MEDS: INSULIN LISPRO 100 UNITS/ML, PEN SQ-INSULIN SCH ×2 (07:07→11:56)
[2018-10-19] MEDS: CALCIUM ACETATE 667 MG CAPSULE PO SCH ×3 (09:34→17:45)
[2018-10-19] MEDS: CALCITRIOL 0.25 MCG CAPSULE PO SCH (09:37)
[2018-10-19] MEDS: APIXABAN 2.5 MG TABLET PO SCH ×2 (09:38→21:26)
[2018-10-19] MEDS: AMIODARONE 200 MG TABLET PO SCH (09:38)
[2018-10-19] MEDS: CARVEDILOL 25 MG TABLET PO SCH ×2 (09:38→17:55)
[2018-10-19] MEDS: TAMSULOSIN 0.4 MG CAP.ER.24H PO SCH (09:38)
[2018-10-19 09:42] VITALS: BP 112/84
[2018-10-19] MEDS: SODIUM CHLORIDE NASAL SPRAY 45ML BOTTLE NAS PRN (09:42)
[2018-10-19] MEDS ORDERED: EPHEDRINE 50 MG/ML, 1ML ONE (11:26)
[2018-10-19] MEDS ORDERED: PROPOFOL 10 MG/ML, 20ML ONE (11:26)
[2018-10-19] MEDS ORDERED: EPINEPHRINE 1 MG/ML, 1ML ONE ×2 (11:26→13:56)
[2018-10-19] MEDS ORDERED: FUROSEMIDE 100 MG/10 ML IV ONE (12:30)
[2018-10-19] MEDS ORDERED: EPINEPHRINE SYRINGE 0.1 MG/ML, 10ML ONE (13:55)
[2018-10-19] MEDS: NICOTINE 7 MG/24 HR PATCH.TD24 TD SCH (14:52)
[2018-10-19] MEDS: EPINEPHRINE 2 MG in SODIUM CHLORIDE 0.9% 248 ML IV PRN ×2 (15:20→19:43)
[2018-10-19] MEDS ORDERED: FENTANYL PF 100 MCG/2ML ONE (17:10)
[2018-10-19 17:13] LABS: BASOPHILS # (AUTO) 0.03 x10^3/uL (0-0.1); BASOPHILS % (AUTO) 1 % (0-1); EOSINOPHILS # (AUTO) 0.28 x10^3/uL (0-0.4); EOSINOPHILS % (AUTO) 4 % (1-7); LYMPHOCYTES # (AUTO) 1.21 x10^3/uL (1-3.4); LYMPHOCYTES % (AUTO) 18 % (22-44); MD NO; MEAN CORPUSCULAR HEMOGLOBIN 27.1 pg (27.5-34.5); MEAN CORPUSCULAR HGB CONC 31.4 g/dL (33.2-36.2); MEAN CORPUSCULAR VOLUME 86.3 fL (81-97); MEAN PLATELET VOLUME 9.3 fL (7.4-10.4); MONOCYTES # (AUTO) 0.64 x10^3/uL (0.2-0.8); MONOCYTES % (AUTO) 10 % (2-9); NEUTROPHILS # (AUTO) 4.52 x10^3/uL (1.8-6.8); NEUTROPHILS % (AUTO) 68 % (42-75); PLATELET COUNT 117 x10^3/uL (130-400); RED BLOOD COUNT 3.35 x10^6/uL (4.38-5.82); RED CELL DISTRIBUTION WIDTH 18.6 % (9.4-14.8)
[2018-10-19] MEDS ORDERED: FENTANYL PF 100 MCG/2ML IVPush ONE (17:15)
[2018-10-19 17:16] LABS: INTERNATIONAL NORMALIZED RATIO 1.12 (0.93-1.1); PROTHROMBIN TIME 11.7 Seconds (9.6-11.5)
[2018-10-19 17:17] LABS: ALANINE AMINOTRANSFERASE 54 U/L (12-78); ALBUMIN 1.9 g/dL (3.4-5.0); ANION GAP 8 mmol/L (5-15); CALCIUM 6.4 mg/dL (8.5-10.1); CHLORIDE 110 mmol/L (98-107)
[2018-10-19] MEDS ORDERED: DOPAMINE/D5W PMX 250 ML IV PRN ×2 (17:17→17:30)
[2018-10-19] MEDS ORDERED: ROCURONIUM 10 MG/ML,10ML IVPush ONE (17:18)
[2018-10-19] MEDS ORDERED: ETOMIDATE 20 MG/10 ML IVPush ONE (17:18)
[2018-10-19 17:19] LABS: ALKALINE PHOSPHATASE 176 U/L (45-117); BILIRUBIN,TOTAL 0.2 mg/dL (0.2-1.0); TOTAL PROTEIN 5.1 g/dL (6.4-8.2)
[2018-10-19] MEDS ORDERED: SENNA 176 MG/5 ML ORAL SOL NG PRN (17:30)
[2018-10-19] MEDS ORDERED: PHARMACY MAY ADJ FOR RENAL FX MC SCH (17:30)
[2018-10-19] MEDS ORDERED: SODIUM CHLORIDE 0.9%, 500ML IV ONE (17:30)
[2018-10-19] MEDS ORDERED: LACTULOSE 20 GM/30 ML UDC NG PRN (17:30)
[2018-10-19] MEDS ORDERED: LIDOCAINE-MPF 1%, 2ML ENDO PRN (17:30)
[2018-10-19] MEDS ORDERED: DEXTROSE 50%, 50ML SYRINGE IVPush PRN (17:30)
[2018-10-19] MEDS ORDERED: DEXTROSE 4 GM TAB.CHEW PO PRN (17:30)
[2018-10-19] MEDS ORDERED: GLUCAGON 1 MG IM PRN (17:30)
[2018-10-19] MEDS ORDERED: BISACODYL 10 MG SUPP PR PRN (17:30)
[2018-10-19 18:16] LABS: INTERNATIONAL NORMALIZED RATIO 1.02 (0.93-1.1); PROTHROMBIN TIME 10.7 Seconds (9.6-11.5)
[2018-10-19] MEDS: DOBUTAMINE/D5W PMX 250 ML IV PRN (18:18)
[2018-10-19 18:25] LABS: TROPONIN I 0.249 ng/mL (0.000-0.045)
[2018-10-19 18:43] LABS: LDL/HDL RATIO 0.9 (0.5-3.0)
[2018-10-19] MEDS: ALBUTEROL/IPRATROPIUM 2.5MG/0.5MG, 3 ML INLINE SCH ×2 (19:05→21:30)
[2018-10-19] MEDS: PROPOFOL 100 ML IV PRN (20:28)
[2018-10-19] MEDS ORDERED: INSULIN LISPRO 100 UNITS/ML, PEN SQ-INSULIN SCH (21:00)
[2018-10-19] MEDS: SODIUM CHLORIDE FLUSH 10ML SYR IVF SCH (21:26)
[2018-10-20] MEDS: PROPOFOL 100 ML IV PRN ×2 (00:33→20:37)
[2018-10-20 00:34] LABS: TROPONIN I 0.243 ng/mL (0.000-0.045)
[2018-10-20] MEDS: DOBUTAMINE/D5W PMX 250 ML IV PRN ×2 (01:31→10:51)
[2018-10-20] MEDS: ALBUTEROL/IPRATROPIUM 2.5MG/0.5MG, 3 ML INLINE SCH ×6 (01:54→22:09)
[2018-10-20] MEDS ORDERED: INSULIN LISPRO 100 UNITS/ML, PEN SQ-INSULIN SCH (03:00)
[2018-10-20 04:11] LABS: BASOPHILS # (AUTO) 0.05 x10^3/uL (0-0.1); BASOPHILS % (AUTO) 1 % (0-1); EOSINOPHILS # (AUTO) 0.19 x10^3/uL (0-0.4); EOSINOPHILS % (AUTO) 3 % (1-7); LYMPHOCYTES # (AUTO) 1.84 x10^3/uL (1-3.4); LYMPHOCYTES % (AUTO) 29 % (22-44); MD NO; MEAN CORPUSCULAR HEMOGLOBIN 27.6 pg (27.5-34.5); MEAN CORPUSCULAR HGB CONC 31.8 g/dL (33.2-36.2); MEAN CORPUSCULAR VOLUME 86.6 fL (81-97); MEAN PLATELET VOLUME 9.7 fL (7.4-10.4); MONOCYTES # (AUTO) 0.67 x10^3/uL (0.2-0.8); MONOCYTES % (AUTO) 11 % (2-9); NEUTROPHILS # (AUTO) 3.49 x10^3/uL (1.8-6.8); NEUTROPHILS % (AUTO) 56 % (42-75); PLATELET COUNT 129 x10^3/uL (130-400); RED BLOOD COUNT 3.64 x10^6/uL (4.38-5.82); RED CELL DISTRIBUTION WIDTH 18.2 % (9.4-14.8)
[2018-10-20 04:27] LABS: ALBUMIN 2.1 g/dL (3.4-5.0); ANION GAP 9 mmol/L (5-15); CALCIUM 7.3 mg/dL (8.5-10.1); CHLORIDE 106 mmol/L (98-107); CREATININE 4.12 mg/dL (0.7-1.3)
[2018-10-20] MEDS: CARVEDILOL 25 MG TABLET PO SCH ×2 (07:39→21:00)
[2018-10-20] MEDS: CALCIUM ACETATE 667 MG CAPSULE PO SCH ×3 (08:00→16:18)
[2018-10-20] MEDS: CALCITRIOL 0.25 MCG CAPSULE PO SCH (09:00)
[2018-10-20] MEDS: APIXABAN 2.5 MG TABLET PO SCH ×2 (09:15→21:32)
[2018-10-20] MEDS: AMIODARONE 200 MG TABLET PO SCH (09:16)
[2018-10-20] MEDS: SODIUM CHLORIDE FLUSH 10ML SYR IVF SCH ×2 (09:16→21:32)
[2018-10-20] MEDS: FENTANYL PF 100 MCG/2ML IVPush PRN (09:22)
[2018-10-20] MEDS: PANTOPRAZOLE 40 MG IV IVPush SCH (09:29)
[2018-10-20] MEDS ORDERED: LORazepam 2 MG/ML, 1ML IVPush PRN (09:30)
--- NOTE | 2018-10-20 10:57 | NUR ---
TF GOAL: w/ propofol: VITAL AF 1.2 @ 65ML/HR off propofol: NEPRO @ 60ML/HR
[2018-10-20] MEDS: NICOTINE 7 MG/24 HR PATCH.TD24 TD SCH (15:00)
[2018-10-20] MEDS ORDERED: VANCOMYCIN 2,000 MG in SODIUM CHLORIDE 0.9% 500 ML IV SCH (18:00)
[2018-10-20] MEDS: TAMSULOSIN 0.4 MG CAP.ER.24H PO SCH (21:32)
[2018-10-21] MEDS: ALBUTEROL/IPRATROPIUM 2.5MG/0.5MG, 3 ML INLINE SCH ×6 (02:00→22:25)
[2018-10-21] MEDS: PROPOFOL 100 ML IV PRN ×3 (03:31→22:44)
[2018-10-21 04:52] LABS: ANION GAP 9 mmol/L (5-15); CALCIUM 7.6 mg/dL (8.5-10.1); CHLORIDE 102 mmol/L (98-107)
[2018-10-21 04:54] LABS: CREATININE 3.51 mg/dL (0.7-1.3)
[2018-10-21] MEDS: CALCITRIOL 0.25 MCG CAPSULE PO SCH (08:30)
[2018-10-21] MEDS: TAMSULOSIN 0.4 MG CAP.ER.24H PO SCH (08:30)
[2018-10-21] MEDS: CALCIUM ACETATE 667 MG CAPSULE PO SCH ×3 (08:48→16:55)
[2018-10-21] MEDS: AMIODARONE 200 MG TABLET PO SCH (08:49)
[2018-10-21] MEDS: APIXABAN 2.5 MG TABLET PO SCH ×2 (08:49→21:11)
[2018-10-21] MEDS: PANTOPRAZOLE 40 MG IV IVPush SCH (08:50)
[2018-10-21] MEDS: SODIUM CHLORIDE FLUSH 10ML SYR IVF SCH ×2 (09:47→21:11)
[2018-10-21] MEDS ORDERED: VANCOMYCIN 2,000 MG in SODIUM CHLORIDE 0.9% 500 ML IV ONE (15:00)
[2018-10-21] MEDS: FENTANYL PF 100 MCG/2ML IVPush PRN (19:18)
[2018-10-22] MEDS: FENTANYL PF 100 MCG/2ML IVPush PRN ×3 (00:16→20:46)
[2018-10-22] MEDS: ALBUTEROL/IPRATROPIUM 2.5MG/0.5MG, 3 ML INLINE SCH ×6 (02:00→22:07)
[2018-10-22 04:28] LABS: BASOPHILS # (AUTO) 0.05 x10^3/uL (0-0.1); BASOPHILS % (AUTO) 1 % (0-1); EOSINOPHILS % (AUTO) 4 % (1-7); LYMPHOCYTES # (AUTO) 1.38 x10^3/uL (1-3.4); LYMPHOCYTES % (AUTO) 25 % (22-44); MD NO; MEAN CORPUSCULAR HEMOGLOBIN 27.7 pg (27.5-34.5); MEAN CORPUSCULAR HGB CONC 32.2 g/dL (33.2-36.2); MEAN CORPUSCULAR VOLUME 85.8 fL (81-97); MEAN PLATELET VOLUME 10.4 fL (7.4-10.4); MONOCYTES # (AUTO) 0.66 x10^3/uL (0.2-0.8); MONOCYTES % (AUTO) 12 % (2-9); NEUTROPHILS # (AUTO) 3.15 x10^3/uL (1.8-6.8); NEUTROPHILS % (AUTO) 58 % (42-75); PLATELET COUNT 106 x10^3/uL (130-400); RED BLOOD COUNT 3.58 x10^6/uL (4.38-5.82); RED CELL DISTRIBUTION WIDTH 17.6 % (9.4-14.8)
[2018-10-22 04:40] LABS: ANION GAP 10 mmol/L (5-15); CALCIUM 7.5 mg/dL (8.5-10.1); CHLORIDE 103 mmol/L (98-107)
[2018-10-22 04:41] LABS: CREATININE 3.99 mg/dL (0.7-1.3); TRIGLYCERIDES 120 mg/dL (50-200)
[2018-10-22] MEDS: PROPOFOL 100 ML IV PRN ×4 (06:37→23:33)
[2018-10-22] MEDS: CALCIUM ACETATE 667 MG CAPSULE PO SCH ×3 (07:23→15:18)
[2018-10-22] MEDS: AMIODARONE 200 MG TABLET PO SCH (07:23)
[2018-10-22] MEDS: CALCITRIOL 0.25 MCG CAPSULE PO SCH (07:23)
[2018-10-22] MEDS: APIXABAN 2.5 MG TABLET PO SCH ×2 (07:23→20:29)
[2018-10-22] MEDS: TAMSULOSIN 0.4 MG CAP.ER.24H PO SCH (07:23)
[2018-10-22] MEDS: PANTOPRAZOLE 40 MG IV IVPush SCH (07:24)
[2018-10-22] MEDS: SODIUM CHLORIDE FLUSH 10ML SYR IVF SCH ×2 (07:24→20:29)
[2018-10-23] MEDS: FENTANYL PF 100 MCG/2ML IVPush PRN ×3 (01:56→23:00)
[2018-10-23] MEDS: ALBUTEROL/IPRATROPIUM 2.5MG/0.5MG, 3 ML INLINE SCH ×6 (02:39→22:32)
[2018-10-23] MEDS: PROPOFOL 100 ML IV PRN ×3 (04:10→15:55)
[2018-10-23 04:48] LABS: ANION GAP 9 mmol/L (5-15); CALCIUM 7.3 mg/dL (8.5-10.1); CHLORIDE 102 mmol/L (98-107); CREATININE 3.07 mg/dL (0.7-1.3)
[2018-10-23 05:44] LABS: BASOPHILS # (AUTO) 0.03 x10^3/uL (0-0.1); BASOPHILS % (AUTO) 1 % (0-1); EOSINOPHILS # (AUTO) 0.17 x10^3/uL (0-0.4); EOSINOPHILS % (AUTO) 3 % (1-7); LYMPHOCYTES # (AUTO) 1.08 x10^3/uL (1-3.4); LYMPHOCYTES % (AUTO) 21 % (22-44); MD SCAN; MEAN CORPUSCULAR HGB CONC 31.5 g/dL (33.2-36.2); MEAN CORPUSCULAR VOLUME 85.6 fL (81-97); MEAN PLATELET VOLUME 9.2 fL (7.4-10.4); MONOCYTES # (AUTO) 0.66 x10^3/uL (0.2-0.8); MONOCYTES % (AUTO) 13 % (2-9); NEUTROPHILS # (AUTO) 3.17 x10^3/uL (1.8-6.8); NEUTROPHILS % (AUTO) 62 % (42-75); PLATELET COUNT 94 x10^3/uL (130-400); RED BLOOD COUNT 3.54 x10^6/uL (4.38-5.82); RED CELL DISTRIBUTION WIDTH 18.2 % (9.4-14.8)
[2018-10-23 05:45] LABS: FIO2 30 %
[2018-10-23] MEDS: CALCIUM ACETATE 667 MG CAPSULE PO SCH ×3 (07:57→15:32)
[2018-10-23] MEDS: PANTOPRAZOLE 40 MG IV IVPush SCH (07:57)
[2018-10-23] MEDS: APIXABAN 2.5 MG TABLET PO SCH ×2 (07:57→21:02)
[2018-10-23] MEDS: TAMSULOSIN 0.4 MG CAP.ER.24H PO SCH (07:57)
[2018-10-23] MEDS: AMIODARONE 200 MG TABLET PO SCH (07:57)
[2018-10-23] MEDS: CALCITRIOL 0.25 MCG CAPSULE PO SCH (07:57)
[2018-10-23] MEDS: SODIUM CHLORIDE FLUSH 10ML SYR IVF SCH ×2 (07:58→21:03)
[2018-10-23 11:42] LABS: MICROSCOPIC AUTO
[2018-10-23 11:51] LABS: CULTURE INDICATED? YES
[2018-10-23] MEDS ORDERED: ALBUMIN HUMAN 25% 100 ML IV PRN ×2 (13:30)
[2018-10-23] MEDS: RISPERIDONE 1 MG/ML ORAL SOLN NG SCH ×2 (15:32→21:02)
[2018-10-24] MEDS: PROPOFOL 100 ML IV PRN ×2 (01:26→06:35)
[2018-10-24] MEDS: ALBUTEROL/IPRATROPIUM 2.5MG/0.5MG, 3 ML INLINE SCH ×2 (02:11→06:20)
[2018-10-24 05:16] LABS: BASOPHILS # (AUTO) 0.03 x10^3/uL (0-0.1); BASOPHILS % (AUTO) 1 % (0-1); EOSINOPHILS # (AUTO) 0.22 x10^3/uL (0-0.4); EOSINOPHILS % (AUTO) 3 % (1-7); LYMPHOCYTES # (AUTO) 1.01 x10^3/uL (1-3.4); LYMPHOCYTES % (AUTO) 16 % (22-44); MD NO; MEAN CORPUSCULAR HEMOGLOBIN 26.8 pg (27.5-34.5); MEAN CORPUSCULAR HGB CONC 31.3 g/dL (33.2-36.2); MEAN CORPUSCULAR VOLUME 85.5 fL (81-97); MEAN PLATELET VOLUME 9.5 fL (7.4-10.4); MONOCYTES # (AUTO) 0.68 x10^3/uL (0.2-0.8); MONOCYTES % (AUTO) 11 % (2-9); NEUTROPHILS # (AUTO) 4.53 x10^3/uL (1.8-6.8); NEUTROPHILS % (AUTO) 70 % (42-75); PLATELET COUNT 107 x10^3/uL (130-400); RED BLOOD COUNT 3.53 x10^6/uL (4.38-5.82); RED CELL DISTRIBUTION WIDTH 18.1 % (9.4-14.8)
[2018-10-24 05:23] LABS: CHLORIDE 101 mmol/L (98-107)
[2018-10-24 05:27] LABS: ANION GAP 10 mmol/L (5-15); CALCIUM 7.9 mg/dL (8.5-10.1); CHLORIDE 102 mmol/L (98-107); CREATININE 3.44 mg/dL (0.7-1.3)
[2018-10-24 05:31] LABS: ALBUMIN 2.2 g/dL (3.4-5.0); ANION GAP 10 mmol/L (5-15); CALCIUM 7.8 mg/dL (8.5-10.1); CREATININE 3.46 mg/dL (0.7-1.3)
[2018-10-24] MEDS: TAMSULOSIN 0.4 MG CAP.ER.24H PO SCH (08:36)
[2018-10-24] MEDS: AMIODARONE 200 MG TABLET PO SCH (08:36)
[2018-10-24] MEDS: CALCIUM ACETATE 667 MG CAPSULE PO SCH ×3 (08:37→16:32)
[2018-10-24] MEDS: CALCITRIOL 0.25 MCG CAPSULE PO SCH (08:37)
[2018-10-24] MEDS: PANTOPRAZOLE 40 MG IV IVPush SCH (08:37)
[2018-10-24] MEDS: APIXABAN 2.5 MG TABLET PO SCH ×2 (08:38→20:02)
[2018-10-24] MEDS: SODIUM CHLORIDE FLUSH 10ML SYR IVF SCH ×2 (08:39→20:01)
[2018-10-24] MEDS: RISPERIDONE 1 MG/ML ORAL SOLN NG SCH ×2 (08:40→20:02)
[2018-10-24] MEDS ORDERED: ALBUTEROL/IPRATROPIUM 2.5MG/0.5MG, 3 ML NPPB PRN (09:30)
[2018-10-24] MEDS ORDERED: RACEPINEPHRINE INH 2.25%, 0.5ML ONE (10:46)
[2018-10-24] MEDS: MORPHINE SULFATE 4 MG/ML, 1ML IVPush PRN ×2 (11:47→19:48)
[2018-10-24] MEDS: ALBUTEROL/IPRATROPIUM 2.5MG/0.5MG, 3 ML NPPB SCH ×3 (14:43→22:13)
[2018-10-24] MEDS: TEMAZEPAM 15 MG CAPSULE PO PRN (22:38)
[2018-10-25] MEDS: SODIUM CHLORIDE NASAL SPRAY 45ML BOTTLE NAS PRN ×2 (00:43→08:04)
[2018-10-25] MEDS: ALBUTEROL/IPRATROPIUM 2.5MG/0.5MG, 3 ML NPPB SCH ×5 (01:59→19:21)
[2018-10-25] MEDS: MORPHINE SULFATE 4 MG/ML, 1ML IVPush PRN (03:25)
[2018-10-25 06:12] LABS: BASOPHILS # (AUTO) 0.05 x10^3/uL (0-0.1); BASOPHILS % (AUTO) 1 % (0-1); EOSINOPHILS # (AUTO) 0.22 x10^3/uL (0-0.4); EOSINOPHILS % (AUTO) 3 % (1-7); LYMPHOCYTES # (AUTO) 1.39 x10^3/uL (1-3.4); LYMPHOCYTES % (AUTO) 21 % (22-44); MD NO; MEAN CORPUSCULAR HEMOGLOBIN 27.3 pg (27.5-34.5); MEAN CORPUSCULAR HGB CONC 31.2 g/dL (33.2-36.2); MEAN CORPUSCULAR VOLUME 87.5 fL (81-97); MEAN PLATELET VOLUME 8.6 fL (7.4-10.4); MONOCYTES # (AUTO) 0.78 x10^3/uL (0.2-0.8); MONOCYTES % (AUTO) 12 % (2-9); NEUTROPHILS # (AUTO) 4.26 x10^3/uL (1.8-6.8); NEUTROPHILS % (AUTO) 64 % (42-75); PLATELET COUNT 122 x10^3/uL (130-400); RED BLOOD COUNT 3.53 x10^6/uL (4.38-5.82); RED CELL DISTRIBUTION WIDTH 18.1 % (9.4-14.8)
[2018-10-25 06:22] LABS: ANION GAP 6 mmol/L (5-15); CALCIUM 8.4 mg/dL (8.5-10.1); CHLORIDE 104 mmol/L (98-107); CREATININE 2.62 mg/dL (0.7-1.3); TRIGLYCERIDES 62 mg/dL (50-200)
[2018-10-25] MEDS: RISPERIDONE 1 MG/ML ORAL SOLN NG SCH ×2 (07:59→21:00)
[2018-10-25] MEDS: CALCIUM ACETATE 667 MG CAPSULE PO SCH ×3 (07:59→16:27)
[2018-10-25] MEDS: SENNA/DOCUSATE TABLET NG PRN (07:59)
[2018-10-25] MEDS: APIXABAN 2.5 MG TABLET PO SCH ×2 (08:00→21:00)
[2018-10-25] MEDS: TAMSULOSIN 0.4 MG CAP.ER.24H PO SCH (08:00)
[2018-10-25] MEDS: SODIUM CHLORIDE FLUSH 10ML SYR IVF SCH ×2 (08:00→21:00)
[2018-10-25] MEDS: CALCITRIOL 0.25 MCG CAPSULE PO SCH (08:00)
[2018-10-25] MEDS: AMIODARONE 200 MG TABLET PO SCH (08:00)
[2018-10-25 12:54] VITALS: BP 129/64
[2018-10-25 12:56] VITALS: BP 129/64
[2018-10-25] MEDS: ERGOCALCIFEROL 50,000 UNIT CAPSULE PO SCH (15:24)
[2018-10-25 21:37] VITALS: BP 123/87
[2018-10-26] MEDS: TEMAZEPAM 15 MG CAPSULE PO PRN (00:55)
[2018-10-26 02:49] VITALS: BP 122/69
[2018-10-26 04:28] LABS: BASOPHILS # (AUTO) 0.03 x10^3/uL (0-0.1); BASOPHILS % (AUTO) 0 % (0-1); EOSINOPHILS # (AUTO) 0.17 x10^3/uL (0-0.4); EOSINOPHILS % (AUTO) 2 % (1-7); LYMPHOCYTES # (AUTO) 1.29 x10^3/uL (1-3.4); LYMPHOCYTES % (AUTO) 14 % (22-44); MD NO; MEAN CORPUSCULAR HEMOGLOBIN 27.8 pg (27.5-34.5); MEAN CORPUSCULAR HGB CONC 32.1 g/dL (33.2-36.2); MEAN CORPUSCULAR VOLUME 86.7 fL (81-97); MEAN PLATELET VOLUME 8.1 fL (7.4-10.4); MONOCYTES # (AUTO) 0.88 x10^3/uL (0.2-0.8); MONOCYTES % (AUTO) 10 % (2-9); NEUTROPHILS # (AUTO) 6.78 x10^3/uL (1.8-6.8); NEUTROPHILS % (AUTO) 74 % (42-75); PLATELET COUNT 145 x10^3/uL (130-400); RED CELL DISTRIBUTION WIDTH 17.8 % (9.4-14.8)
[2018-10-26 04:39] LABS: ANION GAP 4 mmol/L (5-15); CALCIUM 8.5 mg/dL (8.5-10.1); CHLORIDE 101 mmol/L (98-107); CREATININE 3.47 mg/dL (0.7-1.3)
[2018-10-26] MEDS: ALBUTEROL/IPRATROPIUM 2.5MG/0.5MG, 3 ML NPPB SCH ×4 (07:00→20:00)
[2018-10-26 08:00] VITALS: BP 122/65
[2018-10-26] MEDS ORDERED: ARANESP 40 MCG/ML **ESRD SQ SCH (08:30)
[2018-10-26] MEDS: SENNA/DOCUSATE TABLET NG PRN (08:47)
[2018-10-26] MEDS: CALCIUM ACETATE 667 MG CAPSULE PO SCH ×4 (08:47→17:09)
[2018-10-26] MEDS: CALCITRIOL 0.25 MCG CAPSULE PO SCH (08:48)
[2018-10-26] MEDS: RISPERIDONE 1 MG/ML ORAL SOLN NG SCH (08:48)
[2018-10-26] MEDS: APIXABAN 2.5 MG TABLET PO SCH ×2 (08:48→20:58)
[2018-10-26] MEDS: TAMSULOSIN 0.4 MG CAP.ER.24H PO SCH (08:49)
[2018-10-26] MEDS: AMIODARONE 200 MG TABLET PO SCH (08:49)
[2018-10-26] MEDS: SODIUM CHLORIDE FLUSH 10ML SYR IVF SCH ×2 (08:50→21:00)
[2018-10-26 19:54] VITALS: BP 130/73
[2018-10-26] MEDS: RISPERIDONE 1 MG/ML ORAL SOLN PO SCH (20:59)
[2018-10-27 02:10] VITALS: BP 139/83
[2018-10-27 06:43] VITALS: BP 144/74
[2018-10-27] MEDS: ALBUTEROL/IPRATROPIUM 2.5MG/0.5MG, 3 ML NPPB SCH ×3 (07:00→14:15)
[2018-10-27] MEDS: TAMSULOSIN 0.4 MG CAP.ER.24H PO SCH (08:19)
[2018-10-27] MEDS: CALCITRIOL 0.25 MCG CAPSULE PO SCH (08:19)
[2018-10-27] MEDS: APIXABAN 2.5 MG TABLET PO SCH (08:19)
[2018-10-27] MEDS: RISPERIDONE 1 MG/ML ORAL SOLN PO SCH (08:19)
[2018-10-27] MEDS: CALCIUM ACETATE 667 MG CAPSULE PO SCH ×2 (08:19→12:53)
[2018-10-27] MEDS: SODIUM CHLORIDE FLUSH 10ML SYR IVF SCH (08:20)
[2018-10-27] MEDS ORDERED: AMIODARONE 200 MG TABLET PO SCH (09:00)
[2018-10-27 11:11] LABS: BASOPHILS # (AUTO) 0.01 x10^3/uL (0-0.1); BASOPHILS % (AUTO) 0 % (0-1); EOSINOPHILS # (AUTO) 0.15 x10^3/uL (0-0.4); EOSINOPHILS % (AUTO) 2 % (1-7); LYMPHOCYTES # (AUTO) 1.01 x10^3/uL (1-3.4); LYMPHOCYTES % (AUTO) 14 % (22-44); MD NO; MEAN CORPUSCULAR HEMOGLOBIN 27.4 pg (27.5-34.5); MEAN CORPUSCULAR HGB CONC 31.5 g/dL (33.2-36.2); MEAN PLATELET VOLUME 8.4 fL (7.4-10.4); MONOCYTES # (AUTO) 0.54 x10^3/uL (0.2-0.8); MONOCYTES % (AUTO) 8 % (2-9); NEUTROPHILS # (AUTO) 5.43 x10^3/uL (1.8-6.8); NEUTROPHILS % (AUTO) 76 % (42-75); PLATELET COUNT 146 x10^3/uL (130-400); RED BLOOD COUNT 3.49 x10^6/uL (4.38-5.82); RED CELL DISTRIBUTION WIDTH 17.5 % (9.4-14.8)
[2018-10-27 11:40] LABS: ALBUMIN 2.4 g/dL (3.4-5.0); ANION GAP 6 mmol/L (5-15); CALCIUM 8.3 mg/dL (8.5-10.1); CHLORIDE 103 mmol/L (98-107)
[2018-10-27 11:43] LABS: ALANINE AMINOTRANSFERASE 33 U/L (12-78); ALKALINE PHOSPHATASE 184 U/L (45-117); BILIRUBIN,TOTAL 0.5 mg/dL (0.2-1.0); CREATININE 2.62 mg/dL (0.7-1.3); TOTAL PROTEIN 6.6 g/dL (6.4-8.2)
[2018-10-27] MEDS ORDERED: LISINOPRIL 5 MG TABLET PO SCH (12:30)
[2018-10-27] MEDS ORDERED: LISI5TAB7 PO (14:17)
[2018-10-27] MEDS ORDERED: APIX2.5T PO (14:17)
[2018-10-27] MEDS ORDERED: AMIO200T42 PO (14:17)
== END 2018-10-27 15:13 | disposition home or self-care (01) | DRG 207 ==
LOC: ED 12:36 → EDIP 13:39 → 5SO 14:51 → 4WST 10-12 15:02 → 5SO 10-18 17:08 → CSU 10-19 13:49 → CCU 10-21 07:05 → 4WST 10-25 10:23
PROVIDERS: ADMIT Internal Medicine; ATTEND Internal Medicine
PROC: 0JH63XZ Insertion of Tunneled Vascular Access Device into Chest Subcutaneous Tissue and Fascia, Percutaneous Approach (ICD-10-PCS; 2018-10-13)
PROC: 02HV33Z Insertion of Infusion Device into Superior Vena Cava, Percutaneous Approach (ICD-10-PCS; 2018-10-13)
PROC: B5181ZA Fluoroscopy of Superior Vena Cava using Low Osmolar Contrast, Guidance (ICD-10-PCS; 2018-10-13)
PROC: B548ZZA Ultrasonography of Superior Vena Cava, Guidance (ICD-10-PCS; 2018-10-13)
PROC: 5A1D70Z Performance of Urinary Filtration, Intermittent, Less than 6 Hours Per Day (ICD-10-PCS; 2018-10-13)
PROC: 5A1D70Z Performance of Urinary Filtration, Intermittent, Less than 6 Hours Per Day (ICD-10-PCS; 2018-10-15)
PROC: 5A1D70Z Performance of Urinary Filtration, Intermittent, Less than 6 Hours Per Day (ICD-10-PCS; 2018-10-16)
PROC: 5A1D70Z Performance of Urinary Filtration, Intermittent, Less than 6 Hours Per Day (ICD-10-PCS; 2018-10-17)
PROC: 5A1D70Z Performance of Urinary Filtration, Intermittent, Less than 6 Hours Per Day (ICD-10-PCS; 2018-10-17)
PROC: 0BH17EZ Insertion of Endotracheal Airway into Trachea, Via Natural or Artificial Opening (ICD-10-PCS; 2018-10-19)
PROC: 02HV33Z Insertion of Infusion Device into Superior Vena Cava, Percutaneous Approach (ICD-10-PCS; 2018-10-19)
PROC: B548ZZA Ultrasonography of Superior Vena Cava, Guidance (ICD-10-PCS; 2018-10-19)
PROC: 5A2204Z Restoration of Cardiac Rhythm, Single (ICD-10-PCS; 2018-10-19)
PROC: 5A1955Z Respiratory Ventilation, Greater than 96 Consecutive Hours (ICD-10-PCS; principal; 2018-10-19 12:50)
PROC: 5A1D70Z Performance of Urinary Filtration, Intermittent, Less than 6 Hours Per Day (ICD-10-PCS; 2018-10-20)
PROC: 5A1D70Z Performance of Urinary Filtration, Intermittent, Less than 6 Hours Per Day (ICD-10-PCS; 2018-10-21)
PROC: 5A1D70Z Performance of Urinary Filtration, Intermittent, Less than 6 Hours Per Day (ICD-10-PCS; 2018-10-22)
PROC: 0T9B70Z Drainage of Bladder with Drainage Device, Via Natural or Artificial Opening (ICD-10-PCS; 2018-10-23)
PROC: 5A1D70Z Performance of Urinary Filtration, Intermittent, Less than 6 Hours Per Day (ICD-10-PCS; 2018-10-23)
PROC: 5A1D70Z Performance of Urinary Filtration, Intermittent, Less than 6 Hours Per Day (ICD-10-PCS; 2018-10-24)
DX: J96.21 Acute and chronic respiratory failure with hypoxia (principal); G93.41 Metabolic encephalopathy; I46.9 Cardiac arrest, cause unspecified; I50.43 Acute on chronic combined systolic (congestive) and diastolic (congestive) heart failure; N18.6 End stage renal disease; N17.9 Acute kidney failure, unspecified; D68.69 Other thrombophilia; E87.2 Acidosis; I13.2 Hypertensive heart and chronic kidney disease with heart failure and with stage 5 chronic kidney disease, or end stage renal disease; I42.9 Cardiomyopathy, unspecified; I45.2 Bifascicular block; I48.92 Unspecified atrial flutter; N39.0 Urinary tract infection, site not specified; R57.9 Shock, unspecified; Z99.11 Dependence on respirator [ventilator] status; J98.11 Atelectasis; B95.2 Enterococcus as the cause of diseases classified elsewhere; Z88.3 Allergy status to other anti-infective agents; Z88.0 Allergy status to penicillin; Z88.8 Allergy status to other drugs, medicaments and biological substances; D63.1 Anemia in chronic kidney disease; E11.21 Type 2 diabetes mellitus with diabetic nephropathy; E11.22 Type 2 diabetes mellitus with diabetic chronic kidney disease; E78.5 Hyperlipidemia, unspecified; E87.5 Hyperkalemia; E88.09 Other disorders of plasma-protein metabolism, not elsewhere classified; F17.210 Nicotine dependence, cigarettes, uncomplicated; G89.29 Other chronic pain; I08.3 Combined rheumatic disorders of mitral, aortic and tricuspid valves; I25.10 Atherosclerotic heart disease of native coronary artery without angina pectoris; I25.2 Old myocardial infarction; E77.8 Other disorders of glycoprotein metabolism; I48.0 Paroxysmal atrial fibrillation; J44.9 Chronic obstructive pulmonary disease, unspecified; M81.0 Age-related osteoporosis without current pathological fracture; N40.0 Benign prostatic hyperplasia without lower urinary tract symptoms; Z79.01 Long term (current) use of anticoagulants; Z80.0 Family history of malignant neoplasm of digestive organs; Z82.49 Family history of ischemic heart disease and other diseases of the circulatory system; Z87.892 Personal history of anaphylaxis; Z89.511 Acquired absence of right leg below knee; Z90.49 Acquired absence of other specified parts of digestive tract; Z99.2 Dependence on renal dialysis; Z99.81 Dependence on supplemental oxygen; Z79.4 Long term (current) use of insulin; N50.89 Other specified disorders of the male genital organs
CPT/HCPCS: 36415; 36600; 74022; 77001; 99291; J3490; J7620; 36561; 36573; 71045; 74176; 76937; 80048; 80053; 80061; 80069; 80074; 80202; 81001; 82010; 82306; 82728; 82803; 82962; 83036; 83540; 83550; 83605; 83690; 83735; 83880; 83970; 84100; 84132; 84478; 84484; 84550; 85025; 85610; 85730; 86480; 87040; 87070; 87077; 87081; 87086; 87186; 87205; 93005; 93306; 93312; 93321; 93325; 93970; 94002; 94003; 94640; 96374; 96375; 96376; 99156; 99157; G0378; J0171; J0882; J1644; J1815; J1940; J2250; J2405; J2704; J3010; J3370; P9047; C1750; C1751; C9113; J0282; J1160; J1250; J1642; J2060; J2270; J2310; J3475; J7040; J7050

== ENCOUNTER 2018-11-07 14:47 | Inpatient (IN) | payer MEDICAID ==
[~2018-11-07] VITALS: Ht 185.4 cm; Wt 96.1 kg
[~2018-11-07 14:47] MED LIST changes: +AMIO200T42 PO; +APIX2.5T PO
[2018-11-07] MEDS ORDERED: SODIUM CHLORIDE 0.9%, 500ML IVBOLUS ONE (15:00)
[2018-11-07] MEDS ORDERED: SODIUM CHLORIDE FLUSH 10ML SYR IVF ONE (15:00)
--- NOTE | 2018-11-07 15:00 | NUR ---
ER MD IN TO ASSESS PT.
--- NOTE | 2018-11-07 15:05 | NUR ---
BIB [facility], EMS STATES HE WAS AT DIALYSIS AND HIS HR SUDDENLY INCREASED. PT REPORTS HE FEELS FINE AND DOESNT KNOW WHY THE PARAMEDICS BROUGHT HIM IN.
[2018-11-07 15:30] LABS: ALANINE AMINOTRANSFERASE 15 U/L (12-78); ALBUMIN 2.7 g/dL (3.4-5.0); ANION GAP 8 mmol/L (5-15); CALCIUM 8.2 mg/dL (8.5-10.1); CHLORIDE 99 mmol/L (98-107); CREATININE 3.01 mg/dL (0.7-1.3)
[2018-11-07 15:34] LABS: ALKALINE PHOSPHATASE 136 U/L (45-117); BILIRUBIN,TOTAL 0.6 mg/dL (0.2-1.0); TOTAL PROTEIN 6.9 g/dL (6.4-8.2)
[2018-11-07 15:38] LABS: TROPONIN I 0.179 ng/mL (0.000-0.045)
[2018-11-07] MEDS ORDERED: DILTIAZEM 5 MG/ML, 5ML IVPush STA (15:45)
--- NOTE | 2018-11-07 15:46 | NUR ---
LAB CONTACTED THIS NURSE WITH A CRITICAL LAB VALUE, TROPONIN 0.179. ER MD DALLAS NOTIFIED.
[2018-11-07] MEDS ORDERED: DILTIAZEM 5 MG/ML, 5ML ONE ×2 (15:52→17:10)
[2018-11-07 16:01] LABS: MEAN CORPUSCULAR HEMOGLOBIN 26.4 pg (27.5-34.5); MEAN CORPUSCULAR HGB CONC 30.9 g/dL (33.2-36.2); MEAN CORPUSCULAR VOLUME 85.6 fL (81-97); MEAN PLATELET VOLUME 8.8 fL (7.4-10.4); PLATELET COUNT 63 x10^3/uL (130-400); RED BLOOD COUNT 3.78 x10^6/uL (4.38-5.82); RED CELL DISTRIBUTION WIDTH 17.7 % (9.4-14.8)
[2018-11-07 16:02] LABS: MD YES
[2018-11-07 16:11] LABS: BAND#(MANUAL) 0.16 x10^3/uL; BANDS%(MANUAL) 2 % (0-7); BASOS#(MANUAL) 0.08 x10^3/uL (0-0.1); BASOS% (MANUAL) 1 % (0-1); EOS#(MANUAL) 0.16 x10^3/uL (0.0-0.4); EOS% (MANUAL) 2 % (1-7); LYMPH#(MANUAL) 1.33 x10^3/uL (1-3.4); LYMPHS% (MANUAL) 17 % (22-44); MONOS#(MANUAL) 0.47 x10^3/uL (0.3-2.7); MONOS% (MANUAL) 6 % (2-9); SEG#(MANUAL) 5.62 x10^3/uL (1.8-6.8); SEGS% (MANUAL) 72 % (42-75)
[2018-11-07 16:14] LABS: HYPOCHROMIA 1+; MICROCYTOSIS 1+; OVALOCYTES 1+; POLYCHROMASIA 1+; TEAR DROPS 1+
[2018-11-07 16:15] LABS: <PLATELET ESTIMATE> DECREASED; <PLT MORPHOLOGY> NORMAL PLT MORPH; TARGET CELLS 1+
--- NOTE | 2018-11-07 16:25 | NUR ---
pt hr has improved since [facility]
[2018-11-07] MEDS ORDERED: DILTIAZEM 5 MG/ML, 5ML IVPush ONE (17:00)
[2018-11-07] MEDS ORDERED: POTASSIUM CHLORIDE 10% 40 MEQ/30 ML UDC PO ONE (17:00)
[2018-11-07] MEDS ORDERED: DILTIAZEM 125 MG in SODIUM CHLORIDE 0.9% 100 ML IV SCH (17:00)
--- NOTE | 2018-11-07 17:14 | NUR ---
REQUEST SENT TO PHARM FOR Essie DAVILA
--- NOTE | 2018-11-07 17:20 | NUR ---
pt sleeping on gurney. pt medicated a second time to further reduce hr per er md orders. pt to be admitted.
[2018-11-07] MEDS ORDERED: FUROSEMIDE 40 MG/4 ML IV ONE (17:30)
[2018-11-07] MEDS ORDERED: ONDANSETRON ODT 4 MG PO PRN (18:00)
[2018-11-07] MEDS ORDERED: BISACODYL 10 MG SUPP PR PRN (18:00)
[2018-11-07] MEDS ORDERED: POLYETHYLENE GLYCOL 17 GM PACKET PO PRN (18:00)
[2018-11-07] MEDS: NICOTINE 14MG/24 HR PATCH.TD24 TD SCH (18:00)
[2018-11-07] MEDS: INSULIN LISPRO 100 UNITS/ML, PEN SQ-INSULIN SCH ×2 (18:00→20:08)
[2018-11-07] MEDS ORDERED: ERGOCALCIFEROL 50,000 UNIT CAPSULE PO SCH (18:00)
--- NOTE | 2018-11-07 18:02 | NUR ---
report given to miguel doe
[2018-11-07] MEDS: METOPROLOL TARTRATE 25 MG TABLET PO SCH (18:41)
[2018-11-07] MEDS: CALCIUM ACETATE 667 MG CAPSULE PO SCH (19:50)
[2018-11-07 20:00] VITALS: BP 112/71
[2018-11-07] MEDS: APIXABAN 2.5 MG TABLET PO SCH (20:09)
[2018-11-07] MEDS: SODIUM CHLORIDE FLUSH 10ML SYR IVF SCH (20:09)
[2018-11-07] MEDS ORDERED: ALBUTEROL SULFATE 2.5 MG/3 ML NPPB PRN (21:00)
[2018-11-07 21:26] LABS: TROPONIN I 0.166 ng/mL (0.000-0.045)
[2018-11-07] MEDS: GABAPENTIN 300 MG CAPSULE PO SCH (22:17)
[2018-11-08] MEDS ORDERED: DILTIAZEM 5 MG/ML, 5ML IVPush ONE (01:00)
[2018-11-08 02:59] VITALS: BP 123/83
[2018-11-08 03:25] LABS: ALANINE AMINOTRANSFERASE 16 U/L (12-78); ALBUMIN 2.6 g/dL (3.4-5.0); ANION GAP 6 mmol/L (5-15); CALCIUM 8.1 mg/dL (8.5-10.1); CHLORIDE 101 mmol/L (98-107); CREATININE 3.56 mg/dL (0.7-1.3)
[2018-11-08 03:29] LABS: ALKALINE PHOSPHATASE 131 U/L (45-117); BILIRUBIN,TOTAL 0.5 mg/dL (0.2-1.0); TOTAL PROTEIN 6.3 g/dL (6.4-8.2); TROPONIN I 0.175 ng/mL (0.000-0.045)
[2018-11-08] MEDS ORDERED: DILTIAZEM 125 MG in SODIUM CHLORIDE 0.9% 100 ML IV SCH (03:30)
[2018-11-08 03:44] LABS: MEAN CORPUSCULAR HEMOGLOBIN 27.4 pg (27.5-34.5); MEAN CORPUSCULAR HGB CONC 31.8 g/dL (33.2-36.2); MEAN CORPUSCULAR VOLUME 86.2 fL (81-97); RED BLOOD COUNT 3.72 x10^6/uL (4.38-5.82)
[2018-11-08 03:51] LABS: MD YES; MEAN PLATELET VOLUME 8.8 fL (7.4-10.4); PLATELET COUNT 84 x10^3/uL (130-400)
[2018-11-08 03:54] LABS: BAND#(MANUAL) 0.06 x10^3/uL; BANDS%(MANUAL) 1 % (0-7); EOS#(MANUAL) 0.12 x10^3/uL (0.0-0.4); EOS% (MANUAL) 2 % (1-7); LYMPH#(MANUAL) 1.12 x10^3/uL (1-3.4); LYMPHS% (MANUAL) 18 % (22-44); MONOS#(MANUAL) 0.19 x10^3/uL (0.3-2.7); MONOS% (MANUAL) 3 % (2-9); SEG#(MANUAL) 4.71 x10^3/uL (1.8-6.8); SEGS% (MANUAL) 76 % (42-75)
[2018-11-08 03:55] LABS: ANISOCYTOSIS 1+; HYPOCHROMIA 1+; OVALOCYTES 1+
[2018-11-08 03:56] LABS: <PLATELET ESTIMATE> DECREASED; <PLT MORPHOLOGY> NORMAL PLT MORPH; TEAR DROPS 1+
[2018-11-08] MEDS: METOPROLOL TARTRATE 25 MG TABLET PO SCH ×3 (05:33→21:11)
[2018-11-08 06:55] VITALS: BP 107/72
[2018-11-08] MEDS: CALCIUM ACETATE 667 MG CAPSULE PO SCH ×3 (08:00→17:00)
[2018-11-08] MEDS: SENNA/DOCUSATE TABLET PO SCH (08:40)
[2018-11-08] MEDS: TAMSULOSIN 0.4 MG CAP.ER.24H PO SCH (08:41)
[2018-11-08] MEDS: INSULIN LISPRO 100 UNITS/ML, PEN SQ-INSULIN SCH ×4 (08:42→21:00)
[2018-11-08] MEDS: LISINOPRIL 5 MG TABLET PO SCH (08:42)
[2018-11-08] MEDS: APIXABAN 2.5 MG TABLET PO SCH ×2 (08:42→21:11)
[2018-11-08] MEDS: GABAPENTIN 300 MG CAPSULE PO SCH ×3 (08:42→21:10)
[2018-11-08] MEDS: CALCITRIOL 0.25 MCG CAPSULE PO SCH (08:43)
[2018-11-08] MEDS: SODIUM CHLORIDE FLUSH 10ML SYR IVF SCH ×2 (09:00→21:12)
[2018-11-08] MEDS: AMIODARONE 200 MG TABLET PO SCH (10:09)
[2018-11-08] MEDS ORDERED: OXYcodone IR 5MG TABLET PO ONE (10:30)
[2018-11-08 12:35] VITALS: BP 102/75
[2018-11-08] MEDS: NICOTINE 14MG/24 HR PATCH.TD24 TD SCH (17:51)
[2018-11-08 19:38] VITALS: BP 111/78
[2018-11-08] MEDS ORDERED: TRAZODONE 50MG TABLET PO PRN (21:00)
[2018-11-08] MEDS ORDERED: DIPHENHYDRAMINE 25 MG CAPSULE PO PRN (21:30)
[2018-11-09 02:00] VITALS: BP 113/67
[2018-11-09] MEDS ORDERED: METOPROLOL 1 MG/ML, 5ML IVPush ONE (04:30)
[2018-11-09 04:58] LABS: MEAN CORPUSCULAR HEMOGLOBIN 27.7 pg (27.5-34.5); MEAN CORPUSCULAR VOLUME 86.8 fL (81-97); MEAN PLATELET VOLUME 10.1 fL (7.4-10.4); PLATELET COUNT 125 x10^3/uL (130-400); RED BLOOD COUNT 3.88 x10^6/uL (4.38-5.82); RED CELL DISTRIBUTION WIDTH 17.6 % (9.4-14.8)
[2018-11-09 05:02] LABS: ANION GAP 11 mmol/L (5-15); CALCIUM 7.5 mg/dL (8.5-10.1); CHLORIDE 99 mmol/L (98-107)
[2018-11-09 05:39] LABS: BASOPHILS # (AUTO) 0.01 x10^3/uL (0-0.1); BASOPHILS % (AUTO) 0 % (0-1); EOSINOPHILS % (AUTO) 3 % (1-7); LYMPHOCYTES # (AUTO) 1.98 x10^3/uL (1-3.4); LYMPHOCYTES % (AUTO) 32 % (22-44); MD SCAN; MONOCYTES % (AUTO) 11 % (2-9); NEUTROPHILS # (AUTO) 3.33 x10^3/uL (1.8-6.8); NEUTROPHILS % (AUTO) 54 % (42-75)
[2018-11-09] MEDS: APIXABAN 2.5 MG TABLET PO SCH ×2 (07:58→20:52)
[2018-11-09] MEDS: LISINOPRIL 5 MG TABLET PO SCH (07:58)
[2018-11-09] MEDS: GABAPENTIN 300 MG CAPSULE PO SCH ×3 (07:58→20:51)
[2018-11-09] MEDS: TAMSULOSIN 0.4 MG CAP.ER.24H PO SCH (07:58)
[2018-11-09] MEDS: METOPROLOL TARTRATE 25 MG TABLET PO SCH ×3 (07:59→20:52)
[2018-11-09] MEDS: AMIODARONE 200 MG TABLET PO SCH ×3 (07:59→20:52)
[2018-11-09] MEDS: CALCIUM ACETATE 667 MG CAPSULE PO SCH ×3 (08:00→15:54)
[2018-11-09] MEDS: INSULIN LISPRO 100 UNITS/ML, PEN SQ-INSULIN SCH ×3 (08:01→15:54)
[2018-11-09 08:03] VITALS: BP 121/78
[2018-11-09 08:31] VITALS: BP 123/89
[2018-11-09] MEDS: CALCITRIOL 0.25 MCG CAPSULE PO SCH (08:58)
[2018-11-09] MEDS: SENNA/DOCUSATE TABLET PO SCH (08:58)
[2018-11-09] MEDS: SODIUM CHLORIDE FLUSH 10ML SYR IVF SCH ×2 (08:58→20:53)
[2018-11-09 13:11] VITALS: BP 109/76
[2018-11-09 14:58] VITALS: BP 110/72
[2018-11-09] MEDS ORDERED: AMIO200T42 PO (16:53)
[2018-11-09] MEDS ORDERED: GABA-827 PO (17:01)
[2018-11-09] MEDS ORDERED: OMEP-110 PO (17:01)
[2018-11-09] MEDS ORDERED: METO75TA PO (17:01)
[2018-11-09] MEDS ORDERED: METO-429 PO (17:01)
[2018-11-09] MEDS ORDERED: ATOR10TA9 PO (17:01)
[2018-11-09] MEDS: NICOTINE 14MG/24 HR PATCH.TD24 TD SCH (17:37)
[2018-11-09 19:32] VITALS: BP 107/67
[2018-11-09] MEDS: INSULIN LISPRO 100 UNITS/ML, PEN LOW DOSE SS SQ-INSULIN SCH (20:52)
[2018-11-10 01:11] VITALS: BP 110/67
[2018-11-10] MEDS: INSULIN LISPRO 100 UNITS/ML, PEN LOW DOSE SS SQ-INSULIN SCH ×3 (07:00→16:00)
[2018-11-10] MEDS: CALCIUM ACETATE 667 MG CAPSULE PO SCH ×3 (08:00→17:00)
[2018-11-10] MEDS: CALCITRIOL 0.25 MCG CAPSULE PO SCH (08:25)
[2018-11-10] MEDS: METOPROLOL TARTRATE 25 MG TABLET PO SCH ×2 (08:28→16:00)
[2018-11-10] MEDS: GABAPENTIN 300 MG CAPSULE PO SCH ×2 (08:28→17:54)
[2018-11-10] MEDS: TAMSULOSIN 0.4 MG CAP.ER.24H PO SCH (08:28)
[2018-11-10] MEDS: APIXABAN 2.5 MG TABLET PO SCH (08:29)
[2018-11-10] MEDS: LISINOPRIL 5 MG TABLET PO SCH (09:00)
[2018-11-10] MEDS: SODIUM CHLORIDE FLUSH 10ML SYR IVF SCH (09:00)
[2018-11-10] MEDS: SENNA/DOCUSATE TABLET PO SCH (09:00)
[2018-11-10 09:03] VITALS: BP 105/67
[2018-11-10 09:45] LABS: BASOPHILS # (AUTO) 0.14 x10^3/uL (0-0.1); BASOPHILS % (AUTO) 2 % (0-1); EOSINOPHILS # (AUTO) 0.22 x10^3/uL (0-0.4); EOSINOPHILS % (AUTO) 3 % (1-7); LYMPHOCYTES # (AUTO) 1.56 x10^3/uL (1-3.4); LYMPHOCYTES % (AUTO) 18 % (22-44); MD NO; MEAN CORPUSCULAR HEMOGLOBIN 26.7 pg (27.5-34.5); MEAN CORPUSCULAR HGB CONC 31.3 g/dL (33.2-36.2); MEAN CORPUSCULAR VOLUME 85.4 fL (81-97); MEAN PLATELET VOLUME 9.3 fL (7.4-10.4); MONOCYTES # (AUTO) 0.65 x10^3/uL (0.2-0.8); MONOCYTES % (AUTO) 8 % (2-9); NEUTROPHILS # (AUTO) 5.92 x10^3/uL (1.8-6.8); NEUTROPHILS % (AUTO) 70 % (42-75); PLATELET COUNT 161 x10^3/uL (130-400); RED BLOOD COUNT 3.56 x10^6/uL (4.38-5.82); RED CELL DISTRIBUTION WIDTH 17.4 % (9.4-14.8)
[2018-11-10 09:50] LABS: ANION GAP 12 mmol/L (5-15); CALCIUM 7.1 mg/dL (8.5-10.1); CHLORIDE 100 mmol/L (98-107); CREATININE 5.04 mg/dL (0.7-1.3)
[2018-11-10] MEDS: AMIODARONE 200 MG TABLET PO SCH (10:19)
[2018-11-10 15:24] VITALS: BP 113/79
[2018-11-10] MEDS ORDERED: METO25TA35 PO (17:05)
[2018-11-10] MEDS ORDERED: LISI5TAB7 PO (17:05)
[2018-11-10] MEDS ORDERED: AMIO200T42 PO (17:05)
[2018-11-10] MEDS ORDERED: CALC667C PO (17:54)
[2018-11-10] MEDS ORDERED: TAMS-11 PO (17:54)
[2018-11-10] MEDS ORDERED: ALBU2.5V NEB (17:54)
[2018-11-10] MEDS: NICOTINE 14MG/24 HR PATCH.TD24 TD SCH (18:00)
== END 2018-11-10 18:36 | disposition home or self-care (01) | DRG 308 ==
LOC: ED 16:12 → EDIP 17:11 → 5SO 18:22 → 4WST 11-09 14:14
PROVIDERS: ADMIT Internal Medicine; ATTEND Internal Medicine
PROC: 5A1D70Z Performance of Urinary Filtration, Intermittent, Less than 6 Hours Per Day (ICD-10-PCS; principal; 2018-11-10)
DX: I48.0 Paroxysmal atrial fibrillation (principal); N18.6 End stage renal disease; D68.69 Other thrombophilia; I13.2 Hypertensive heart and chronic kidney disease with heart failure and with stage 5 chronic kidney disease, or end stage renal disease; I50.42 Chronic combined systolic (congestive) and diastolic (congestive) heart failure; D63.8 Anemia in other chronic diseases classified elsewhere; R74.8 Abnormal levels of other serum enzymes; E11.22 Type 2 diabetes mellitus with diabetic chronic kidney disease; E87.6 Hypokalemia; D69.6 Thrombocytopenia, unspecified; N40.0 Benign prostatic hyperplasia without lower urinary tract symptoms; J44.9 Chronic obstructive pulmonary disease, unspecified; G62.9 Polyneuropathy, unspecified; F17.210 Nicotine dependence, cigarettes, uncomplicated; I25.10 Atherosclerotic heart disease of native coronary artery without angina pectoris; N25.0 Renal osteodystrophy; Z79.4 Long term (current) use of insulin; Z79.899 Other long term (current) drug therapy; Z89.511 Acquired absence of right leg below knee; Z79.01 Long term (current) use of anticoagulants; Z99.2 Dependence on renal dialysis; Z91.14 Patient's other noncompliance with medication regimen; I25.2 Old myocardial infarction; Z91.19 Patient's noncompliance with other medical treatment and regimen
CPT/HCPCS: 36415; 71045; 80048; 80053; 82962; 83735; 83880; 84484; 85025; 93005; 96361; 96374; 96376; G0378; J1940; Q0162; J1815; J7040

== ENCOUNTER 2018-12-10 09:40 | Emergency (ER) | payer MEDICAID ==
[~2018-12-10] VITALS: Ht 185.4 cm; Wt 96.0 kg
[~2018-12-10 09:40] MED LIST changes: +ALBU2.5V NEB; +GABA-827 PO; +METO-429 PO; +METO75TA PO
--- NOTE | 2018-12-10 09:50 | NUR ---
PT BIB [facility] TODAY FOR LLQ ABDOMINAL PAIN THAT BEGAN AT 0300 THIS MORNING. PT CURRENTLY STATES THE PAIN IS GONE. PT DENIES CP. DENIES SOB. STATES HE HAS A-FIB AND DOES NOT TAKE A BLOOD THINNER BUT IS SUPPOSED TO BE ON A "HEART PILL" THAT HE HAS NOT PICKED UP YET. PT STATES HE "CODED" AND HAD CPR ON SATURDAY DURING DIALYSIS BUT WOKE UP DURING CHEST COMPRESSIONS AND WAS NOT HOSPITALIZED. PT STATES HE WAS CARDIOVERTED IN BEGINNING OF OCTOBER AND HOSPITALIZED THEN. PT RESING ON WITH FAMILY AT BEDSIDE. PT DENIES NEEDS. NADN. TACHYCARDIC NOW AT HR 131. PA AT BEDSIDE ASSESSING PT.
--- NOTE | 2018-12-10 09:55 | NUR ---
PT HAS DIALYSIS CATHETER IN PLACE WITH DRESSING OVER IT. STATES HE HAD DIALYSIS ON SATURDAY AND IS SUPPOSED TO TODAY AT 1230.
--- NOTE | 2018-12-10 09:56 | NUR ---
PT REFUSED TO PUT GOWN ON. PT ASKED FAMILY TO LEAVE AT THIS TIME FOR RECTAL EXAM BEING PERFORMED BY PA.
--- NOTE | 2018-12-10 09:59 | NUR ---
PT REFUSED RECTAL EXAM.
--- NOTE | 2018-12-10 10:09 | NUR ---
BLADDER SCANNED PT FOR 55CC AT THIS TIME. PT STATES HE CANNOT URINATE NOW BUT WILL ATTEMPT TO. THIS RN ASKED IF STRAIGHT CATH CAN BE PERFORMED. PT REFUSING AT THIS TIME. STATES HE WILL ATTEMPT TO URINATE.
--- NOTE | 2018-12-10 10:23 | NUR ---
PT BEING TAKEN TO RADIOLOGY AT THIS TIME.
[2018-12-10 10:34] LABS: BASOPHILS # (AUTO) 0.03 x10^3/uL (0-0.1); BASOPHILS % (AUTO) 0 % (0-1); EOSINOPHILS # (AUTO) 0.19 x10^3/uL (0-0.4); EOSINOPHILS % (AUTO) 3 % (1-7); LYMPHOCYTES # (AUTO) 1.35 x10^3/uL (1-3.4); LYMPHOCYTES % (AUTO) 20 % (22-44); MD NO; MEAN CORPUSCULAR HEMOGLOBIN 27.2 pg (27.5-34.5); MEAN CORPUSCULAR HGB CONC 31.3 g/dL (33.2-36.2); MEAN CORPUSCULAR VOLUME 86.6 fL (81-97); MEAN PLATELET VOLUME 9.3 fL (7.4-10.4); MONOCYTES # (AUTO) 0.42 x10^3/uL (0.2-0.8); MONOCYTES % (AUTO) 6 % (2-9); NEUTROPHILS # (AUTO) 4.72 x10^3/uL (1.8-6.8); NEUTROPHILS % (AUTO) 70 % (42-75); PLATELET COUNT 208 x10^3/uL (130-400); RED BLOOD COUNT 3.83 x10^6/uL (4.38-5.82); RED CELL DISTRIBUTION WIDTH 18.8 % (9.4-14.8)
--- NOTE | 2018-12-10 10:34 | NUR ---
PT BACK FROM RADIOLOGY AT THIS TIME. RESTING ON GURNEY. BRITT
--- NOTE | 2018-12-10 10:39 | NUR ---
PT STATED HIS STOMACH HURTS THEN PASSED GAS AND SAID IT NO LONGER HURTS. VSS. WALLACE.
[2018-12-10 10:42] LABS: ALBUMIN 2.6 g/dL (3.4-5.0); ANION GAP 11 mmol/L (5-15); CALCIUM 8.2 mg/dL (8.5-10.1); CHLORIDE 103 mmol/L (98-107); CREATININE 5.54 mg/dL (0.7-1.3)
--- NOTE | 2018-12-10 10:58 | NUR ---
THIS RN REMINDED PT HE NEEDS TO TRY AND URINATE. PT STATES HE WILL TRY.
[2018-12-10] MEDS ORDERED: DILTIAZEM 5 MG/ML, 5ML ONE (11:12)
[2018-12-10] MEDS ORDERED: DILTIAZEM 5 MG/ML, 5ML IVPush ONE (11:30)
--- NOTE | 2018-12-10 11:32 | NUR ---
PT MEDICATED PER EMAR AT THIS TIME. RESTING ON GURNEY. DENIES NEEDS. VSS. NADN. CALL LIGHT IN REACH.
[2018-12-10 11:50] VITALS: BP 111/59
--- NOTE | 2018-12-10 12:03 | NUR ---
PT STATES HE DOES NOT NEED TO VOID AT THIS TIME. STATES HE DOES NOT WANT TO BE STRAIGHT CATH'D. PA AWARE. PT DENIES NEEDS. NADN. VSS. CALL LIGHT IN REACH. PA ON PHONE WITH PT'S DIALYSIS CETNER LETTING THEM KNOW HE IS CURRENTLY HERE.
[2018-12-10] MEDS ORDERED: METOPROLOL TARTRATE 50 MG TABLET ONE (12:18)
[2018-12-10] MEDS ORDERED: METOPROLOL TARTRATE 50 MG TABLET PO ONE (12:30)
== END 2018-12-10 12:29 | disposition home or self-care (01) ==
LOC: ED 10:09
DX: I48.2 Chronic atrial fibrillation (principal); R10.32 Left lower quadrant pain; E11.22 Type 2 diabetes mellitus with diabetic chronic kidney disease; I12.9 Hypertensive chronic kidney disease with stage 1 through stage 4 chronic kidney disease, or unspecified chronic kidney disease; N18.9 Chronic kidney disease, unspecified; J44.9 Chronic obstructive pulmonary disease, unspecified; I25.2 Old myocardial infarction; I48.91 Unspecified atrial fibrillation; Z72.9 Problem related to lifestyle, unspecified
CPT/HCPCS: 36415; 71045; 74018; 80048; 82040; 85025; 93005; 96374